=== PATIENT | male | born 1975 | race African-American/Black ===

== ENCOUNTER 2017-06-23 21:40 | Inpatient (IN) ==
[2017-06-23] MEDS ORDERED: ONDANSETRON 4 MG/2 ML VIAL IV STA (23:06)
[2017-06-23] MEDS ORDERED: SODIUM CHLORIDE 0.9% 2,000 ML IV STA (23:06)
[2017-06-23] MEDS ORDERED: CEFEPIME 2,000 MG in SODIUM CHLORIDE 0.9% 100 ML IV STA (23:09)
[2017-06-23] MEDS ORDERED: VANCOMYCIN INJ 1,000 MG in SODIUM CHLORIDE 0.9% 250 ML IV STA (23:09)
[2017-06-23] MEDS ORDERED: INSULIN REGULAR 100 UNIT/ML IV STA (23:13)
[2017-06-23] MEDS ORDERED: VANCOMYCIN 1,000 MG VIAL ONE (23:53)
[2017-06-23] MEDS ORDERED: ONDANSETRON 4 MG/2 ML VIAL ONE (23:53)
[2017-06-23] MEDS ORDERED: CEFEPIME 1,000 MG VIAL ONE (23:53)
[2017-06-23] MEDS ORDERED: INSULIN REGULAR 100 UNIT/ML ONE (23:54)
[2017-06-23 23:57] LABS: Basophils # 0.1 10*3/uL (0.0-0.2); Basophils % 0.3 % (0.0-0.8); Eosinophils % 0.1 % (0.00-10.9); Hematocrit 40.6 VOL% (42.0-52.0); Hemoglobin 14.2 GM/DL (14.0-18.0); Immature Granulocytes % 0.6 %; Immature Granulocytes Absolute 0.12 #; Lymphocytes % 15.5 % (21.2-54.2); Mean Corpuscular Hemoglobin 30 PG (27-34); Mean Corpuscular Volume 84.9 FL (87-102); Mean Platelet Volume 11.1 FL (9.6-12.0); Monocytes # 1.3 10*3/uL (0.11-0.8); Monocytes % 6.9 % (1.7-12.7); Neutrophils # 14.7 10*3/uL (1.4-7.4); Neutrophils % 76.6 % (38.7-73.9); Platelet Count 291 T/CUMM (130-400); Red Blood Count 4.78 MC/CUMM (3.8-5.5); Red Cell Distribution Width 11.6 % (9.3-17.3); White Blood Count 19.2 T/CUMM (4-12)
[2017-06-24 00:14] LABS: VBG Base Excess 2.5 MEQ/L (0-4); VBG HCO3 25.9 MEQ/L (24-28); VBG Oxygen Saturation 96.9 %; VBG PCO2 36.2 MMHG (41-51); VBG PH 7.472; VBG PO2 87.6 MMHG (17-40)
[2017-06-24 00:30] LABS: Lactic Acid 3.8 MMOL/L (0.4-2.0)
[2017-06-24] MEDS ORDERED: INSULIN REGULAR 100 UNIT/ML IV ONE (00:36)
[2017-06-24 00:41] LABS: Alanine Aminotransferase 13 U/L (16-61); Albumin 3.4 G/DL (3.4-5.0); Alkaline Phosphatase 148 U/L (45-117); Aspartate Amino Transferase 9 U/L (0-37); Blood Urea Nitrogen 8 MG/DL (7-18); Osmolality,Calculated 293.4 MOS/KG (273-304); Potassium 4.2 MMOL/L (3.5-5.1); Sodium 133 MMOL/L (136-145)
[2017-06-24 00:44] LABS: Glucose 630 MG/DL (74-106)
[2017-06-24] MEDS ORDERED: ONDANSETRON 4 MG/2 ML VIAL IV STA (00:45)
[2017-06-24] MEDS ORDERED: MORPHINE 4 MG/1 ML VIAL IV STA (00:45)
[2017-06-24] MEDS ORDERED: MORPHINE 10 MG/1 ML VIAL ONE (00:50)
[2017-06-24] MEDS ORDERED: DEXTROSE 50% 25 GM/50 ML VIAL IV PRN ×2 (00:57→01:02)
[2017-06-24] MEDS ORDERED: GLUCAGON 1 MG VIAL IM PRN ×2 (00:57→01:02)
[2017-06-24] MEDS ORDERED: INSULIN REGULAR DRIP 100 ML IV SCH (01:00)
[2017-06-24] MEDS ORDERED: ONDANSETRON 4 MG/2 ML VIAL IV PRN ×2 (01:02→09:45)
[2017-06-24 02:26] LABS: Apearance,Urine CLEAR (Clear); Bilirubin,Urine Negative (Negative); Blood, Urine Negative (Negative); Glucose,Urine (UA) >=500 mg/dL (Negative); Ketones,Urine Negative (Negative); Nitrite,Urine Negative (Negative); Protein,Urine Negative; RBC,Urine <1 /HPF (0-4); Urine Color Straw (Yellow); Urine Urobilinogen < 2.0 EU/DL (0.2-1.0)
[2017-06-24] MEDS: PIPERACILLIN/TAZOBACTAM 3,375 MG in SODIUM CHLORIDE 0.9% 100 ML IV SCH ×3 (03:34→18:23)
[2017-06-24] MEDS: SODIUM CHLORIDE 0.9% 1,000 ML IV SCH ×3 (03:34→18:24)
[2017-06-24] MEDS: MORPHINE 4 MG/1 ML VIAL IV PRN ×4 (07:15→20:43)
[2017-06-24] MEDS: VANCOMYCIN INJ 1,250 MG in SODIUM CHLORIDE 0.9% 250 ML IV SCH ×2 (07:18→16:00)
[2017-06-24] MEDS ORDERED: INSULIN REGULAR 100 UNIT/ML SUBCUT SCH (07:30)
[2017-06-24 07:37] LABS: Basophils # 0.1 10*3/uL (0.0-0.2); Basophils % 0.3 % (0.0-0.8); Eosinophils % 0.2 % (0.00-10.9); Hemoglobin 12.8 GM/DL (14.0-18.0); Immature Granulocytes % 0.8 %; Immature Granulocytes Absolute 0.15 #; Lymphocytes # 3.2 10*3/uL (1.4-4.0); Lymphocytes % 16.8 % (21.2-54.2); Mean Corpuscular HGB Conc 35.6 GM/DL (32-36); Mean Corpuscular Hemoglobin 30 PG (27-34); Mean Corpuscular Volume 83.9 FL (87-102); Monocytes # 1.6 10*3/uL (0.11-0.8); Monocytes % 8.4 % (1.7-12.7); Neutrophils % 73.5 % (38.7-73.9); Platelet Count 256 T/CUMM (130-400); Red Blood Count 4.29 MC/CUMM (3.8-5.5); Red Cell Distribution Width 11.7 % (9.3-17.3); White Blood Count 19.1 T/CUMM (4-12)
[2017-06-24] MEDS: INSULIN REGULAR 100 UNIT/ML SUBCUT SCH ×4 (07:52→20:44)
[2017-06-24 08:06] LABS: Band Neutrophils 1 % (0-10); Giant Platelets Few; Hypochromasia 1+; Lymphocytes 14 % (20-55); Platelet Estimate Adequate; Segmented Neutrophils 73 % (50-85); Total Cells Counted 100
[2017-06-24 08:09] LABS: Albumin 2.8 G/DL (3.4-5.0); Bilirubin,Total 0.8 MG/DL (0.2-1.0); Calcium 8.2 MG/DL (8.5-10.1); Osmolality,Calculated 282.3 MOS/KG (273-304); Potassium 3.5 MMOL/L (3.5-5.1); Total Protein 6.1 G/DL (6.4-8.3)
[2017-06-24] MEDS ORDERED: HYDROmorphone 2 MG/1 ML VIAL ONE (09:43)
[2017-06-24] MEDS ORDERED: ONDANSETRON 4 MG/2 ML VIAL ONE ×2 (09:43→09:46)
[2017-06-24] MEDS ORDERED: PROPOFOL 200 MG/20 ML VIAL IV ONE (09:45)
[2017-06-24] MEDS: HYDROmorphone 2 MG/1 ML VIAL IV PRN ×2 (09:45→09:50)
[2017-06-24] MEDS ORDERED: SUCCINYLCHOLINE 200 MG/10 ML VIAL ONE (09:46)
[2017-06-24] MEDS ORDERED: ROCURONIUM 100 MG/10 ML VIAL IV ONE (09:46)
[2017-06-24] MEDS ORDERED: SEVOFLURANE 1 UNIT/15 MINUTE INH ONE (09:46)
[2017-06-24] MEDS ORDERED: MIDAZOLAM 2 MG/2 ML VIAL ONE (09:46)
[2017-06-24] MEDS ORDERED: fentaNYL 100 MCG/2 ML VIAL ONE (09:46)
[2017-06-24] MEDS: PREGABALIN 75 MG CAPSULE PO SCH ×2 (10:46→20:44)
[2017-06-24] MEDS: ENOXAPARIN 40 MG/0.4 ML SYRINGE SUBCUT SCH (10:46)
[2017-06-24] MEDS: PRAVASTATIN 20 MG TABLET PO SCH (10:46)
[2017-06-24] MEDS ORDERED: ACETAMINOPHEN 325 MG TABLET PO PRN (16:24)
[2017-06-25] MEDS: VANCOMYCIN INJ 1,250 MG in SODIUM CHLORIDE 0.9% 250 ML IV SCH ×2 (00:34→07:45)
[2017-06-25] MEDS: MORPHINE 4 MG/1 ML VIAL IV PRN ×2 (01:04→08:45)
[2017-06-25] MEDS: PIPERACILLIN/TAZOBACTAM 3,375 MG in SODIUM CHLORIDE 0.9% 100 ML IV SCH ×3 (03:39→18:34)
[2017-06-25] MEDS: SODIUM CHLORIDE 0.9% 1,000 ML IV SCH ×3 (03:39→20:07)
[2017-06-25 04:28] LABS: Basophils # 0.1 10*3/uL (0.0-0.2); Basophils % 0.3 % (0.0-0.8); Eosinophils # 0.1 10*3/uL (0.0-0.87); Eosinophils % 0.8 % (0.00-10.9); Hematocrit 32.9 VOL% (42.0-52.0); Hemoglobin 11.5 GM/DL (14.0-18.0); Immature Granulocytes % 0.7 %; Immature Granulocytes Absolute 0.11 #; Lymphocytes # 3.3 10*3/uL (1.4-4.0); Lymphocytes % 19.7 % (21.2-54.2); Mean Corpuscular Hemoglobin 30 PG (27-34); Mean Corpuscular Volume 86.1 FL (87-102); Mean Platelet Volume 10.7 FL (9.6-12.0); Monocytes # 1.2 10*3/uL (0.11-0.8); Monocytes % 7.2 % (1.7-12.7); Neutrophils # 11.8 10*3/uL (1.4-7.4); Neutrophils % 71.3 % (38.7-73.9); Platelet Count 247 T/CUMM (130-400); Red Blood Count 3.82 MC/CUMM (3.8-5.5); Red Cell Distribution Width 11.6 % (9.3-17.3); White Blood Count 16.6 T/CUMM (4-12)
[2017-06-25 04:55] LABS: Osmolality,Calculated 285.4 MOS/KG (273-304); Potassium 3.7 MMOL/L (3.5-5.1)
[2017-06-25 05:22] LABS: Band Neutrophils 3 % (0-10); Eosinophils 2 % (0-10); Lymphocytes 16 % (20-55); Platelet Estimate Normal; Segmented Neutrophils 78 % (50-85); Total Cells Counted 100
[2017-06-25] MEDS: INSULIN REGULAR 100 UNIT/ML SUBCUT SCH ×4 (07:45→20:22)
[2017-06-25] MEDS: ENOXAPARIN 40 MG/0.4 ML SYRINGE SUBCUT SCH (08:45)
[2017-06-25] MEDS: PREGABALIN 75 MG CAPSULE PO SCH ×2 (08:46→20:22)
[2017-06-25] MEDS: PRAVASTATIN 20 MG TABLET PO SCH (08:46)
[2017-06-25] MEDS ORDERED: HYDROmorphone 2 MG/1 ML VIAL IV ONE (09:37)
[2017-06-25] MEDS ORDERED: INSULIN GLARGINE 100 UNIT/ML SUBCUT SCH (12:30)
[2017-06-25] MEDS: VANCOMYCIN INJ 1,500 MG in SODIUM CHLORIDE 0.9% 500 ML IV SCH ×2 (16:39→23:21)
[2017-06-25] MEDS: HYDROmorphone 2 MG/1 ML VIAL IV PRN (23:38)
[2017-06-26] MEDS: HYDROmorphone 2 MG/1 ML VIAL IV PRN (04:48)
[2017-06-26] MEDS: PIPERACILLIN/TAZOBACTAM 3,375 MG in SODIUM CHLORIDE 0.9% 100 ML IV SCH ×2 (04:50→12:07)
[2017-06-26 06:03] LABS: Basophils % 0.2 % (0.0-0.8); Eosinophils # 0.2 10*3/uL (0.0-0.87); Eosinophils % 1.2 % (0.00-10.9); Hematocrit 32.9 VOL% (42.0-52.0); Hemoglobin 11.7 GM/DL (14.0-18.0); Immature Granulocytes % 0.7 %; Immature Granulocytes Absolute 0.09 #; Lymphocytes # 3.6 10*3/uL (1.4-4.0); Lymphocytes % 27.7 % (21.2-54.2); Mean Corpuscular HGB Conc 35.6 GM/DL (32-36); Mean Corpuscular Hemoglobin 30 PG (27-34); Mean Corpuscular Volume 84.4 FL (87-102); Mean Platelet Volume 11.2 FL (9.6-12.0); Monocytes # 0.8 10*3/uL (0.11-0.8); Monocytes % 6.4 % (1.7-12.7); Neutrophils # 8.2 10*3/uL (1.4-7.4); Neutrophils % 63.8 % (38.7-73.9); Platelet Count 280 T/CUMM (130-400); Red Cell Distribution Width 11.7 % (9.3-17.3); White Blood Count 12.9 T/CUMM (4-12)
[2017-06-26 06:24] LABS: Calcium 8.3 MG/DL (8.5-10.1); Osmolality,Calculated 291.5 MOS/KG (273-304); Potassium 3.8 MMOL/L (3.5-5.1)
[2017-06-26] MEDS ORDERED: INSULIN GLARGINE 100 UNIT/ML SUBCUT SCH (09:00)
[2017-06-26] MEDS: VANCOMYCIN INJ 1,500 MG in SODIUM CHLORIDE 0.9% 500 ML IV SCH (09:02)
[2017-06-26] MEDS: INSULIN REGULAR 100 UNIT/ML SUBCUT SCH ×4 (09:03→20:39)
[2017-06-26] MEDS: PRAVASTATIN 20 MG TABLET PO SCH (09:04)
[2017-06-26] MEDS: PREGABALIN 75 MG CAPSULE PO SCH ×2 (09:04→20:38)
[2017-06-26] MEDS: ENOXAPARIN 40 MG/0.4 ML SYRINGE SUBCUT SCH (09:04)
[2017-06-26] MEDS ORDERED: MORPHINE 4 MG/1 ML VIAL IV PRN (09:13)
[2017-06-26] MEDS: SULFAMETHOX/TRIMETHOPRIM 800-160 MG TABLET PO SCH ×2 (14:44→20:38)
[2017-06-26] MEDS: INSULIN GLARGINE 100 UNIT/ML SUBCUT SCH (18:40)
[2017-06-26] MEDS: DOCUSATE SODIUM 100 MG CAPSULE PO SCH (21:31)
[2017-06-27 05:25] LABS: Basophils # 0.1 10*3/uL (0.0-0.2); Basophils % 0.4 % (0.0-0.8); Eosinophils # 0.2 10*3/uL (0.0-0.87); Eosinophils % 1.3 % (0.00-10.9); Hematocrit 34.9 VOL% (42.0-52.0); Hemoglobin 12.4 GM/DL (14.0-18.0); Immature Granulocytes % 1.3 %; Immature Granulocytes Absolute 0.15 #; Lymphocytes # 2.8 10*3/uL (1.4-4.0); Lymphocytes % 24.5 % (21.2-54.2); Mean Corpuscular HGB Conc 35.5 GM/DL (32-36); Mean Corpuscular Hemoglobin 30 PG (27-34); Mean Corpuscular Volume 84.1 FL (87-102); Mean Platelet Volume 10.9 FL (9.6-12.0); Monocytes # 0.8 10*3/uL (0.11-0.8); Monocytes % 7.1 % (1.7-12.7); Neutrophils # 7.6 10*3/uL (1.4-7.4); Neutrophils % 65.4 % (38.7-73.9); Platelet Count 318 T/CUMM (130-400); Red Blood Count 4.15 MC/CUMM (3.8-5.5); Red Cell Distribution Width 11.7 % (9.3-17.3); White Blood Count 11.6 T/CUMM (4-12)
[2017-06-27 05:58] LABS: Calcium 8.6 MG/DL (8.5-10.1); Osmolality,Calculated 288.7 MOS/KG (273-304); Potassium 3.6 MMOL/L (3.5-5.1)
[2017-06-27] MEDS ORDERED: INSULIN GLARGINE 100 UNIT/ML SUBCUT SCH (07:25)
[2017-06-27] MEDS: PRAVASTATIN 20 MG TABLET PO SCH (08:05)
[2017-06-27] MEDS: SULFAMETHOX/TRIMETHOPRIM 800-160 MG TABLET PO SCH (08:05)
[2017-06-27] MEDS: DOCUSATE SODIUM 100 MG CAPSULE PO SCH (08:05)
[2017-06-27] MEDS: PREGABALIN 75 MG CAPSULE PO SCH (08:05)
[2017-06-27] MEDS: ENOXAPARIN 40 MG/0.4 ML SYRINGE SUBCUT SCH (08:06)
[2017-06-27] MEDS: INSULIN REGULAR 100 UNIT/ML SUBCUT SCH (08:13)
[2017-06-27] MEDS: SODIUM CHLORIDE 0.9% 1,000 ML IV SCH ×2 (08:15→08:18)
[2017-06-27] MEDS: INSULIN GLARGINE 100 UNIT/ML SUBCUT SCH (08:19)
[2017-06-27 11:23] VITALS: BP 113/71
== END 2017-06-27 11:28 | disposition home or self-care (01) | DRG 710 ==
LOC: N.ED 21:40 → N.EDINP 06-24 01:02 → N.CC 06-24 02:52 → N.3E 06-25 21:50
PROVIDERS: ADMIT Internal Medicine; ATTEND Internal Medicine

== ENCOUNTER 2017-08-18 18:34 | Inpatient (IN) ==
[2017-08-24 17:55] VITALS: BP 130/69
== END 2017-08-24 19:13 | disposition left against medical advice (07) | DRG 364 ==
LOC: N.ED 18:34 → N.EDINP 21:47 → SUATTDRO 21:47 → N.EDINP 22:01 → N.5E 22:36
PROVIDERS: ADMIT Internal Medicine; ATTEND Internal Medicine

== ENCOUNTER 2017-08-25 12:57 | Inpatient (IN) ==
[2017-08-25] MEDS ORDERED: GLUCAGON 1 MG VIAL IM PRN (14:30)
[2017-08-25] MEDS ORDERED: DEXTROSE 50% 25 GM/50 ML VIAL IV PRN (14:30)
[2017-08-25 14:49] LABS: Lactic Acid 2.8 MMOL/L (0.4-2.0)
[2017-08-25 14:54] LABS: Basophils # 0.1 10*3/uL (0.0-0.2); Basophils % 0.4 % (0.0-0.8); Eosinophils # 0.1 10*3/uL (0.0-0.87); Eosinophils % 0.6 % (0.00-10.9); Hematocrit 38.1 VOL% (42.0-52.0); Hemoglobin 12.9 GM/DL (14.0-18.0); Immature Granulocytes % 1.1 %; Immature Granulocytes Absolute 0.15 #; Lymphocytes # 2.6 10*3/uL (1.4-4.0); Lymphocytes % 19.3 % (21.2-54.2); Mean Corpuscular HGB Conc 33.9 GM/DL (32-36); Mean Corpuscular Hemoglobin 30 PG (27-34); Mean Corpuscular Volume 87.4 FL (87-102); Monocytes # 0.8 10*3/uL (0.11-0.8); Monocytes % 5.9 % (1.7-12.7); Neutrophils # 9.8 10*3/uL (1.4-7.4); Neutrophils % 72.7 % (38.7-73.9); Platelet Count 433 T/CUMM (130-400); Red Blood Count 4.36 MC/CUMM (3.8-5.5); White Blood Count 13.5 T/CUMM (4-12)
[2017-08-25 15:08] LABS: Alanine Aminotransferase 19 U/L (16-61); Albumin 3.2 G/DL (3.4-5.0); Alkaline Phosphatase 112 U/L (45-117); Aspartate Amino Transferase 12 U/L (0-37); Bilirubin,Total < 0.39 MG/DL (0.2-1.0); Blood Urea Nitrogen 5 MG/DL (7-18); Glucose 307 MG/DL (74-106); Potassium 4.2 MMOL/L (3.5-5.1); Sodium 136 MMOL/L (136-145); Total Protein 7.6 G/DL (6.4-8.3)
[2017-08-25] MEDS ORDERED: SODIUM CHLORIDE 0.9% 2,200 ML IV ONE (16:59)
[2017-08-25] MEDS ORDERED: INSULIN ASPART PROTAMINE/ASPART 70/30 100 UNIT/ML SUBCUT SCH (17:00)
[2017-08-25] MEDS: INSULIN LISPRO 100 UNIT/ML SUBCUT SCH ×2 (17:04→21:08)
[2017-08-25] MEDS: PREGABALIN 75 MG CAPSULE PO SCH ×2 (17:04→21:05)
[2017-08-25 17:38] LABS: Apearance,Urine CLEAR (Clear); Bilirubin,Urine Negative (Negative); Blood, Urine Negative (Negative); Glucose,Urine (UA) >=500 mg/dL (Negative); Ketones,Urine Negative (Negative); Nitrite,Urine Negative (Negative); Protein,Urine Negative; RBC,Urine <1 /HPF (0-4); Urine Color Straw (Yellow); Urine Specific Gravity 1.011 (1.001-1.035); Urine Urobilinogen < 2.0 EU/DL (0.2-1.0)
[2017-08-25] MEDS: LEVOFLOXACIN INJ 750 MG in PREMIX 1 EACH IV SCH (17:44)
[2017-08-25] MEDS: ENOXAPARIN 40 MG/0.4 ML SYRINGE SUBCUT SCH (21:05)
[2017-08-25] MEDS: traZODone 50 MG TABLET PO SCH (21:05)
[2017-08-25] MEDS: VANCOMYCIN INJ 1,000 MG in SODIUM CHLORIDE 0.9% 250 ML IV SCH (21:05)
[2017-08-25] MEDS: SERTRALINE 25 MG TABLET PO SCH (21:06)
[2017-08-25] MEDS: INSULIN GLARGINE 100 UNIT/ML SUBCUT SCH (21:08)
[2017-08-25] MEDS: ZIPRASIDONE 20 MG CAPSULE PO SCH (21:08)
[2017-08-25] MEDS: MORPHINE 4 MG/1 ML VIAL IV PRN (21:42)
[2017-08-26 07:51] LABS: Basophils % 0.3 % (0.0-0.8); Eosinophils # 0.2 10*3/uL (0.0-0.87); Eosinophils % 1.4 % (0.00-10.9); Hematocrit 36.5 VOL% (42.0-52.0); Hemoglobin 12.6 GM/DL (14.0-18.0); Immature Granulocytes % 1.6 %; Immature Granulocytes Absolute 0.19 #; Lymphocytes # 3.5 10*3/uL (1.4-4.0); Lymphocytes % 29.1 % (21.2-54.2); Mean Corpuscular HGB Conc 34.5 GM/DL (32-36); Mean Corpuscular Hemoglobin 30 PG (27-34); Mean Corpuscular Volume 86.5 FL (87-102); Mean Platelet Volume 9.6 FL (9.6-12.0); Monocytes # 0.8 10*3/uL (0.11-0.8); Monocytes % 6.9 % (1.7-12.7); Neutrophils # 7.4 10*3/uL (1.4-7.4); Neutrophils % 60.7 % (38.7-73.9); Platelet Count 417 T/CUMM (130-400); Red Blood Count 4.22 MC/CUMM (3.8-5.5); Red Cell Distribution Width 12.9 % (9.3-17.3); White Blood Count 12.1 T/CUMM (4-12)
[2017-08-26 08:15] LABS: Calcium 9.1 MG/DL (8.5-10.1); Osmolality,Calculated 282.4 MOS/KG (273-304); Potassium 4.4 MMOL/L (3.5-5.1)
[2017-08-26] MEDS: MORPHINE 4 MG/1 ML VIAL IV PRN ×2 (08:30→17:36)
[2017-08-26] MEDS ORDERED: GLUCAGON 1 MG VIAL IM PRN (08:48)
[2017-08-26] MEDS ORDERED: DEXTROSE 50% 25 GM/50 ML VIAL IV PRN (08:48)
[2017-08-26] MEDS: VANCOMYCIN INJ 1,000 MG in SODIUM CHLORIDE 0.9% 250 ML IV SCH ×2 (09:00→21:50)
[2017-08-26] MEDS: INSULIN LISPRO 100 UNIT/ML SUBCUT SCH ×4 (10:18→21:51)
[2017-08-26] MEDS: INSULIN ASPART PROTAMINE/ASPART 70/30 100 UNIT/ML SUBCUT SCH ×3 (10:18→16:05)
[2017-08-26] MEDS: PRAVASTATIN 20 MG TABLET PO SCH (10:19)
[2017-08-26] MEDS: PREGABALIN 75 MG CAPSULE PO SCH ×3 (10:19→21:45)
[2017-08-26] MEDS: ZIPRASIDONE 20 MG CAPSULE PO SCH ×2 (10:19→21:45)
[2017-08-26] MEDS: LISINOPRIL 2.5 MG TABLET PO SCH (10:20)
[2017-08-26] MEDS: LEVOFLOXACIN INJ 750 MG in PREMIX 1 EACH IV SCH (17:07)
[2017-08-26] MEDS: SERTRALINE 25 MG TABLET PO SCH (21:45)
[2017-08-26] MEDS: traZODone 50 MG TABLET PO SCH (21:45)
[2017-08-26] MEDS: ENOXAPARIN 40 MG/0.4 ML SYRINGE SUBCUT SCH (21:46)
[2017-08-26] MEDS: INSULIN GLARGINE 100 UNIT/ML SUBCUT SCH (21:47)
[2017-08-27] MEDS: MORPHINE 4 MG/1 ML VIAL IV PRN ×4 (01:19→21:53)
[2017-08-27 05:16] LABS: Basophils # 0.1 10*3/uL (0.0-0.2); Basophils % 0.5 % (0.0-0.8); Eosinophils # 0.1 10*3/uL (0.0-0.87); Eosinophils % 1.1 % (0.00-10.9); Hematocrit 33.9 VOL% (42.0-52.0); Hemoglobin 11.6 GM/DL (14.0-18.0); Immature Granulocytes % 3.8 %; Immature Granulocytes Absolute 0.47 #; Lymphocytes # 4.4 10*3/uL (1.4-4.0); Lymphocytes % 35.6 % (21.2-54.2); Mean Corpuscular HGB Conc 34.2 GM/DL (32-36); Mean Corpuscular Hemoglobin 30 PG (27-34); Mean Corpuscular Volume 86.3 FL (87-102); Mean Platelet Volume 9.7 FL (9.6-12.0); Monocytes # 0.8 10*3/uL (0.11-0.8); Monocytes % 6.8 % (1.7-12.7); Neutrophils # 6.4 10*3/uL (1.4-7.4); Neutrophils % 52.2 % (38.7-73.9); Platelet Count 370 T/CUMM (130-400); Red Blood Count 3.93 MC/CUMM (3.8-5.5); Red Cell Distribution Width 12.8 % (9.3-17.3); White Blood Count 12.3 T/CUMM (4-12)
[2017-08-27] MEDS: VANCOMYCIN INJ 1,000 MG in SODIUM CHLORIDE 0.9% 250 ML IV SCH ×2 (08:40→21:54)
[2017-08-27] MEDS: INSULIN LISPRO 100 UNIT/ML SUBCUT SCH ×4 (08:42→21:12)
[2017-08-27] MEDS: INSULIN ASPART PROTAMINE/ASPART 70/30 100 UNIT/ML SUBCUT SCH ×3 (08:42→18:08)
[2017-08-27] MEDS: PREGABALIN 75 MG CAPSULE PO SCH ×3 (08:46→21:01)
[2017-08-27] MEDS: ZIPRASIDONE 20 MG CAPSULE PO SCH ×2 (08:46→21:01)
[2017-08-27] MEDS: PRAVASTATIN 20 MG TABLET PO SCH (08:47)
[2017-08-27] MEDS: LISINOPRIL 2.5 MG TABLET PO SCH (08:47)
[2017-08-27] MEDS: LEVOFLOXACIN INJ 750 MG in PREMIX 1 EACH IV SCH (17:47)
[2017-08-27] MEDS: traZODone 50 MG TABLET PO SCH (21:01)
[2017-08-27] MEDS: SERTRALINE 25 MG TABLET PO SCH (21:01)
[2017-08-27] MEDS: ENOXAPARIN 40 MG/0.4 ML SYRINGE SUBCUT SCH (21:08)
[2017-08-27] MEDS: INSULIN GLARGINE 100 UNIT/ML SUBCUT SCH (21:11)
[2017-08-28 04:49] LABS: Basophils # 0.1 10*3/uL (0.0-0.2); Basophils % 0.5 % (0.0-0.8); Eosinophils # 0.1 10*3/uL (0.0-0.87); Eosinophils % 1.2 % (0.00-10.9); Hematocrit 33.5 VOL% (42.0-52.0); Hemoglobin 11.2 GM/DL (14.0-18.0); Immature Granulocytes % 2.9 %; Immature Granulocytes Absolute 0.34 #; Lymphocytes % 34.1 % (21.2-54.2); Mean Corpuscular HGB Conc 33.4 GM/DL (32-36); Mean Corpuscular Hemoglobin 30 PG (27-34); Mean Corpuscular Volume 88.4 FL (87-102); Mean Platelet Volume 9.4 FL (9.6-12.0); Monocytes # 0.7 10*3/uL (0.11-0.8); Neutrophils # 6.5 10*3/uL (1.4-7.4); Neutrophils % 55.3 % (38.7-73.9); Platelet Count 336 T/CUMM (130-400); Red Blood Count 3.79 MC/CUMM (3.8-5.5); Red Cell Distribution Width 12.6 % (9.3-17.3); White Blood Count 11.7 T/CUMM (4-12)
[2017-08-28 05:13] LABS: Calcium 8.4 MG/DL (8.5-10.1); Osmolality,Calculated 280.3 MOS/KG (273-304); Potassium 3.8 MMOL/L (3.5-5.1)
[2017-08-28] MEDS: MORPHINE 4 MG/1 ML VIAL IV PRN ×3 (07:17→20:19)
[2017-08-28] MEDS: INSULIN LISPRO 100 UNIT/ML SUBCUT SCH ×4 (07:30→20:05)
[2017-08-28] MEDS: INSULIN ASPART PROTAMINE/ASPART 70/30 100 UNIT/ML SUBCUT SCH ×3 (08:00→17:22)
[2017-08-28] MEDS: ZIPRASIDONE 20 MG CAPSULE PO SCH ×2 (09:13→20:05)
[2017-08-28] MEDS: PREGABALIN 75 MG CAPSULE PO SCH ×3 (09:14→20:05)
[2017-08-28] MEDS: PRAVASTATIN 20 MG TABLET PO SCH (09:14)
[2017-08-28] MEDS: LISINOPRIL 2.5 MG TABLET PO SCH (09:14)
[2017-08-28] MEDS: VANCOMYCIN INJ 1,000 MG in SODIUM CHLORIDE 0.9% 250 ML IV SCH ×2 (11:02→18:51)
[2017-08-28] MEDS: LEVOFLOXACIN INJ 750 MG in PREMIX 1 EACH IV SCH (17:21)
[2017-08-28] MEDS: traZODone 50 MG TABLET PO SCH (20:05)
[2017-08-28] MEDS: INSULIN GLARGINE 100 UNIT/ML SUBCUT SCH (20:05)
[2017-08-28] MEDS: SERTRALINE 25 MG TABLET PO SCH (20:06)
[2017-08-28] MEDS: ENOXAPARIN 40 MG/0.4 ML SYRINGE SUBCUT SCH (20:06)
[2017-08-29] MEDS: MORPHINE 4 MG/1 ML VIAL IV PRN ×2 (00:45→06:50)
[2017-08-29] MEDS: VANCOMYCIN INJ 1,000 MG in SODIUM CHLORIDE 0.9% 250 ML IV SCH ×2 (02:48→11:10)
[2017-08-29 06:40] VITALS: BP 109/62
[2017-08-29] MEDS: PREGABALIN 75 MG CAPSULE PO SCH (09:25)
[2017-08-29] MEDS: LISINOPRIL 2.5 MG TABLET PO SCH (09:25)
[2017-08-29] MEDS: PRAVASTATIN 20 MG TABLET PO SCH (09:25)
[2017-08-29] MEDS: ZIPRASIDONE 20 MG CAPSULE PO SCH (09:26)
[2017-08-29] MEDS: INSULIN ASPART PROTAMINE/ASPART 70/30 100 UNIT/ML SUBCUT SCH ×2 (09:27→11:08)
[2017-08-29] MEDS: INSULIN LISPRO 100 UNIT/ML SUBCUT SCH ×2 (09:27→11:08)
== END 2017-08-29 13:22 | disposition home health service (06) | DRG 383 ==
LOC: N.ED 12:57 → N.EDINP 14:27 → SUATTDRO 14:27 → N.3E 15:53
PROVIDERS: ADMIT Internal Medicine; ATTEND Internal Medicine

== ENCOUNTER 2017-09-04 13:08 | Inpatient (IN) ==
[2017-09-09 12:20] VITALS: BP 118/82
== END 2017-09-09 13:15 | disposition home or self-care (01) | DRG 305 ==
LOC: N.ED 13:08 → N.EDINP 16:01 → N.2E 17:25
PROVIDERS: ADMIT Family Medicine; ATTEND Family Medicine

== ENCOUNTER 2017-10-16 12:30 | Inpatient (IN) ==
[2017-10-16] MEDS ORDERED: SODIUM CHLORIDE 0.9% 1,000 ML IV STA (14:20)
[2017-10-16 14:53] LABS: Basophils % 0.3 % (0.0-0.8); Eosinophils # 0.1 10*3/uL (0.0-0.87); Eosinophils % 0.5 % (0.00-10.9); Hematocrit 39.3 VOL% (42.0-52.0); Hemoglobin 14.1 GM/DL (14.0-18.0); Immature Granulocytes % 0.3 %; Immature Granulocytes Absolute 0.03 #; Lymphocytes # 3.2 10*3/uL (1.4-4.0); Lymphocytes % 30.8 % (21.2-54.2); Mean Corpuscular HGB Conc 35.9 GM/DL (32-36); Mean Corpuscular Hemoglobin 29 PG (27-34); Mean Platelet Volume 10.6 FL (9.6-12.0); Monocytes # 0.6 10*3/uL (0.11-0.8); Monocytes % 5.4 % (1.7-12.7); Neutrophils # 6.4 10*3/uL (1.4-7.4); Neutrophils % 62.7 % (38.7-73.9); Platelet Count 285 T/CUMM (130-400); Red Blood Count 4.79 MC/CUMM (3.8-5.5); Red Cell Distribution Width 12.8 % (9.3-17.3); White Blood Count 10.3 T/CUMM (4-12)
[2017-10-16] MEDS ORDERED: PIPERACILLIN/TAZOBACTAM 3,375 MG in SODIUM CHLORIDE 0.9% 100 ML IV STA (14:55)
[2017-10-16] MEDS ORDERED: MORPHINE 4 MG/1 ML VIAL IV STA ×2 (14:56→16:45)
[2017-10-16] MEDS ORDERED: ONDANSETRON 4 MG/2 ML VIAL IV STA (14:56)
[2017-10-16 15:21] LABS: Calcium 9.8 MG/DL (8.5-10.1); Osmolality,Calculated 285.1 MOS/KG (273-304); Potassium 4.1 MMOL/L (3.5-5.1)
[2017-10-16] MEDS ORDERED: INSULIN REGULAR 100 UNIT/ML SUBCUT STA (15:45)
[2017-10-16] MEDS ORDERED: INSULIN REGULAR 100 UNIT/ML ONE (15:52)
[2017-10-16] MEDS ORDERED: MORPHINE 4 MG/1 ML VIAL ONE (16:46)
[2017-10-16] MEDS ORDERED: GLUCAGON 1 MG VIAL IM PRN (18:21)
[2017-10-16] MEDS ORDERED: DEXTROSE 50% 25 GM/50 ML VIAL IV PRN (18:21)
[2017-10-16] MEDS ORDERED: VANCOMYCIN INJ 1,000 MG in SODIUM CHLORIDE 0.9% 250 ML IV ONE (19:30)
[2017-10-16] MEDS: SODIUM CHLORIDE 0.9% 1,000 ML IV SCH (19:53)
[2017-10-16] MEDS: PREGABALIN 75 MG CAPSULE PO SCH (21:33)
[2017-10-16] MEDS: SERTRALINE 25 MG TABLET PO SCH (21:33)
[2017-10-16] MEDS: PRAVASTATIN 20 MG TABLET PO SCH (21:33)
[2017-10-16] MEDS: INSULIN LISPRO 100 UNIT/ML SUBCUT SCH (21:38)
[2017-10-16] MEDS: INSULIN GLARGINE 100 UNIT/ML SUBCUT SCH (21:38)
[2017-10-17] MEDS: MORPHINE 4 MG/1 ML VIAL IV PRN ×5 (00:39→21:11)
[2017-10-17 06:18] LABS: Basophils % 0.4 % (0.0-0.8); Eosinophils # 0.1 10*3/uL (0.0-0.87); Eosinophils % 0.9 % (0.00-10.9); Hemoglobin 12.9 GM/DL (14.0-18.0); Immature Granulocytes % 0.5 %; Immature Granulocytes Absolute 0.05 #; Lymphocytes # 3.6 10*3/uL (1.4-4.0); Mean Corpuscular HGB Conc 34.9 GM/DL (32-36); Mean Corpuscular Hemoglobin 29 PG (27-34); Mean Corpuscular Volume 83.9 FL (87-102); Mean Platelet Volume 10.5 FL (9.6-12.0); Monocytes # 0.6 10*3/uL (0.11-0.8); Monocytes % 5.6 % (1.7-12.7); Neutrophils # 6.3 10*3/uL (1.4-7.4); Neutrophils % 58.6 % (38.7-73.9); Platelet Count 275 T/CUMM (130-400); Red Blood Count 4.41 MC/CUMM (3.8-5.5); Red Cell Distribution Width 12.9 % (9.3-17.3); White Blood Count 10.7 T/CUMM (4-12)
[2017-10-17 06:38] LABS: Albumin 3.3 G/DL (3.4-5.0); Bilirubin,Total 0.4 MG/DL (0.2-1.0); Calcium 8.5 MG/DL (8.5-10.1); Osmolality,Calculated 285.3 MOS/KG (273-304); Total Protein 6.9 G/DL (6.4-8.3)
[2017-10-17] MEDS: PREGABALIN 75 MG CAPSULE PO SCH ×3 (08:46→21:10)
[2017-10-17] MEDS: INSULIN LISPRO 100 UNIT/ML SUBCUT SCH ×4 (08:46→21:10)
[2017-10-17] MEDS: LISINOPRIL 2.5 MG TABLET PO SCH (08:46)
[2017-10-17] MEDS: SODIUM HYPOCHLORITE 0.25% IRRIG 473 ML BOTTLE TOP SCH (08:50)
[2017-10-17] MEDS ORDERED: LORazepam 0.5 MG TABLET PO PRN (12:33)
[2017-10-17 12:42] LABS: Barbiturates Screen,Urine Negative (Negative); Benzodiazepines Screen,Urine Negative (Negative); Cannabinoid Screen,Urine Positive (Negative); Opiate Screen,Urine Positive (Negative); Phencyclidine Screen,Urine Negative (Negative)
[2017-10-17] MEDS: SODIUM CHLORIDE 0.9% 1,000 ML IV SCH (13:16)
[2017-10-17] MEDS: PIPERACILLIN/TAZOBACTAM 3,375 MG in SODIUM CHLORIDE 0.9% 100 ML IV SCH ×2 (13:51→21:10)
[2017-10-17] MEDS: VANCOMYCIN INJ 1,250 MG in SODIUM CHLORIDE 0.9% 250 ML IV SCH (17:51)
[2017-10-17] MEDS: PRAVASTATIN 20 MG TABLET PO SCH (21:10)
[2017-10-17] MEDS: INSULIN GLARGINE 100 UNIT/ML SUBCUT SCH (21:10)
[2017-10-17] MEDS: SERTRALINE 25 MG TABLET PO SCH (21:10)
[2017-10-18] MEDS: MORPHINE 4 MG/1 ML VIAL IV PRN ×4 (03:28→21:39)
[2017-10-18 05:28] LABS: Basophils # 0.1 10*3/uL (0.0-0.2); Basophils % 0.4 % (0.0-0.8); Eosinophils # 0.1 10*3/uL (0.0-0.87); Eosinophils % 0.9 % (0.00-10.9); Hemoglobin 12.3 GM/DL (14.0-18.0); Immature Granulocytes % 0.6 %; Immature Granulocytes Absolute 0.07 #; Lymphocytes # 3.7 10*3/uL (1.4-4.0); Lymphocytes % 31.8 % (21.2-54.2); Mean Corpuscular HGB Conc 34.2 GM/DL (32-36); Mean Corpuscular Hemoglobin 29 PG (27-34); Mean Corpuscular Volume 85.7 FL (87-102); Mean Platelet Volume 10.5 FL (9.6-12.0); Monocytes # 0.6 10*3/uL (0.11-0.8); Monocytes % 5.2 % (1.7-12.7); Neutrophils # 7.1 10*3/uL (1.4-7.4); Neutrophils % 61.1 % (38.7-73.9); Platelet Count 256 T/CUMM (130-400); Red Cell Distribution Width 12.8 % (9.3-17.3); White Blood Count 11.7 T/CUMM (4-12)
[2017-10-18] MEDS: VANCOMYCIN INJ 1,250 MG in SODIUM CHLORIDE 0.9% 250 ML IV SCH ×2 (05:50→16:45)
[2017-10-18] MEDS: SODIUM CHLORIDE 0.9% 1,000 ML IV SCH ×2 (05:51→11:31)
[2017-10-18 06:03] LABS: Calcium 8.4 MG/DL (8.5-10.1); Osmolality,Calculated 279.5 MOS/KG (273-304); Potassium 3.9 MMOL/L (3.5-5.1)
[2017-10-18] MEDS: PREGABALIN 75 MG CAPSULE PO SCH ×3 (10:56→21:15)
[2017-10-18] MEDS: LISINOPRIL 2.5 MG TABLET PO SCH (10:56)
[2017-10-18] MEDS: PIPERACILLIN/TAZOBACTAM 3,375 MG in SODIUM CHLORIDE 0.9% 100 ML IV SCH ×2 (10:56→19:25)
[2017-10-18] MEDS: INSULIN LISPRO 100 UNIT/ML SUBCUT SCH ×4 (10:58→21:16)
[2017-10-18] MEDS: SODIUM HYPOCHLORITE 0.25% IRRIG 473 ML BOTTLE TOP SCH (11:10)
[2017-10-18] MEDS: SERTRALINE 25 MG TABLET PO SCH (21:15)
[2017-10-18] MEDS: INSULIN GLARGINE 100 UNIT/ML SUBCUT SCH (21:15)
[2017-10-18] MEDS: PRAVASTATIN 20 MG TABLET PO SCH (21:15)
[2017-10-19] MEDS: MORPHINE 4 MG/1 ML VIAL IV PRN ×3 (01:40→21:32)
[2017-10-19] MEDS: SODIUM CHLORIDE 0.9% 1,000 ML IV SCH ×2 (02:39→14:20)
[2017-10-19] MEDS: VANCOMYCIN INJ 1,250 MG in SODIUM CHLORIDE 0.9% 250 ML IV SCH (03:57)
[2017-10-19] MEDS: PIPERACILLIN/TAZOBACTAM 3,375 MG in SODIUM CHLORIDE 0.9% 100 ML IV SCH (05:36)
[2017-10-19 06:09] LABS: Basophils # 0.1 10*3/uL (0.0-0.2); Basophils % 0.6 % (0.0-0.8); Eosinophils # 0.2 10*3/uL (0.0-0.87); Hematocrit 33.6 VOL% (42.0-52.0); Hemoglobin 11.1 GM/DL (14.0-18.0); Immature Granulocytes % 0.5 %; Immature Granulocytes Absolute 0.05 #; Lymphocytes # 5.1 10*3/uL (1.4-4.0); Mean Corpuscular Hemoglobin 29 PG (27-34); Mean Platelet Volume 10.7 FL (9.6-12.0); Monocytes # 0.6 10*3/uL (0.11-0.8); Monocytes % 5.8 % (1.7-12.7); Neutrophils # 4.8 10*3/uL (1.4-7.4); Neutrophils % 44.1 % (38.7-73.9); Platelet Count 250 T/CUMM (130-400); Red Blood Count 3.86 MC/CUMM (3.8-5.5); Red Cell Distribution Width 13.2 % (9.3-17.3); White Blood Count 10.9 T/CUMM (4-12)
[2017-10-19 06:24] LABS: Calcium 8.3 MG/DL (8.5-10.1); Osmolality,Calculated 283.4 MOS/KG (273-304); Potassium 3.7 MMOL/L (3.5-5.1)
[2017-10-19] MEDS: INSULIN LISPRO 100 UNIT/ML SUBCUT SCH ×4 (08:54→22:07)
[2017-10-19] MEDS: PREGABALIN 75 MG CAPSULE PO SCH ×3 (08:54→21:35)
[2017-10-19] MEDS: LISINOPRIL 2.5 MG TABLET PO SCH (08:54)
[2017-10-19] MEDS: NICOTINE 14 MG/24 HR PATCH TRANSDERM SCH (08:55)
[2017-10-19] MEDS: CEFEPIME 1,000 MG in SYRINGE 1 EACH IV SCH ×2 (13:57→21:34)
[2017-10-19] MEDS: SODIUM HYPOCHLORITE 0.25% IRRIG 473 ML BOTTLE TOP SCH (14:00)
[2017-10-19] MEDS: SERTRALINE 25 MG TABLET PO SCH (21:35)
[2017-10-19] MEDS: PRAVASTATIN 20 MG TABLET PO SCH (21:35)
[2017-10-19] MEDS: INSULIN GLARGINE 100 UNIT/ML SUBCUT SCH (22:07)
[2017-10-19] MEDS: ENOXAPARIN 40 MG/0.4 ML SYRINGE SUBCUT SCH (22:51)
[2017-10-20] MEDS: MORPHINE 4 MG/1 ML VIAL IV PRN ×4 (00:56→19:46)
[2017-10-20] MEDS: SODIUM CHLORIDE 0.9% 1,000 ML IV SCH ×2 (04:26→18:58)
[2017-10-20] MEDS: CEFEPIME 1,000 MG in SYRINGE 1 EACH IV SCH ×3 (04:26→21:44)
[2017-10-20 06:09] LABS: Basophils # 0.1 10*3/uL (0.0-0.2); Basophils % 0.5 % (0.0-0.8); Eosinophils # 0.2 10*3/uL (0.0-0.87); Eosinophils % 1.7 % (0.00-10.9); Hematocrit 36.4 VOL% (42.0-52.0); Hemoglobin 12.2 GM/DL (14.0-18.0); Immature Granulocytes % 0.3 %; Immature Granulocytes Absolute 0.04 #; Lymphocytes # 4.8 10*3/uL (1.4-4.0); Lymphocytes % 41.7 % (21.2-54.2); Mean Corpuscular HGB Conc 33.5 GM/DL (32-36); Mean Corpuscular Hemoglobin 29 PG (27-34); Mean Corpuscular Volume 85.4 FL (87-102); Mean Platelet Volume 10.8 FL (9.6-12.0); Monocytes # 0.8 10*3/uL (0.11-0.8); Monocytes % 6.7 % (1.7-12.7); Neutrophils # 5.6 10*3/uL (1.4-7.4); Neutrophils % 49.1 % (38.7-73.9); Platelet Count 257 T/CUMM (130-400); Red Blood Count 4.26 MC/CUMM (3.8-5.5); Red Cell Distribution Width 13.2 % (9.3-17.3); White Blood Count 11.5 T/CUMM (4-12)
[2017-10-20 06:36] LABS: Calcium 8.3 MG/DL (8.5-10.1); Osmolality,Calculated 284.1 MOS/KG (273-304); Potassium 4.2 MMOL/L (3.5-5.1)
[2017-10-20] MEDS: INSULIN LISPRO 100 UNIT/ML SUBCUT SCH ×4 (11:22→21:44)
[2017-10-20] MEDS: LISINOPRIL 2.5 MG TABLET PO SCH (11:32)
[2017-10-20] MEDS: NICOTINE 14 MG/24 HR PATCH TRANSDERM SCH (11:32)
[2017-10-20] MEDS: PREGABALIN 75 MG CAPSULE PO SCH ×3 (11:34→21:43)
[2017-10-20] MEDS: SODIUM HYPOCHLORITE 0.25% IRRIG 473 ML BOTTLE TOP SCH (11:40)
[2017-10-20] MEDS: SERTRALINE 25 MG TABLET PO SCH (21:42)
[2017-10-20] MEDS: PRAVASTATIN 20 MG TABLET PO SCH (21:42)
[2017-10-20] MEDS: ENOXAPARIN 40 MG/0.4 ML SYRINGE SUBCUT SCH (21:43)
[2017-10-20] MEDS: INSULIN GLARGINE 100 UNIT/ML SUBCUT SCH (21:44)
[2017-10-21] MEDS: MORPHINE 4 MG/1 ML VIAL IV PRN ×3 (00:01→09:29)
[2017-10-21] MEDS: CEFEPIME 1,000 MG in SYRINGE 1 EACH IV SCH ×2 (04:49→13:10)
[2017-10-21 05:21] LABS: Basophils # 0.1 10*3/uL (0.0-0.2); Basophils % 0.6 % (0.0-0.8); Eosinophils # 0.1 10*3/uL (0.0-0.87); Eosinophils % 1.5 % (0.00-10.9); Hematocrit 34.4 VOL% (42.0-52.0); Hemoglobin 11.8 GM/DL (14.0-18.0); Immature Granulocytes % 0.6 %; Immature Granulocytes Absolute 0.06 #; Lymphocytes # 3.7 10*3/uL (1.4-4.0); Lymphocytes % 39.5 % (21.2-54.2); Mean Corpuscular HGB Conc 34.3 GM/DL (32-36); Mean Corpuscular Hemoglobin 29 PG (27-34); Mean Corpuscular Volume 84.5 FL (87-102); Mean Platelet Volume 10.8 FL (9.6-12.0); Monocytes # 0.7 10*3/uL (0.11-0.8); Monocytes % 7.1 % (1.7-12.7); Neutrophils # 4.7 10*3/uL (1.4-7.4); Neutrophils % 50.7 % (38.7-73.9); Platelet Count 268 T/CUMM (130-400); Red Blood Count 4.07 MC/CUMM (3.8-5.5); Red Cell Distribution Width 13.2 % (9.3-17.3); White Blood Count 9.3 T/CUMM (4-12)
[2017-10-21] MEDS: SODIUM CHLORIDE 0.9% 1,000 ML IV SCH (05:43)
[2017-10-21 05:50] LABS: Calcium 8.4 MG/DL (8.5-10.1); Osmolality,Calculated 287.4 MOS/KG (273-304); Potassium 3.6 MMOL/L (3.5-5.1)
[2017-10-21] MEDS: PREGABALIN 75 MG CAPSULE PO SCH ×2 (09:25→15:20)
[2017-10-21] MEDS: LISINOPRIL 2.5 MG TABLET PO SCH (09:26)
[2017-10-21] MEDS: NICOTINE 14 MG/24 HR PATCH TRANSDERM SCH (09:26)
[2017-10-21] MEDS: INSULIN LISPRO 100 UNIT/ML SUBCUT SCH ×2 (09:28→11:40)
[2017-10-21] MEDS: SODIUM HYPOCHLORITE 0.25% IRRIG 473 ML BOTTLE TOP SCH (09:34)
[2017-10-21 12:34] VITALS: BP 156/87
== END 2017-10-21 15:45 | disposition home or self-care (01) | DRG 420 ==
LOC: N.ED 12:30 → N.EDINP 18:30 → N.3E 18:52
PROVIDERS: ADMIT Family Medicine; ATTEND Family Medicine

== ENCOUNTER 2018-06-24 12:21 | Observation (INO) ==
[2018-06-24] MEDS ORDERED: ONDANSETRON 4 MG/2 ML VIAL IV STA (13:23)
[2018-06-24] MEDS ORDERED: METOCLOPRAMIDE 10 MG/2 ML VIAL IV STA (13:23)
[2018-06-24] MEDS ORDERED: SODIUM CHLORIDE 0.9% 1,000 ML IV STA (13:23)
[2018-06-24 13:36] LABS: Basophils # 0.1 10*3/uL (0.0-0.2); Basophils % 0.4 % (0.0-0.8); Eosinophils % 0.1 % (0.00-10.9); Hematocrit 43.9 VOL% (42.0-52.0); Hemoglobin 15.4 GM/DL (14.0-18.0); Immature Granulocytes % 0.5 %; Immature Granulocytes Absolute 0.07 #; Lymphocytes # 4.4 10*3/uL (1.4-4.0); Lymphocytes % 32.5 % (21.2-54.2); Mean Corpuscular HGB Conc 35.1 GM/DL (32-36); Mean Corpuscular Volume 84.9 FL (87-102); Monocytes % 4.3 % (1.7-12.7); Neutrophils % 62.2 % (38.7-73.9); Platelet Count 293 T/CUMM (130-400); Red Blood Count 5.17 MC/CUMM (3.8-5.5); Red Cell Distribution Width 12.2 % (9.3-17.3); White Blood Count 13.5 T/CUMM (4-12)
[2018-06-24 13:54] LABS: Albumin 4.2 G/DL (3.4-5.0); Bilirubin,Total 0.8 MG/DL (0.2-1.0); Calcium 9.6 MG/DL (8.5-10.1); Osmolality,Calculated 285.7 MOS/KG (273-304)
[2018-06-24] MEDS ORDERED: PROMETHAZINE 25 MG/1 ML VIAL ONE (14:37)
[2018-06-24] MEDS ORDERED: PROMETHAZINE 25 MG/1 ML VIAL IM STA (14:40)
[2018-06-24] MEDS ORDERED: ACETAMINOPHEN 325 MG TABLET PO PRN (15:45)
[2018-06-24] MEDS ORDERED: DEXTROSE 50% 25 GM/50 ML VIAL IV PRN (15:45)
[2018-06-24] MEDS ORDERED: GLUCAGON 1 MG VIAL IM PRN (15:45)
[2018-06-24] MEDS ORDERED: ONDANSETRON 4 MG/2 ML VIAL IV PRN (15:45)
[2018-06-24] MEDS ORDERED: PROMETHAZINE 12.5 MG SUPP RECTAL PRN (15:45)
[2018-06-24] MEDS: SODIUM CHLORIDE 0.9% 1,000 ML IV SCH (16:15)
[2018-06-24] MEDS: METOCLOPRAMIDE 10 MG/2 ML VIAL IV SCH ×2 (16:15→20:27)
[2018-06-24] MEDS: INSULIN REGULAR 100 UNIT/ML SUBCUT SCH (17:56)
[2018-06-24] MEDS: AZITHROMYCIN INJ 500 MG in SODIUM CHLORIDE 0.9% 250 ML IV SCH (18:54)
[2018-06-24] MEDS: HYDROmorphone 2 MG/1 ML VIAL IV PRN (18:55)
[2018-06-24] MEDS: DOCUSATE SODIUM 100 MG CAPSULE PO SCH (20:28)
[2018-06-25] MEDS: HYDROmorphone 2 MG/1 ML VIAL IV PRN ×6 (00:20→23:19)
[2018-06-25] MEDS: INSULIN REGULAR 100 UNIT/ML SUBCUT SCH ×4 (00:20→18:45)
[2018-06-25] MEDS: SODIUM CHLORIDE 0.9% 1,000 ML IV SCH ×4 (00:24→23:34)
[2018-06-25] MEDS: PANTOPRAZOLE 40 MG VIAL IV SCH (08:24)
[2018-06-25] MEDS: DOCUSATE SODIUM 100 MG CAPSULE PO SCH ×2 (08:25→21:10)
[2018-06-25] MEDS: METOCLOPRAMIDE 10 MG/2 ML VIAL IV SCH ×4 (08:25→21:09)
[2018-06-25] MEDS: AZITHROMYCIN INJ 500 MG in SODIUM CHLORIDE 0.9% 250 ML IV SCH (18:45)
[2018-06-26] MEDS: INSULIN REGULAR 100 UNIT/ML SUBCUT SCH ×3 (00:45→12:56)
[2018-06-26] MEDS: HYDROmorphone 2 MG/1 ML VIAL IV PRN ×3 (06:24→12:55)
[2018-06-26 08:01] VITALS: BP 140/86
[2018-06-26] MEDS: SODIUM CHLORIDE 0.9% 1,000 ML IV SCH ×2 (09:18→12:58)
[2018-06-26] MEDS: PANTOPRAZOLE 40 MG VIAL IV SCH (09:18)
[2018-06-26] MEDS: METOCLOPRAMIDE 10 MG/2 ML VIAL IV SCH ×2 (09:19→12:54)
[2018-06-26] MEDS: DOCUSATE SODIUM 100 MG CAPSULE PO SCH (09:20)
== END 2018-06-26 16:20 | disposition home or self-care (01) ==
LOC: N.EDINP 12:21 → N.ED 12:21 → N.5E 15:37
PROVIDERS: ADMIT Family Medicine; ATTEND Family Medicine

== ENCOUNTER 2019-04-12 09:08 | Inpatient (IN) ==
[2019-04-12] MEDS ORDERED: SODIUM CHLORIDE 0.9% 1,000 ML IV STA (09:30)
[2019-04-12] MEDS ORDERED: HYDROmorphone 2 MG/1 ML VIAL IV STA (09:30)
[2019-04-12] MEDS ORDERED: ONDANSETRON 4 MG/2 ML VIAL IV STA (09:30)
[2019-04-12] MEDS ORDERED: MEROPENEM 1,000 MG in SODIUM CHLORIDE 0.9% 100 ML IV STA (09:30)
[2019-04-12 10:09] LABS: Basophils % 0.3 % (0.0-0.8); Eosinophils % 0.3 % (0.00-10.9); Hematocrit 43.4 VOL% (42.0-52.0); Hemoglobin 15.1 GM/DL (14.0-18.0); Immature Granulocytes % 0.5 %; Immature Granulocytes Absolute 0.06 #; Lymphocytes # 2.3 10*3/uL (1.4-4.0); Lymphocytes % 18.9 % (21.2-54.2); Mean Corpuscular HGB Conc 34.8 GM/DL (32-36); Mean Corpuscular Volume 86.8 FL (87-102); Mean Platelet Volume 10.2 FL (9.6-12.0); Monocytes % 6.4 % (1.7-12.7); Neutrophils % 73.6 % (38.7-73.9); Platelet Count 271 T/CUMM (130-400); Red Cell Distribution Width 12.8 % (9.3-17.3); White Blood Count 11.9 T/CUMM (4-12)
[2019-04-12] MEDS ORDERED: MEROPENEM 500 MG VIAL ONE (10:15)
[2019-04-12 10:30] LABS: Albumin 3.8 G/DL (3.4-5.0); Bilirubin,Total 0.9 MG/DL (0.2-1.0); Calcium 9.1 MG/DL (8.5-10.1); Total Protein 7.4 G/DL (6.4-8.3)
[2019-04-12 10:35] LABS: Apearance,Urine CLEAR (Clear); Bilirubin,Urine Negative (Negative); Blood, Urine Negative (Negative); Glucose,Urine (UA) >=500 mg/dL (Negative); Ketones,Urine 5 mg/dL (Negative); Mucus,Urine Occasional /LPF (Occasional); Nitrite,Urine Negative (Negative); Protein,Urine Negative; RBC,Urine 5 /HPF (0-4); Sperm,Urine Few /HPF (Negative); Urine Color Yellow (Yellow); Urine Specific Gravity 1.018 (1.001-1.035); Urine Urobilinogen < 2.0 EU/DL (0.2-1.0); WBC,Urine <1 /HPF (0-6)
[2019-04-12] MEDS ORDERED: DEXTROSE 10% 250 ML BAG IV PRN (11:31)
[2019-04-12] MEDS ORDERED: HYDROmorphone 2 MG/1 ML VIAL IV PRN (11:31)
[2019-04-12] MEDS ORDERED: GLUCAGON 1 MG VIAL IM PRN (11:31)
[2019-04-12] MEDS ORDERED: ACETAMINOPHEN 325 MG TABLET PO PRN (11:31)
[2019-04-12] MEDS ORDERED: ONDANSETRON 4 MG/2 ML VIAL IV PRN ×2 (11:31→16:56)
[2019-04-12] MEDS: INSULIN LISPRO 100 UNIT/ML SUBCUT SCH ×2 (12:16→18:08)
[2019-04-12] MEDS: SODIUM CHLORIDE 0.9% 1,000 ML IV SCH ×3 (12:18→19:00)
[2019-04-12] MEDS ORDERED: hydrALAZINE 20 MG/1 ML VIAL IV PRN (13:31)
[2019-04-12] MEDS ORDERED: traMADol 50 MG TABLET PO PRN (13:31)
[2019-04-12] MEDS ORDERED: ALBUTEROL/IPRATROPIUM 3 ML NEB RESP TX PRN (13:31)
[2019-04-12] MEDS ORDERED: KETOROLAC 15 MG/1 ML VIAL IV PRN (14:50)
[2019-04-12] MEDS: HYDROmorphone 2 MG/1 ML VIAL IV SCH ×2 (15:03→17:27)
[2019-04-12 15:11] LABS: Barbiturates Screen,Urine Negative (Negative); Benzodiazepines Screen,Urine Negative (Negative); Cannabinoid Screen,Urine Positive (Negative); Opiate Screen,Urine Negative (Negative); Phencyclidine Screen,Urine Negative (Negative)
[2019-04-12] MEDS ORDERED: LIDOCAINE 1% 20 ML VIAL ONE (15:35)
[2019-04-12] MEDS ORDERED: PROMETHAZINE INJ 25 MG in SODIUM CHLORIDE 0.9% 50 ML IV PRN (16:56)
[2019-04-12] MEDS ORDERED: diphenhydrAMINE 50 MG/1 ML VIAL IV PRN (16:56)
[2019-04-12] MEDS ORDERED: MIDAZOLAM 2 MG/2 ML VIAL ONE (17:32)
[2019-04-12] MEDS ORDERED: LIDOCAINE 2% 5 ML VIAL ONE (17:32)
[2019-04-12] MEDS ORDERED: fentaNYL 100 MCG/2 ML VIAL ONE (17:32)
[2019-04-12] MEDS ORDERED: PHENYLEPHRINE 1 MG/10 ML SYRINGE IV ONE (17:32)
[2019-04-12] MEDS ORDERED: ONDANSETRON 4 MG/2 ML VIAL ONE (17:32)
[2019-04-12] MEDS ORDERED: propofoL 200 MG/20 ML VIAL IV ONE (17:32)
[2019-04-12] MEDS ORDERED: SEVOFLURANE 1 UNIT/15 MINUTE INH ONE (17:32)
[2019-04-12] MEDS: MEROPENEM 500 MG in SODIUM CHLORIDE 0.9% 100 ML IV SCH ×2 (18:16→22:59)
[2019-04-12] MEDS: INSULIN ASPART PROTAMINE/ASPART 70/30 100 UNIT/ML SUBCUT SCH (18:16)
[2019-04-12] MEDS: VANCOMYCIN INJ 1,000 MG in SODIUM CHLORIDE 0.9% 250 ML IV SCH (19:11)
[2019-04-12] MEDS: MEPERIDINE 25 MG/1 ML VIAL IV PRN ×2 (20:32→22:55)
[2019-04-12] MEDS: HALOPERIDOL 5 MG TABLET PO SCH (20:35)
[2019-04-12] MEDS: DOCUSATE SODIUM 100 MG CAPSULE PO SCH (20:36)
[2019-04-12] MEDS ORDERED: ENOXAPARIN 40 MG/0.4 ML SYRINGE SUBCUT SCH (21:00)
[2019-04-12] MEDS: INSULIN GLARGINE 100 UNIT/ML SUBCUT SCH (21:20)
[2019-04-13] MEDS: INSULIN LISPRO 100 UNIT/ML SUBCUT SCH ×4 (00:21→17:48)
[2019-04-13] MEDS: SODIUM CHLORIDE 0.9% 1,000 ML IV SCH (05:19)
[2019-04-13] MEDS: MEROPENEM 500 MG in SODIUM CHLORIDE 0.9% 100 ML IV SCH ×4 (05:20→23:50)
[2019-04-13] MEDS: HYDROmorphone 2 MG/1 ML VIAL IV PRN ×5 (05:21→21:12)
[2019-04-13 05:39] LABS: Basophils % 0.4 % (0.0-0.8); Eosinophils # 0.1 10*3/uL (0.0-0.87); Eosinophils % 1.3 % (0.00-10.9); Hematocrit 37.6 VOL% (42.0-52.0); Hemoglobin 12.7 GM/DL (14.0-18.0); Immature Granulocytes % 0.5 %; Immature Granulocytes Absolute 0.05 #; Lymphocytes # 3.5 10*3/uL (1.4-4.0); Lymphocytes % 37.4 % (21.2-54.2); Mean Corpuscular HGB Conc 33.8 GM/DL (32-36); Mean Corpuscular Volume 88.5 FL (87-102); Mean Platelet Volume 10.5 FL (9.6-12.0); Monocytes % 6.8 % (1.7-12.7); Neutrophils % 53.6 % (38.7-73.9); Platelet Count 223 T/CUMM (130-400); Red Blood Count 4.25 MC/CUMM (3.8-5.5); Red Cell Distribution Width 12.9 % (9.3-17.3); White Blood Count 9.4 T/CUMM (4-12)
[2019-04-13 06:06] LABS: Calcium 7.8 MG/DL (8.5-10.1)
[2019-04-13 06:16] LABS: Calcium 8.1 MG/DL (8.5-10.1); Osmolality,Calculated 283.3 MOS/KG (273-304)
[2019-04-13] MEDS: VANCOMYCIN INJ 1,000 MG in SODIUM CHLORIDE 0.9% 250 ML IV SCH ×2 (06:22→17:57)
[2019-04-13] MEDS ORDERED: GLUCAGON 1 MG VIAL IM PRN (07:41)
[2019-04-13] MEDS ORDERED: DEXTROSE 10% 25 GM/250 ML BAG IV PRN (07:41)
[2019-04-13] MEDS: PANTOPRAZOLE 40 MG TABLET PO SCH (08:44)
[2019-04-13] MEDS: HALOPERIDOL 5 MG TABLET PO SCH ×2 (08:44→21:16)
[2019-04-13] MEDS: DOCUSATE SODIUM 100 MG CAPSULE PO SCH ×2 (08:44→21:14)
[2019-04-13] MEDS: INSULIN ASPART PROTAMINE/ASPART 70/30 100 UNIT/ML SUBCUT SCH ×3 (08:45→17:48)
[2019-04-13] MEDS: INSULIN GLARGINE 100 UNIT/ML SUBCUT SCH (21:15)
[2019-04-14] MEDS: INSULIN LISPRO 100 UNIT/ML SUBCUT SCH ×2 (01:54→06:17)
[2019-04-14] MEDS: HYDROmorphone 2 MG/1 ML VIAL IV PRN ×3 (03:57→13:36)
[2019-04-14] MEDS: MEROPENEM 500 MG in SODIUM CHLORIDE 0.9% 100 ML IV SCH ×2 (04:31→10:08)
[2019-04-14 04:53] LABS: Basophils % 0.4 % (0.0-0.8); Eosinophils # 0.1 10*3/uL (0.0-0.87); Eosinophils % 0.8 % (0.00-10.9); Hematocrit 36.8 VOL% (42.0-52.0); Hemoglobin 12.5 GM/DL (14.0-18.0); Immature Granulocytes % 0.4 %; Immature Granulocytes Absolute 0.05 #; Lymphocytes # 3.3 10*3/uL (1.4-4.0); Lymphocytes % 29.6 % (21.2-54.2); Mean Corpuscular Volume 88.2 FL (87-102); Mean Platelet Volume 10.4 FL (9.6-12.0); Neutrophils % 62.8 % (38.7-73.9); Platelet Count 227 T/CUMM (130-400); Red Blood Count 4.17 MC/CUMM (3.8-5.5); Red Cell Distribution Width 12.7 % (9.3-17.3); White Blood Count 11.3 T/CUMM (4-12)
[2019-04-14 05:27] LABS: Calcium 8.2 MG/DL (8.5-10.1); Osmolality,Calculated 279.4 MOS/KG (273-304)
[2019-04-14] MEDS: VANCOMYCIN INJ 1,000 MG in SODIUM CHLORIDE 0.9% 250 ML IV SCH (06:18)
[2019-04-14] MEDS: PANTOPRAZOLE 40 MG TABLET PO SCH (10:07)
[2019-04-14] MEDS: HALOPERIDOL 5 MG TABLET PO SCH (10:07)
[2019-04-14] MEDS: DOCUSATE SODIUM 100 MG CAPSULE PO SCH (10:07)
[2019-04-14] MEDS ORDERED: INSULIN LISPRO 100 UNIT/ML SUBCUT SCH (11:30)
[2019-04-14 11:58] VITALS: BP 108/58
[2019-04-14] MEDS: INSULIN ASPART PROTAMINE/ASPART 70/30 100 UNIT/ML SUBCUT SCH ×2 (13:41→13:43)
== END 2019-04-14 15:21 | disposition home or self-care (01) | DRG 197 ==
LOC: N.ED 09:08 → N.EDINP 10:39 → N.2E 11:23
PROVIDERS: ADMIT Family Medicine; ATTEND Family Medicine

== ENCOUNTER 2019-04-17 13:33 | Inpatient (IN) ==
[2019-04-17] MEDS ORDERED: ONDANSETRON 4 MG/2 ML VIAL IV STA (14:10)
[2019-04-17] MEDS ORDERED: HYDROmorphone 2 MG/1 ML VIAL IV STA (14:10)
[2019-04-17] MEDS ORDERED: VANCOMYCIN INJ 1,250 MG in SODIUM CHLORIDE 0.9% 250 ML IV STA (14:10)
[2019-04-17 14:17] LABS: Basophils # 0.1 10*3/uL (0.0-0.2); Basophils % 0.4 % (0.0-0.8); Eosinophils % 0.3 % (0.00-10.9); Hematocrit 38.1 VOL% (42.0-52.0); Hemoglobin 13.3 GM/DL (14.0-18.0); Immature Granulocytes % 0.4 %; Immature Granulocytes Absolute 0.05 #; Lymphocytes # 2.2 10*3/uL (1.4-4.0); Mean Corpuscular HGB Conc 34.9 GM/DL (32-36); Mean Corpuscular Volume 86.4 FL (87-102); Mean Platelet Volume 10.3 FL (9.6-12.0); Neutrophils % 75.9 % (38.7-73.9); Platelet Count 289 T/CUMM (130-400); Red Blood Count 4.41 MC/CUMM (3.8-5.5); Red Cell Distribution Width 12.4 % (9.3-17.3)
[2019-04-17 14:31] LABS: Albumin 3.4 G/DL (3.4-5.0); Bilirubin,Total 0.4 MG/DL (0.2-1.0); Calcium 8.8 MG/DL (8.5-10.1); Osmolality,Calculated 275.4 MOS/KG (273-304); Total Protein 6.9 G/DL (6.4-8.3)
[2019-04-17] MEDS ORDERED: ONDANSETRON 4 MG/2 ML VIAL IV PRN (14:47)
[2019-04-17] MEDS ORDERED: GLUCAGON 1 MG VIAL IM PRN (14:47)
[2019-04-17] MEDS ORDERED: DEXTROSE 10% 250 ML BAG IV PRN ×2 (14:47→16:41)
[2019-04-17] MEDS ORDERED: ACETAMINOPHEN 325 MG TABLET PO PRN (14:47)
[2019-04-17] MEDS ORDERED: MAGNESIUM SULF RIDER 2 GM in PREMIX 1 EACH IV PRN (16:41)
[2019-04-17] MEDS ORDERED: MAGNESIUM SULF RIDER 4 GM in PREMIX 1 EACH IV PRN (16:41)
[2019-04-17] MEDS ORDERED: hydrALAZINE 20 MG/1 ML VIAL IV PRN (16:43)
[2019-04-17] MEDS: HYDROmorphone 2 MG/1 ML VIAL IV PRN ×2 (18:02→21:25)
[2019-04-17] MEDS: SODIUM CHLORIDE 0.9% 1,000 ML IV SCH ×2 (18:03→23:30)
[2019-04-17] MEDS: PIPERACILLIN/TAZOBACTAM 3,375 MG in SODIUM CHLORIDE 0.9% 100 ML IV SCH (18:03)
[2019-04-17] MEDS ORDERED: INSULIN GLARGINE 100 UNIT/ML SUBCUT SCH (21:00)
[2019-04-17] MEDS ORDERED: INSULIN ASPART PROTAMINE/ASPART 70/30 100 UNIT/ML SUBCUT SCH (21:00)
[2019-04-17] MEDS: INSULIN LISPRO 100 UNIT/ML SUBCUT SCH (21:04)
[2019-04-17] MEDS: HALOPERIDOL 5 MG TABLET PO SCH (21:25)
[2019-04-17] MEDS: DOCUSATE SODIUM 100 MG CAPSULE PO SCH (21:26)
[2019-04-18] MEDS: HYDROmorphone 2 MG/1 ML VIAL IV PRN ×5 (01:19→20:45)
[2019-04-18] MEDS: VANCOMYCIN INJ 1,000 MG in SODIUM CHLORIDE 0.9% 250 ML IV SCH ×2 (01:19→15:13)
[2019-04-18] MEDS: PIPERACILLIN/TAZOBACTAM 3,375 MG in SODIUM CHLORIDE 0.9% 100 ML IV SCH ×3 (02:21→17:08)
[2019-04-18 04:55] LABS: Basophils % 0.3 % (0.0-0.8); Eosinophils # 0.1 10*3/uL (0.0-0.87); Immature Granulocytes % 0.3 %; Immature Granulocytes Absolute 0.04 #; Lymphocytes # 3.9 10*3/uL (1.4-4.0); Lymphocytes % 34.3 % (21.2-54.2); Mean Corpuscular HGB Conc 35.1 GM/DL (32-36); Mean Corpuscular Volume 86.4 FL (87-102); Mean Platelet Volume 10.5 FL (9.6-12.0); Monocytes % 7.6 % (1.7-12.7); Neutrophils % 56.5 % (38.7-73.9); Platelet Count 277 T/CUMM (130-400); Red Blood Count 4.28 MC/CUMM (3.8-5.5); Red Cell Distribution Width 12.5 % (9.3-17.3); White Blood Count 11.4 T/CUMM (4-12)
[2019-04-18 05:24] LABS: Calcium 8.8 MG/DL (8.5-10.1); Osmolality,Calculated 279.8 MOS/KG (273-304)
[2019-04-18] MEDS: INSULIN LISPRO 100 UNIT/ML SUBCUT SCH ×4 (07:33→20:44)
[2019-04-18] MEDS: POTASSIUM CHLORIDE RIDER 10 MEQ in PREMIX 1 EACH IV PRN ×4 (07:34→12:52)
[2019-04-18] MEDS: SODIUM CHLORIDE 0.9% 1,000 ML IV SCH ×2 (07:35→15:15)
[2019-04-18] MEDS ORDERED: INSULIN ASPART PROTAMINE/ASPART 70/30 100 UNIT/ML SUBCUT SCH ×2 (08:00→16:30)
[2019-04-18] MEDS: PANTOPRAZOLE 40 MG TABLET PO SCH (08:54)
[2019-04-18] MEDS: DOCUSATE SODIUM 100 MG CAPSULE PO SCH ×2 (08:54→20:44)
[2019-04-18] MEDS: HALOPERIDOL 5 MG TABLET PO SCH (08:56)
[2019-04-18] MEDS ORDERED: HALOPERIDOL 5 MG TABLET PO PRN (09:33)
[2019-04-18] MEDS: COLLAGENASE OINT 30 GM TUBE TOP SCH (15:15)
[2019-04-18] MEDS: MENTHOL/ZINC OXIDE OINT 71 GM JAR TOP SCH ×2 (15:15→20:45)
[2019-04-19] MEDS: POTASSIUM CHLORIDE RIDER 10 MEQ in PREMIX 1 EACH IV PRN ×2 (00:03→02:17)
[2019-04-19] MEDS: PIPERACILLIN/TAZOBACTAM 3,375 MG in SODIUM CHLORIDE 0.9% 100 ML IV SCH ×2 (01:45→08:27)
[2019-04-19] MEDS: HYDROmorphone 2 MG/1 ML VIAL IV PRN ×6 (01:45→23:44)
[2019-04-19] MEDS: VANCOMYCIN INJ 1,000 MG in SODIUM CHLORIDE 0.9% 250 ML IV SCH (04:25)
[2019-04-19] MEDS: SODIUM CHLORIDE 0.9% 1,000 ML IV SCH ×2 (04:32→21:22)
[2019-04-19 05:27] LABS: Basophils # 0.1 10*3/uL (0.0-0.2); Basophils % 0.4 % (0.0-0.8); Eosinophils # 0.2 10*3/uL (0.0-0.87); Eosinophils % 1.4 % (0.00-10.9); Hematocrit 38.1 VOL% (42.0-52.0); Hemoglobin 12.9 GM/DL (14.0-18.0); Immature Granulocytes % 0.7 %; Immature Granulocytes Absolute 0.08 #; Lymphocytes # 3.4 10*3/uL (1.4-4.0); Lymphocytes % 30.3 % (21.2-54.2); Mean Corpuscular HGB Conc 33.9 GM/DL (32-36); Mean Corpuscular Volume 88.4 FL (87-102); Mean Platelet Volume 10.3 FL (9.6-12.0); Monocytes % 6.3 % (1.7-12.7); Neutrophils % 60.9 % (38.7-73.9); Platelet Count 287 T/CUMM (130-400); Red Blood Count 4.31 MC/CUMM (3.8-5.5); Red Cell Distribution Width 12.7 % (9.3-17.3); White Blood Count 11.2 T/CUMM (4-12)
[2019-04-19 06:06] LABS: Calcium 8.8 MG/DL (8.5-10.1); Osmolality,Calculated 283.8 MOS/KG (273-304)
[2019-04-19 06:12] LABS: Hypochromasia 1+; Ovalocytes Slight; Platelet Estimate Adequate
[2019-04-19] MEDS ORDERED: INSULIN ASPART PROTAMINE/ASPART 70/30 100 UNIT/ML SUBCUT SCH ×2 (08:00→16:30)
[2019-04-19] MEDS: PANTOPRAZOLE 40 MG TABLET PO SCH (08:27)
[2019-04-19] MEDS: DOCUSATE SODIUM 100 MG CAPSULE PO SCH ×2 (08:28→20:23)
[2019-04-19] MEDS: INSULIN LISPRO 100 UNIT/ML SUBCUT SCH ×4 (10:12→20:17)
[2019-04-19] MEDS: MENTHOL/ZINC OXIDE OINT 71 GM JAR TOP SCH ×2 (10:12→20:17)
[2019-04-19] MEDS: COLLAGENASE OINT 30 GM TUBE TOP SCH (10:51)
[2019-04-19] MEDS: SULFAMETHOX/TRIMETHOPRIM 800-160 MG TABLET PO SCH (18:11)
[2019-04-19] MEDS: AMOXICILLIN/CLAV 500 MG TABLET PO SCH (18:11)
[2019-04-20] MEDS: HYDROmorphone 2 MG/1 ML VIAL IV PRN ×3 (03:03→11:02)
[2019-04-20 05:19] VITALS: BP 115/65
[2019-04-20 05:34] LABS: Basophils # 0.1 10*3/uL (0.0-0.2); Basophils % 0.6 % (0.0-0.8); Eosinophils # 0.1 10*3/uL (0.0-0.87); Eosinophils % 1.2 % (0.00-10.9); Hematocrit 42.5 VOL% (42.0-52.0); Hemoglobin 14.1 GM/DL (14.0-18.0); Immature Granulocytes % 1.2 %; Immature Granulocytes Absolute 0.13 #; Lymphocytes # 3.3 10*3/uL (1.4-4.0); Lymphocytes % 29.5 % (21.2-54.2); Mean Corpuscular HGB Conc 33.2 GM/DL (32-36); Mean Corpuscular Volume 89.9 FL (87-102); Mean Platelet Volume 10.3 FL (9.6-12.0); Monocytes % 6.8 % (1.7-12.7); Neutrophils % 60.7 % (38.7-73.9); Platelet Count 333 T/CUMM (130-400); Red Blood Count 4.73 MC/CUMM (3.8-5.5); Red Cell Distribution Width 12.6 % (9.3-17.3); White Blood Count 11.1 T/CUMM (4-12)
[2019-04-20 05:49] LABS: Calcium 9.6 MG/DL (8.5-10.1); Osmolality,Calculated 275.1 MOS/KG (273-304)
[2019-04-20] MEDS ORDERED: INSULIN ASPART PROTAMINE/ASPART 70/30 100 UNIT/ML SUBCUT SCH (08:00)
[2019-04-20] MEDS: INSULIN LISPRO 100 UNIT/ML SUBCUT SCH ×2 (08:46→12:44)
[2019-04-20] MEDS: AMOXICILLIN/CLAV 500 MG TABLET PO SCH (08:47)
[2019-04-20] MEDS: SULFAMETHOX/TRIMETHOPRIM 800-160 MG TABLET PO SCH (08:48)
[2019-04-20] MEDS: MENTHOL/ZINC OXIDE OINT 71 GM JAR TOP SCH (08:50)
[2019-04-20] MEDS: COLLAGENASE OINT 30 GM TUBE TOP SCH (08:50)
[2019-04-20] MEDS: DOCUSATE SODIUM 100 MG CAPSULE PO SCH (08:50)
[2019-04-20] MEDS: PANTOPRAZOLE 40 MG TABLET PO SCH (11:06)
== END 2019-04-20 12:42 | disposition home or self-care (01) | DRG 420 ==
LOC: N.ED 13:33 → N.EDINP 14:47 → N.5E 15:56
PROVIDERS: ADMIT Family Medicine; ATTEND Family Medicine

== ENCOUNTER 2020-12-25 12:20 | Inpatient (IN) ==
[2020-12-25] MEDS ORDERED: ONDANSETRON ODT 4 MG TABLET PO STA (12:58)
[2020-12-25 14:21] LABS: Basophils # 0.1 10*3/uL (0.0-0.2); Basophils % 0.4 % (0.0-0.8); Eosinophils # 0.1 10*3/uL (0.0-0.87); Eosinophils % 0.8 % (0.00-10.9); Hematocrit 35.4 VOL% (42.0-52.0); Immature Granulocytes % 0.5 %; Immature Granulocytes Absolute 0.06 #; Lymphocytes # 2.8 10*3/uL (1.4-4.0); Lymphocytes % 22.8 % (21.2-54.2); Mean Corpuscular HGB Conc 33.9 GM/DL (32-36); Mean Corpuscular Volume 88.1 FL (87-102); Mean Platelet Volume 10.5 FL (9.6-12.0); Monocytes % 6.5 % (1.7-12.7); Platelet Count 295 T/CUMM (130-400); Red Blood Count 4.02 MC/CUMM (3.8-5.5); Red Cell Distribution Width 12.3 % (9.3-17.3); White Blood Count 12.1 T/CUMM (4-12)
[2020-12-25 14:46] LABS: Alanine Aminotransferase 13 U/L (16-61); Albumin 3.2 G/DL (3.4-5.0); Alkaline Phosphatase 115 U/L (45-117); Aspartate Amino Transferase 5 U/L (0-37); Bilirubin,Total < 0.39 MG/DL (0.20-1.00); Blood Urea Nitrogen 9 MG/DL (7-18); Calcium 8.6 MG/DL (8.5-10.1); Carbon Dioxide 28 MMOL/L (21-32); Estimated Glom Filtration Rate 112 ML/MIN; Osmolality,Calculated 286.5 MOS/KG (273-304); Potassium 3.7 MMOL/L (3.5-5.1); Sodium 132 MMOL/L (136-145); Total Protein 6.7 G/DL (6.4-8.2)
[2020-12-25 14:49] LABS: Glucose 534 MG/DL (74-106)
[2020-12-25] MEDS ORDERED: SODIUM CHLORIDE 0.9% 2,350 ML IV ONE ×2 (14:50→15:23)
[2020-12-25] MEDS ORDERED: INSULIN REGULAR 100 UNIT/ML IV ONE (14:54)
[2020-12-25] MEDS ORDERED: ONDANSETRON 4 MG/2 ML VIAL IV PRN (15:18)
[2020-12-25] MEDS ORDERED: ALBUTEROL 2.5 MG/3 ML NEB RESP TX PRN (15:18)
[2020-12-25] MEDS ORDERED: GLUCAGON 1 MG VIAL IM PRN (15:18)
[2020-12-25] MEDS ORDERED: guaiFENesin/DM ER 600-30 MG TABLET PO PRN (15:18)
[2020-12-25] MEDS ORDERED: hydrALAZINE 20 MG/1 ML VIAL IV PRN (15:18)
[2020-12-25] MEDS ORDERED: DOCUSATE SODIUM 100 MG CAPSULE PO PRN (15:18)
[2020-12-25] MEDS ORDERED: DEXTROSE 50% 25 GM/50 ML VIAL IV PRN (15:18)
[2020-12-25] MEDS ORDERED: ACETAMINOPHEN 325 MG TABLET PO PRN (15:18)
[2020-12-25 15:57] LABS: Bilirubin,Urine Negative (Negative); Blood, Urine Negative (Negative); Glucose,Urine (UA) >=500 mg/dL (Negative); Ketones,Urine Negative (Negative); Nitrite,Urine Negative (Negative); Protein,Urine Negative; RBC,Urine <1 /HPF (0-4); Urine Appearance CLEAR (Clear); Urine Color Colorless (Yellow); Urine Urobilinogen < 2.0 EU/DL (0.2-1.0)
[2020-12-25] MEDS: PIPERACILLIN/TAZOBACTAM 3,375 MG in SODIUM CHLORIDE 0.9% 100 ML IV SCH ×2 (19:02→22:34)
[2020-12-25] MEDS: VANCOMYCIN INJ 1,250 MG in SODIUM CHLORIDE 0.9% 250 ML IV SCH (19:02)
[2020-12-25] MEDS: SODIUM CHLORIDE 0.9% 1,000 ML IV SCH (19:03)
[2020-12-25] MEDS: INSULIN REGULAR 100 UNIT/ML SUBCUT SCH ×2 (19:03→21:30)
[2020-12-25] MEDS: MORPHINE 2 MG/1 ML SYRINGE IV PRN (21:29)
[2020-12-26] MEDS: MORPHINE 2 MG/1 ML SYRINGE IV PRN ×4 (02:35→23:31)
[2020-12-26] MEDS: VANCOMYCIN INJ 1,250 MG in SODIUM CHLORIDE 0.9% 250 ML IV SCH ×2 (04:35→15:04)
[2020-12-26 05:37] LABS: Basophils # 0.1 10*3/uL (0.0-0.2); Basophils % 0.6 % (0.0-0.8); Eosinophils # 0.2 10*3/uL (0.0-0.87); Eosinophils % 1.6 % (0.00-10.9); Hematocrit 33.6 VOL% (42.0-52.0); Hemoglobin 11.4 GM/DL (14.0-18.0); Immature Granulocytes % 0.6 %; Immature Granulocytes Absolute 0.06 #; Lymphocytes # 3.9 10*3/uL (1.4-4.0); Lymphocytes % 36.5 % (21.2-54.2); Mean Corpuscular HGB Conc 33.9 GM/DL (32-36); Mean Corpuscular Volume 87.7 FL (87-102); Mean Platelet Volume 10.4 FL (9.6-12.0); Monocytes % 6.8 % (1.7-12.7); Neutrophils % 53.9 % (38.7-73.9); Platelet Count 296 T/CUMM (130-400); Red Blood Count 3.83 MC/CUMM (3.8-5.5); Red Cell Distribution Width 12.2 % (9.3-17.3); White Blood Count 10.7 T/CUMM (4-12)
[2020-12-26 05:53] LABS: Calcium 8.2 MG/DL (8.5-10.1); Osmolality,Calculated 285.4 MOS/KG (273-304); Potassium 3.7 MMOL/L (3.5-5.1)
[2020-12-26 06:19] LABS: Risk Ratio 3.88; Thyroid Stimulating Hormone 2.85 uIU/ml (0.358-3.74)
[2020-12-26] MEDS: PIPERACILLIN/TAZOBACTAM 3,375 MG in SODIUM CHLORIDE 0.9% 100 ML IV SCH ×2 (06:45→17:54)
[2020-12-26] MEDS ORDERED: GLUCAGON 1 MG VIAL IM PRN (07:46)
[2020-12-26] MEDS ORDERED: DEXTROSE 50% 25 GM/50 ML VIAL IV PRN (07:46)
[2020-12-26] MEDS: PANTOPRAZOLE 40 MG TABLET PO SCH (09:25)
[2020-12-26] MEDS: INSULIN REGULAR 100 UNIT/ML SUBCUT SCH ×4 (09:26→23:26)
[2020-12-26] MEDS: INSULIN GLARGINE 100 UNIT/ML SUBCUT SCH (21:51)
[2020-12-27] MEDS: PIPERACILLIN/TAZOBACTAM 3,375 MG in SODIUM CHLORIDE 0.9% 100 ML IV SCH ×4 (01:10→22:39)
[2020-12-27] MEDS: VANCOMYCIN INJ 1,250 MG in SODIUM CHLORIDE 0.9% 250 ML IV SCH ×2 (04:11→17:10)
[2020-12-27 05:58] LABS: Basophils # 0.1 10*3/uL (0.0-0.2); Basophils % 0.6 % (0.0-0.8); Eosinophils # 0.2 10*3/uL (0.0-0.87); Hematocrit 34.6 VOL% (42.0-52.0); Hemoglobin 11.9 GM/DL (14.0-18.0); Immature Granulocytes % 0.6 %; Immature Granulocytes Absolute 0.06 #; Lymphocytes # 3.8 10*3/uL (1.4-4.0); Lymphocytes % 38.3 % (21.2-54.2); Mean Corpuscular HGB Conc 34.4 GM/DL (32-36); Mean Corpuscular Volume 88.5 FL (87-102); Mean Platelet Volume 10.5 FL (9.6-12.0); Monocytes % 6.5 % (1.7-12.7); Platelet Count 316 T/CUMM (130-400); Red Blood Count 3.91 MC/CUMM (3.8-5.5); Red Cell Distribution Width 12.4 % (9.3-17.3)
[2020-12-27 06:11] LABS: Calcium 8.2 MG/DL (8.5-10.1); Osmolality,Calculated 286.4 MOS/KG (273-304); Potassium 3.6 MMOL/L (3.5-5.1)
[2020-12-27] MEDS: INSULIN REGULAR 100 UNIT/ML SUBCUT SCH ×4 (09:09→22:39)
[2020-12-27] MEDS: SODIUM CHLORIDE 0.9% 1,000 ML IV SCH ×3 (09:13→22:38)
[2020-12-27] MEDS: PANTOPRAZOLE 40 MG TABLET PO SCH (09:35)
[2020-12-27 10:59] LABS: Basophils % 0.4 % (0.0-0.8); Eosinophils # 0.2 10*3/uL (0.0-0.87); Hematocrit 36.3 VOL% (42.0-52.0); Hemoglobin 12.3 GM/DL (14.0-18.0); Immature Granulocytes % 0.9 %; Immature Granulocytes Absolute 0.09 #; Lymphocytes # 3.4 10*3/uL (1.4-4.0); Lymphocytes % 32.9 % (21.2-54.2); Mean Corpuscular HGB Conc 33.9 GM/DL (32-36); Mean Corpuscular Volume 88.1 FL (87-102); Mean Platelet Volume 9.8 FL (9.6-12.0); Monocytes % 6.5 % (1.7-12.7); Neutrophils % 57.3 % (38.7-73.9); Platelet Count 302 T/CUMM (130-400); Red Blood Count 4.12 MC/CUMM (3.8-5.5); Red Cell Distribution Width 12.6 % (9.3-17.3); White Blood Count 10.2 T/CUMM (4-12)
[2020-12-27] MEDS: MORPHINE 2 MG/1 ML SYRINGE IV PRN ×3 (12:24→22:30)
[2020-12-27] MEDS: INSULIN GLARGINE 100 UNIT/ML SUBCUT SCH (22:39)
[2020-12-28] MEDS: VANCOMYCIN INJ 1,250 MG in SODIUM CHLORIDE 0.9% 250 ML IV SCH (02:42)
[2020-12-28] MEDS: MORPHINE 2 MG/1 ML SYRINGE IV PRN (05:15)
[2020-12-28 05:49] LABS: Calcium 8.2 MG/DL (8.5-10.1); Osmolality,Calculated 280.3 MOS/KG (273-304); Potassium 3.9 MMOL/L (3.5-5.1)
[2020-12-28] MEDS: PIPERACILLIN/TAZOBACTAM 3,375 MG in SODIUM CHLORIDE 0.9% 100 ML IV SCH (07:07)
[2020-12-28] MEDS: SODIUM CHLORIDE 0.9% 1,000 ML IV SCH (07:09)
[2020-12-28] MEDS: PANTOPRAZOLE 40 MG TABLET PO SCH (08:58)
[2020-12-28] MEDS ORDERED: LINACLOTIDE 145 MCG CAPSULE PO ONE (09:55)
[2020-12-28] MEDS: INSULIN REGULAR 100 UNIT/ML SUBCUT SCH ×2 (10:32→11:27)
[2020-12-28 11:11] VITALS: BP 109/66
== END 2020-12-28 15:09 | disposition home or self-care (01) | DRG 349 ==
LOC: SUATTDRO → N.ED 12:20 → N.EDINP 15:18 → N.5E 18:27
PROVIDERS: ADMIT Internal Medicine Geriatric Medicine; ATTEND Internal Medicine

== ENCOUNTER 2021-02-26 23:11 | Inpatient (IN) ==
[2021-02-27] MEDS ORDERED: PIPERACILLIN/TAZOBACTAM 3,375 MG in SODIUM CHLORIDE 0.9% 100 ML IV STA (03:56)
[2021-02-27] MEDS ORDERED: SODIUM CHLORIDE 0.9% 1,000 ML IV STA ×2 (03:56→05:27)
[2021-02-27] MEDS ORDERED: PANTOPRAZOLE 40 MG VIAL IV STA (03:56)
[2021-02-27] MEDS ORDERED: ONDANSETRON 4 MG/2 ML VIAL IV STA (03:56)
[2021-02-27] MEDS ORDERED: HYDROmorphone 2 MG/1 ML VIAL IV ONE (04:03)
[2021-02-27 04:10] LABS: Basophils # 0.1 10*3/uL (0.0-0.2); Basophils % 0.4 % (0.0-0.8); Eosinophils # 0.1 10*3/uL (0.0-0.87); Eosinophils % 0.3 % (0.00-10.9); Hematocrit 42.6 VOL% (42.0-52.0); Hemoglobin 14.6 GM/DL (14.0-18.0); Immature Granulocytes % 0.6 %; Lymphocytes % 17.5 % (21.2-54.2); Mean Corpuscular HGB Conc 34.3 GM/DL (32-36); Mean Corpuscular Volume 86.8 FL (87-102); Mean Platelet Volume 10.5 FL (9.6-12.0); Monocytes % 9.8 % (1.7-12.7); Neutrophils % 71.4 % (38.7-73.9); Platelet Count 325 T/CUMM (130-400); Red Blood Count 4.91 MC/CUMM (3.8-5.5); White Blood Count 17.1 T/CUMM (4-12)
[2021-02-27 04:33] LABS: Alanine Aminotransferase 13 U/L (16-61); Alkaline Phosphatase 109 U/L (45-117); Amylase 46 U/L (25-115); Aspartate Amino Transferase 12 U/L (0-37); Blood Urea Nitrogen 10 MG/DL (7-18); Calcium 9.3 MG/DL (8.5-10.1); Carbon Dioxide 25 MMOL/L (21-32); Estimated Glom Filtration Rate 81 ML/MIN; Glucose 480 MG/DL (74-106); Osmolality,Calculated 279.8 MOS/KG (273-304); Potassium 3.9 MMOL/L (3.5-5.1); Sodium 130 MMOL/L (136-145)
[2021-02-27] MEDS ORDERED: INSULIN REGULAR 100 UNIT/ML SUBCUT STA (04:58)
[2021-02-27] MEDS ORDERED: DIPH/TET/ACEL PERT BOOSTER VACCINE 0.5 ML VIAL IM ONE (04:59)
[2021-02-27] MEDS ORDERED: DEXTROSE 50% 25 GM/50 ML VIAL IV PRN (05:15)
[2021-02-27] MEDS ORDERED: GLUCAGON 1 MG VIAL IM PRN ×2 (05:15)
[2021-02-27] MEDS ORDERED: ACETAMINOPHEN 325 MG TABLET PO PRN (05:15)
[2021-02-27] MEDS ORDERED: ONDANSETRON 4 MG/2 ML VIAL IV PRN (05:15)
[2021-02-27] MEDS ORDERED: DEXTROSE 50% 25 GM/50 ML SYRINGE IV PRN (05:41)
[2021-02-27] MEDS ORDERED: VANCOMYCIN INJ 1,250 MG in SODIUM CHLORIDE 0.9% 250 ML IV SCH (06:00)
[2021-02-27 06:58] LABS: Bilirubin,Urine Negative (Negative); Blood, Urine Small mg/dL (Negative); Glucose,Urine (UA) >=500 mg/dL (Negative); Ketones,Urine Negative (Negative); Mucus,Urine Occasional /LPF (Occasional); Nitrite,Urine Negative (Negative); Protein,Urine Negative; RBC,Urine <1 /HPF (0-4); Urine Appearance CLEAR (Clear); Urine Color Straw (Yellow); Urine Specific Gravity 1.021 (1.001-1.035); Urine Urobilinogen < 2.0 EU/DL (<2.0)
[2021-02-27] MEDS: SODIUM CHLORIDE 0.9% 1,000 ML IV SCH ×2 (10:10→14:08)
[2021-02-27] MEDS: VANCOMYCIN INJ 1,000 MG in SODIUM CHLORIDE 0.9% 250 ML IV SCH ×3 (10:10→19:31)
[2021-02-27] MEDS: PIPERACILLIN/TAZOBACTAM 3,375 MG in SODIUM CHLORIDE 0.9% 100 ML IV SCH ×2 (14:12→19:31)
[2021-02-27] MEDS: INSULIN REGULAR 100 UNIT/ML SUBCUT SCH ×2 (16:09→16:10)
[2021-02-27] MEDS: ENOXAPARIN 40 MG/0.4 ML SYRINGE SUBCUT SCH (16:14)
[2021-02-28] MEDS: PIPERACILLIN/TAZOBACTAM 3,375 MG in SODIUM CHLORIDE 0.9% 100 ML IV SCH ×4 (01:20→15:37)
[2021-02-28] MEDS: SODIUM CHLORIDE 0.9% 1,000 ML IV SCH ×2 (01:53→23:21)
[2021-02-28] MEDS: VANCOMYCIN INJ 1,000 MG in SODIUM CHLORIDE 0.9% 250 ML IV SCH ×3 (05:14→17:33)
[2021-02-28 06:04] LABS: Basophils % 0.3 % (0.0-0.8); Eosinophils # 0.2 10*3/uL (0.0-0.87); Eosinophils % 1.4 % (0.00-10.9); Hematocrit 35.6 VOL% (42.0-52.0); Hemoglobin 12.2 GM/DL (14.0-18.0); Immature Granulocytes % 0.3 %; Immature Granulocytes Absolute 0.04 #; Lymphocytes # 3.5 10*3/uL (1.4-4.0); Lymphocytes % 28.9 % (21.2-54.2); Mean Corpuscular HGB Conc 34.3 GM/DL (32-36); Mean Corpuscular Volume 87.3 FL (87-102); Mean Platelet Volume 10.8 FL (9.6-12.0); Monocytes % 8.2 % (1.7-12.7); Neutrophils % 60.9 % (38.7-73.9); Platelet Count 237 T/CUMM (130-400); Red Blood Count 4.08 MC/CUMM (3.8-5.5); Red Cell Distribution Width 11.8 % (9.3-17.3); White Blood Count 12.2 T/CUMM (4-12)
[2021-02-28 06:20] LABS: Albumin 2.5 G/DL (3.4-5.0); Bilirubin,Total 0.4 MG/DL (0.20-1.00); Calcium 8.3 MG/DL (8.5-10.1); Osmolality,Calculated 281.8 MOS/KG (273-304); Total Protein 6.6 G/DL (6.4-8.2)
[2021-02-28 09:37] LABS: Atypical Lymphocytes Few; Lymphocytes 30 % (20-55); Platelet Estimate Normal; Polychromasia Slight; Segmented Neutrophils 57 % (50-85); Total Cells Counted 100
[2021-02-28] MEDS: INSULIN REGULAR 100 UNIT/ML SUBCUT SCH ×2 (09:56→17:28)
[2021-02-28] MEDS: PANTOPRAZOLE 40 MG TABLET PO SCH (10:47)
[2021-02-28] MEDS: ENOXAPARIN 40 MG/0.4 ML SYRINGE SUBCUT SCH (17:28)
[2021-02-28] MEDS ORDERED: INSULIN GLARGINE 100 UNIT/ML SUBCUT SCH (21:00)
[2021-03-01] MEDS: VANCOMYCIN INJ 1,000 MG in SODIUM CHLORIDE 0.9% 250 ML IV SCH ×3 (01:11→20:39)
[2021-03-01] MEDS: PIPERACILLIN/TAZOBACTAM 3,375 MG in SODIUM CHLORIDE 0.9% 100 ML IV SCH ×3 (02:22→16:36)
[2021-03-01] MEDS: SODIUM CHLORIDE 0.9% 1,000 ML IV SCH ×3 (02:25→22:30)
[2021-03-01] MEDS: INSULIN REGULAR 100 UNIT/ML SUBCUT SCH ×2 (08:12→16:36)
[2021-03-01] MEDS: PANTOPRAZOLE 40 MG TABLET PO SCH (08:16)
[2021-03-01] MEDS ORDERED: NICOTINE 21 MG/24 HR PATCH TRANSDERM SCH (09:00)
[2021-03-01 09:25] LABS: Basophils % 0.4 % (0.0-0.8); Eosinophils # 0.1 10*3/uL (0.0-0.87); Eosinophils % 1.6 % (0.00-10.9); Hematocrit 35.1 VOL% (42.0-52.0); Immature Granulocytes % 0.4 %; Immature Granulocytes Absolute 0.04 #; Lymphocytes # 2.7 10*3/uL (1.4-4.0); Lymphocytes % 30.5 % (21.2-54.2); Mean Corpuscular HGB Conc 34.2 GM/DL (32-36); Mean Corpuscular Volume 86.9 FL (87-102); Mean Platelet Volume 10.5 FL (9.6-12.0); Monocytes % 6.5 % (1.7-12.7); Neutrophils % 60.6 % (38.7-73.9); Platelet Count 274 T/CUMM (130-400); Red Blood Count 4.04 MC/CUMM (3.8-5.5); Red Cell Distribution Width 11.6 % (9.3-17.3); White Blood Count 8.9 T/CUMM (4-12)
[2021-03-01 09:53] LABS: Calcium 8.5 MG/DL (8.5-10.1); Potassium 3.8 MMOL/L (3.5-5.1)
[2021-03-01 11:00] LABS: Band Neutrophils 1 % (0-10); Eosinophils 3 % (0-10); Lymphocytes 37 % (20-55); Platelet Estimate Normal; Segmented Neutrophils 57 % (50-85); Total Cells Counted 100
[2021-03-01 11:01] LABS: Polychromasia Slight
[2021-03-01] MEDS: ENOXAPARIN 40 MG/0.4 ML SYRINGE SUBCUT SCH (16:37)
[2021-03-01] MEDS ORDERED: INSULIN GLARGINE 100 UNIT/ML SUBCUT SCH (21:00)
[2021-03-02] MEDS: PIPERACILLIN/TAZOBACTAM 3,375 MG in SODIUM CHLORIDE 0.9% 100 ML IV SCH (00:24)
[2021-03-02] MEDS: VANCOMYCIN INJ 1,000 MG in SODIUM CHLORIDE 0.9% 250 ML IV SCH (04:37)
[2021-03-02 05:40] LABS: Basophils % 0.3 % (0.0-0.8); Eosinophils # 0.2 10*3/uL (0.0-0.87); Eosinophils % 2.1 % (0.00-10.9); Hematocrit 32.3 VOL% (42.0-52.0); Immature Granulocytes % 0.4 %; Immature Granulocytes Absolute 0.04 #; Lymphocytes # 2.8 10*3/uL (1.4-4.0); Lymphocytes % 31.2 % (21.2-54.2); Mean Corpuscular HGB Conc 34.1 GM/DL (32-36); Mean Corpuscular Volume 86.6 FL (87-102); Mean Platelet Volume 10.1 FL (9.6-12.0); Monocytes % 7.6 % (1.7-12.7); Neutrophils % 58.4 % (38.7-73.9); Platelet Count 284 T/CUMM (130-400); Red Blood Count 3.73 MC/CUMM (3.8-5.5); Red Cell Distribution Width 11.6 % (9.3-17.3)
[2021-03-02 06:00] LABS: Calcium 8.2 MG/DL (8.5-10.1); Osmolality,Calculated 278.5 MOS/KG (273-304); Potassium 3.4 MMOL/L (3.5-5.1)
[2021-03-02] MEDS ORDERED: INSULIN GLARGINE 100 UNIT/ML SUBCUT SCH (09:25)
[2021-03-02] MEDS ORDERED: POTASSIUM CHLORIDE 20 MEQ TABLET PO ONE (11:34)
[2021-03-02 12:11] VITALS: BP 145/60
== END 2021-03-02 13:06 | disposition home health service (06) | DRG 380 ==
LOC: N.ED 23:11 → SUATTDRO 02-27 05:15 → N.EDINP 02-27 05:15 → N.3E 02-27 14:17
PROVIDERS: ADMIT Internal Medicine; ATTEND Internal Medicine

== ENCOUNTER 2021-06-03 09:18 | Inpatient (IN) ==
[2021-06-03] MEDS ORDERED: ONDANSETRON 4 MG/2 ML VIAL IV STA (09:48)
[2021-06-03] MEDS ORDERED: SODIUM CHLORIDE 0.9% 1,000 ML IV STA (09:48)
[2021-06-03] MEDS ORDERED: VANCOMYCIN INJ 1,000 MG in SODIUM CHLORIDE 0.9% 250 ML IV STA (09:50)
[2021-06-03] MEDS ORDERED: PIPERACILLIN/TAZOBACTAM 3,375 MG in SODIUM CHLORIDE 0.9% 100 ML IV STA (09:51)
[2021-06-03 10:14] LABS: Basophils % 0.2 % (0.0-0.8); Eosinophils % 0.2 % (0.00-10.9); Hematocrit 38.6 VOL% (42.0-52.0); Hemoglobin 13.4 GM/DL (14.0-18.0); Immature Granulocytes % 0.7 %; Immature Granulocytes Absolute 0.12 #; Lymphocytes # 2.3 10*3/uL (1.4-4.0); Lymphocytes % 13.7 % (21.2-54.2); Mean Corpuscular HGB Conc 34.7 GM/DL (32-36); Mean Corpuscular Volume 82.1 FL (87-102); Mean Platelet Volume 9.6 FL (9.6-12.0); Monocytes % 5.8 % (1.7-12.7); Neutrophils % 79.4 % (38.7-73.9); Platelet Count 538 T/CUMM (130-400); Red Cell Distribution Width 12.7 % (9.3-17.3); White Blood Count 16.6 T/CUMM (4-12)
[2021-06-03 10:24] LABS: Arterial Base Excess iSTAT 4 MMOL/L (-2.5-2.5); Arterial Bicarbonate iSTAT 25.4 MMOL/L (20-26); Arterial O2 Saturation iSTAT 98 % (95-100); Arterial PCO2 iSTAT 27 MM HG (35-48); Arterial PO2 iSTAT 88 MM HG (80-95); Arterial Total CO2 iSTAT 26 MMO/L (23-27); Arterial pH iSTAT 7.577 (7.35-7.45)
[2021-06-03 10:35] LABS: Albumin 2.9 G/DL (3.4-5.0); Bilirubin,Total 0.5 MG/DL (0.20-1.00); Calcium 10.6 MG/DL (8.5-10.1); Osmolality,Calculated 280.9 MOS/KG (273-304); Potassium 4.5 MMOL/L (3.5-5.1); Total Protein 9.8 G/DL (6.4-8.2)
[2021-06-03] MEDS ORDERED: SODIUM CHLORIDE 0.9% 2,450 ML IV ONE (10:36)
[2021-06-03 10:54] LABS: Mucus,Urine Occasional /LPF (Occasional); Protein,Urine Negative (Negative); RBC,Urine 1 /HPF (0-4); Urine Appearance Clear (Clear); Urine Color Straw (Yellow); Urine Specific Gravity < 1.005 (1.001-1.035)
[2021-06-03 10:55] LABS: Bilirubin,Urine Negative (Negative); Blood, Urine Trace mg/dL (Negative); Glucose,Urine (UA) >1000 mg/dL (Negative); Ketones,Urine 40 mg/dL (Negative); Nitrite,Urine Negative (Negative); Urine Urobilinogen 0.2 eU/dL (<2.0)
[2021-06-03] MEDS ORDERED: GLUCAGON 1 MG VIAL IM PRN (11:46)
[2021-06-03] MEDS ORDERED: INSULIN REGULAR 100 UNIT/ML IV STA (11:49)
[2021-06-03] MEDS ORDERED: HYDROmorphone 1 MG/1 ML SYRINGE IV STA (11:49)
[2021-06-03] MEDS ORDERED: hydrALAZINE 20 MG/1 ML VIAL IV PRN (11:50)
[2021-06-03] MEDS ORDERED: NICOTINE 21 MG/24 HR PATCH TRANSDERM PRN (11:50)
[2021-06-03] MEDS ORDERED: DEXTROSE 10% 250 ML BAG IV PRN (11:54)
[2021-06-03] MEDS ORDERED: ENOXAPARIN 40 MG/0.4 ML SYRINGE SUBCUT SCH (12:30)
[2021-06-03] MEDS ORDERED: LIDOCAINE 1% 50 ML VIAL ONE (14:29)
[2021-06-03] MEDS: SODIUM CHLORIDE 0.9% 1,000 ML IV SCH (14:30)
[2021-06-03] MEDS ORDERED: MIDAZOLAM 2 MG/2 ML VIAL ONE (14:50)
[2021-06-03] MEDS ORDERED: fentaNYL 100 MCG/2 ML VIAL ONE (14:50)
[2021-06-03] MEDS ORDERED: LIDOCAINE 2% 5 ML VIAL ONE (15:00)
[2021-06-03] MEDS ORDERED: SUCCINYLCHOLINE 200 MG/10 ML VIAL ONE (15:00)
[2021-06-03] MEDS ORDERED: propofoL 200 MG/20 ML VIAL IV ONE ×2 (15:00→15:29)
[2021-06-03] MEDS ORDERED: SEVOFLURANE 1 UNIT/15 MINUTE INH ONE (15:00)
[2021-06-03] MEDS ORDERED: ONDANSETRON 4 MG/2 ML VIAL ONE (15:16)
[2021-06-03] MEDS ORDERED: PHENYLEPHRINE 1 MG/10 ML SYRINGE IV ONE (15:28)
[2021-06-03] MEDS ORDERED: HYDROmorphone 1 MG/1 ML SYRINGE IV PRN (16:06)
[2021-06-03] MEDS: INSULIN GLARGINE 100 UNIT/ML SUBCUT SCH (16:41)
[2021-06-03] MEDS: PIPERACILLIN/TAZOBACTAM 3,375 MG in SODIUM CHLORIDE 0.9% 100 ML IV SCH ×2 (16:42→20:01)
[2021-06-03] MEDS: INSULIN LISPRO 100 UNIT/ML SUBCUT SCH ×2 (17:25→21:45)
[2021-06-03 17:53] LABS: Calcium 8.7 MG/DL (8.5-10.1); Osmolality,Calculated 288.5 MOS/KG (273-304); Potassium 4.1 MMOL/L (3.5-5.1)
[2021-06-03] MEDS: HYDROmorphone 1 MG/1 ML SYRINGE IV PRN (19:58)
[2021-06-04] MEDS: VANCOMYCIN INJ 1,250 MG in SODIUM CHLORIDE 0.9% 250 ML IV SCH ×2 (00:07→12:04)
[2021-06-04] MEDS: HYDROmorphone 1 MG/1 ML SYRINGE IV PRN ×5 (03:39→21:42)
[2021-06-04] MEDS: PIPERACILLIN/TAZOBACTAM 3,375 MG in SODIUM CHLORIDE 0.9% 100 ML IV SCH ×3 (05:22→21:09)
[2021-06-04 05:28] LABS: Basophils % 0.3 % (0.0-0.8); Eosinophils # 0.2 10*3/uL (0.0-0.87); Eosinophils % 1.2 % (0.00-10.9); Hematocrit 29.8 VOL% (42.0-52.0); Hemoglobin 9.8 GM/DL (14.0-18.0); Immature Granulocytes % 0.8 %; Lymphocytes # 2.9 10*3/uL (1.4-4.0); Lymphocytes % 22.4 % (21.2-54.2); Mean Corpuscular HGB Conc 32.9 GM/DL (32-36); Mean Corpuscular Volume 84.9 FL (87-102); Mean Platelet Volume 9.6 FL (9.6-12.0); Monocytes % 7.5 % (1.7-12.7); Neutrophils % 67.8 % (38.7-73.9); Platelet Count 368 T/CUMM (130-400); Red Blood Count 3.51 MC/CUMM (3.8-5.5); Red Cell Distribution Width 12.8 % (9.3-17.3); White Blood Count 12.9 T/CUMM (4-12)
[2021-06-04 05:50] LABS: Alanine Aminotransferase < 9 U/L (16-61); Albumin 1.8 G/DL (3.4-5.0); Alkaline Phosphatase 92 U/L (45-117); Aspartate Amino Transferase 4 U/L (0-37); Blood Urea Nitrogen 6 MG/DL (7-18); Calcium 8.1 MG/DL (8.5-10.1); Carbon Dioxide 26 MMOL/L (21-32); Estimated Glom Filtration Rate 151 ML/MIN; Glucose 301 MG/DL (74-106); Potassium 3.7 MMOL/L (3.5-5.1); Sodium 136 MMOL/L (136-145); Total Protein 6.8 G/DL (6.4-8.2)
[2021-06-04 06:03] LABS: Band Neutrophils 3 % (0-10); Eosinophils 2 % (0-10); Lymphocytes 18 % (20-55); Segmented Neutrophils 70 % (50-85); Total Cells Counted 100
[2021-06-04 06:04] LABS: Hypochromia 1+; Microcytosis 1+
[2021-06-04] MEDS: INSULIN GLARGINE 100 UNIT/ML SUBCUT SCH (09:01)
[2021-06-04] MEDS: INSULIN LISPRO 100 UNIT/ML SUBCUT SCH ×4 (09:10→21:08)
[2021-06-04] MEDS: ONDANSETRON 4 MG/2 ML VIAL IV PRN (12:40)
[2021-06-04] MEDS: SODIUM CHLORIDE 0.9% 1,000 ML IV SCH ×2 (13:54→22:16)
[2021-06-04] MEDS: SODIUM HYPOCHLORITE 0.25% IRRIG 473 ML BOTTLE TOP SCH (13:55)
[2021-06-05] MEDS: VANCOMYCIN INJ 1,250 MG in SODIUM CHLORIDE 0.9% 250 ML IV SCH ×2 (00:11→12:16)
[2021-06-05] MEDS: HYDROmorphone 1 MG/1 ML SYRINGE IV PRN ×6 (02:17→21:25)
[2021-06-05] MEDS: PIPERACILLIN/TAZOBACTAM 3,375 MG in SODIUM CHLORIDE 0.9% 100 ML IV SCH ×3 (05:02→21:34)
[2021-06-05] MEDS: INSULIN LISPRO 100 UNIT/ML SUBCUT SCH ×5 (08:46→21:22)
[2021-06-05] MEDS: SODIUM HYPOCHLORITE 0.25% IRRIG 473 ML BOTTLE TOP SCH (08:47)
[2021-06-05] MEDS: INSULIN GLARGINE 100 UNIT/ML SUBCUT SCH (08:47)
[2021-06-05] MEDS ORDERED: fentaNYL 100 MCG/2 ML VIAL ONE (08:49)
[2021-06-05] MEDS ORDERED: LIDOCAINE 2% 5 ML VIAL ONE (08:49)
[2021-06-05] MEDS ORDERED: propofoL 200 MG/20 ML VIAL IV ONE (08:49)
[2021-06-05] MEDS ORDERED: MIDAZOLAM 2 MG/2 ML VIAL ONE (08:50)
[2021-06-05] MEDS ORDERED: BUPIVACAINE MPF 0.25% 30 ML VIAL ONE (08:53)
[2021-06-05] MEDS ORDERED: LIDOCAINE 1%/EPI INJ 20 ML VIAL ONE (08:54)
[2021-06-05] MEDS ORDERED: LIDOCAINE 1% 50 ML VIAL ONE (08:54)
[2021-06-05] MEDS ORDERED: ONDANSETRON 4 MG/2 ML VIAL ONE (09:07)
[2021-06-05] MEDS ORDERED: FAMOTIDINE 20 MG/2 ML VIAL IV ONE (09:07)
[2021-06-05 09:49] LABS: Basophils % 0.2 % (0.0-0.8); Eosinophils # 0.1 10*3/uL (0.0-0.87); Eosinophils % 0.9 % (0.00-10.9); Hematocrit 32.8 VOL% (42.0-52.0); Hemoglobin 10.7 GM/DL (14.0-18.0); Immature Granulocytes % 0.7 %; Immature Granulocytes Absolute 0.11 #; Lymphocytes # 2.8 10*3/uL (1.4-4.0); Lymphocytes % 18.3 % (21.2-54.2); Mean Corpuscular HGB Conc 32.6 GM/DL (32-36); Mean Corpuscular Volume 85.4 FL (87-102); Mean Platelet Volume 9.8 FL (9.6-12.0); Neutrophils % 73.9 % (38.7-73.9); Platelet Count 394 T/CUMM (130-400); Red Blood Count 3.84 MC/CUMM (3.8-5.5); Red Cell Distribution Width 12.6 % (9.3-17.3); White Blood Count 15.2 T/CUMM (4-12)
[2021-06-05] MEDS: SODIUM CHLORIDE 0.9% 1,000 ML IV SCH (10:07)
[2021-06-05 10:12] LABS: Calcium 8.4 MG/DL (8.5-10.1); Potassium 4.2 MMOL/L (3.5-5.1)
[2021-06-05] MEDS ORDERED: ONDANSETRON 4 MG/2 ML VIAL IV PRN (10:12)
[2021-06-05] MEDS ORDERED: GLUCAGON 1 MG VIAL IM PRN (10:59)
[2021-06-05] MEDS ORDERED: DEXTROSE 50% 25 GM/50 ML VIAL IV PRN (10:59)
[2021-06-06] MEDS: HYDROmorphone 1 MG/1 ML SYRINGE IV PRN ×6 (00:38→23:46)
[2021-06-06] MEDS: VANCOMYCIN INJ 1,250 MG in SODIUM CHLORIDE 0.9% 250 ML IV SCH ×3 (02:16→23:47)
[2021-06-06] MEDS: PIPERACILLIN/TAZOBACTAM 3,375 MG in SODIUM CHLORIDE 0.9% 100 ML IV SCH ×3 (05:42→20:16)
[2021-06-06 06:04] LABS: Basophils % 0.3 % (0.0-0.8); Eosinophils # 0.2 10*3/uL (0.0-0.87); Eosinophils % 1.1 % (0.00-10.9); Hematocrit 30.4 VOL% (42.0-52.0); Hemoglobin 10.1 GM/DL (14.0-18.0); Immature Granulocytes % 0.9 %; Immature Granulocytes Absolute 0.14 #; Lymphocytes # 2.9 10*3/uL (1.4-4.0); Lymphocytes % 19.6 % (21.2-54.2); Mean Corpuscular HGB Conc 33.2 GM/DL (32-36); Mean Corpuscular Volume 84.7 FL (87-102); Mean Platelet Volume 9.5 FL (9.6-12.0); Monocytes % 4.6 % (1.7-12.7); Neutrophils % 73.5 % (38.7-73.9); Platelet Count 370 T/CUMM (130-400); Red Blood Count 3.59 MC/CUMM (3.8-5.5); Red Cell Distribution Width 12.8 % (9.3-17.3); White Blood Count 14.9 T/CUMM (4-12)
[2021-06-06 06:27] LABS: Calcium 8.4 MG/DL (8.5-10.1); Osmolality,Calculated 275.1 MOS/KG (273-304); Potassium 3.9 MMOL/L (3.5-5.1)
[2021-06-06] MEDS: INSULIN GLARGINE 100 UNIT/ML SUBCUT SCH (08:55)
[2021-06-06] MEDS: INSULIN LISPRO 100 UNIT/ML SUBCUT SCH ×7 (08:56→20:16)
[2021-06-06] MEDS: SODIUM HYPOCHLORITE 0.25% IRRIG 473 ML BOTTLE TOP SCH (08:57)
[2021-06-07] MEDS: HYDROmorphone 1 MG/1 ML SYRINGE IV PRN ×5 (04:30→21:32)
[2021-06-07] MEDS: PIPERACILLIN/TAZOBACTAM 3,375 MG in SODIUM CHLORIDE 0.9% 100 ML IV SCH ×3 (04:30→21:24)
[2021-06-07] MEDS: INSULIN GLARGINE 100 UNIT/ML SUBCUT SCH (09:10)
[2021-06-07] MEDS: INSULIN LISPRO 100 UNIT/ML SUBCUT SCH ×7 (09:10→21:26)
[2021-06-07] MEDS: SODIUM HYPOCHLORITE 0.25% IRRIG 473 ML BOTTLE TOP SCH (09:12)
[2021-06-07] MEDS: VANCOMYCIN INJ 1,250 MG in SODIUM CHLORIDE 0.9% 250 ML IV SCH (12:12)
[2021-06-08] MEDS: VANCOMYCIN INJ 1,250 MG in SODIUM CHLORIDE 0.9% 250 ML IV SCH (01:26)
[2021-06-08] MEDS: SODIUM CHLORIDE 0.9% 1,000 ML IV SCH (01:47)
[2021-06-08] MEDS: HYDROmorphone 1 MG/1 ML SYRINGE IV PRN ×4 (04:46→22:14)
[2021-06-08 05:25] LABS: Basophils # 0.1 10*3/uL (0.0-0.2); Basophils % 0.4 % (0.0-0.8); Eosinophils # 0.3 10*3/uL (0.0-0.87); Eosinophils % 1.6 % (0.00-10.9); Hematocrit 29.7 VOL% (42.0-52.0); Hemoglobin 10.1 GM/DL (14.0-18.0); Immature Granulocytes % 0.8 %; Immature Granulocytes Absolute 0.13 #; Lymphocytes # 3.2 10*3/uL (1.4-4.0); Lymphocytes % 19.2 % (21.2-54.2); Mean Corpuscular Volume 83.7 FL (87-102); Mean Platelet Volume 9.3 FL (9.6-12.0); Platelet Count 373 T/CUMM (130-400); Red Blood Count 3.55 MC/CUMM (3.8-5.5); Red Cell Distribution Width 12.7 % (9.3-17.3); White Blood Count 16.4 T/CUMM (4-12)
[2021-06-08] MEDS: PIPERACILLIN/TAZOBACTAM 3,375 MG in SODIUM CHLORIDE 0.9% 100 ML IV SCH ×2 (05:40→12:16)
[2021-06-08 05:49] LABS: Calcium 8.8 MG/DL (8.5-10.1); Osmolality,Calculated 276.7 MOS/KG (273-304); Potassium 3.5 MMOL/L (3.5-5.1)
[2021-06-08] MEDS: ONDANSETRON 4 MG/2 ML VIAL IV PRN (08:16)
[2021-06-08] MEDS: SODIUM HYPOCHLORITE 0.25% IRRIG 473 ML BOTTLE TOP SCH (10:15)
[2021-06-08] MEDS: INSULIN LISPRO 100 UNIT/ML SUBCUT SCH ×7 (11:44→22:14)
[2021-06-08] MEDS: INSULIN GLARGINE 100 UNIT/ML SUBCUT SCH (12:14)
[2021-06-08] MEDS: LEVOFLOXACIN 750 MG TABLET PO SCH (15:47)
[2021-06-09] MEDS: HYDROmorphone 1 MG/1 ML SYRINGE IV PRN (03:30)
[2021-06-09 05:25] LABS: Basophils # 0.1 10*3/uL (0.0-0.2); Basophils % 0.4 % (0.0-0.8); Eosinophils # 0.2 10*3/uL (0.0-0.87); Eosinophils % 1.3 % (0.00-10.9); Hematocrit 30.9 VOL% (42.0-52.0); Hemoglobin 10.4 GM/DL (14.0-18.0); Immature Granulocytes % 1.1 %; Immature Granulocytes Absolute 0.15 #; Lymphocytes # 2.7 10*3/uL (1.4-4.0); Lymphocytes % 18.8 % (21.2-54.2); Mean Corpuscular HGB Conc 33.7 GM/DL (32-36); Mean Corpuscular Volume 84.4 FL (87-102); Mean Platelet Volume 9.7 FL (9.6-12.0); Monocytes % 6.3 % (1.7-12.7); Neutrophils % 72.1 % (38.7-73.9); Platelet Count 401 T/CUMM (130-400); Red Blood Count 3.66 MC/CUMM (3.8-5.5); Red Cell Distribution Width 12.9 % (9.3-17.3); White Blood Count 14.1 T/CUMM (4-12)
[2021-06-09 05:56] LABS: Calcium 9.1 MG/DL (8.5-10.1); Osmolality,Calculated 276.7 MOS/KG (273-304); Potassium 3.8 MMOL/L (3.5-5.1)
[2021-06-09 08:12] VITALS: BP 139/87
[2021-06-09] MEDS: INSULIN GLARGINE 100 UNIT/ML SUBCUT SCH (10:12)
[2021-06-09] MEDS: INSULIN LISPRO 100 UNIT/ML SUBCUT SCH ×2 (10:14→10:15)
[2021-06-09] MEDS: LEVOFLOXACIN 750 MG TABLET PO SCH (10:15)
[2021-06-09] MEDS: SODIUM HYPOCHLORITE 0.25% IRRIG 473 ML BOTTLE TOP SCH (10:16)
== END 2021-06-09 11:39 | disposition home or self-care (01) | DRG 951 ==
LOC: N.ED 09:18 → SUATTDRO 11:46 → N.EDINP 11:46 → N.5E 16:18
PROVIDERS: ADMIT Internal Medicine; ATTEND Internal Medicine

== ENCOUNTER 2021-06-26 07:08 | Inpatient (IN) ==
[2021-06-26] MEDS ORDERED: INSULIN REGULAR 100 UNIT/ML IV ONE (08:03)
[2021-06-26] MEDS ORDERED: CLINDAMYCIN INJ 900 MG/50 ML PREMIX IV ONE (09:13)
[2021-06-26] MEDS ORDERED: LIDOCAINE 2% 5 ML VIAL ONE (09:58)
[2021-06-26] MEDS ORDERED: propofoL 200 MG/20 ML VIAL IV ONE (09:58)
[2021-06-26] MEDS ORDERED: ONDANSETRON 4 MG/2 ML VIAL ONE (09:58)
[2021-06-26] MEDS ORDERED: fentaNYL 100 MCG/2 ML VIAL ONE (09:58)
[2021-06-26] MEDS ORDERED: MIDAZOLAM 2 MG/2 ML VIAL ONE (10:01)
[2021-06-26] MEDS ORDERED: LACTATED RINGERS 1,000 ML IV ONE (10:43)
[2021-06-26] MEDS ORDERED: PHENYLEPHRINE 1 MG/10 ML SYRINGE IV ONE (10:50)
[2021-06-26] MEDS ORDERED: SEVOFLURANE 1 UNIT/15 MINUTE INH ONE (10:50)
[2021-06-26] MEDS ORDERED: ONDANSETRON 4 MG/2 ML VIAL IV PRN ×2 (11:09→11:54)
[2021-06-26] MEDS ORDERED: ACETAMINOPHEN 325 MG TABLET PO PRN (11:09)
[2021-06-26] MEDS ORDERED: GLUCAGON 1 MG VIAL IM PRN (11:11)
[2021-06-26] MEDS ORDERED: DEXTROSE 10% 250 ML BAG IV PRN (11:32)
[2021-06-26] MEDS ORDERED: MEPERIDINE 25 MG/1 ML VIAL ONE (11:54)
[2021-06-26] MEDS: MEPERIDINE 25 MG/1 ML VIAL IV PRN ×2 (11:55→12:58)
[2021-06-26] MEDS: INSULIN REGULAR 100 UNIT/ML SUBCUT SCH ×3 (14:01→21:29)
[2021-06-26] MEDS: PIPERACILLIN/TAZOBACTAM 3,375 MG in SODIUM CHLORIDE 0.9% 100 ML IV SCH ×2 (14:01→21:30)
[2021-06-26] MEDS ORDERED: PROMETHAZINE 25 MG/1 ML VIAL IM PRN (15:32)
[2021-06-26] MEDS: HYDROmorphone 1 MG/1 ML SYRINGE IV PRN ×2 (16:13→19:57)
[2021-06-26] MEDS: VANCOMYCIN INJ 1,250 MG in SODIUM CHLORIDE 0.9% 250 ML IV SCH (16:44)
[2021-06-27] MEDS: HYDROmorphone 1 MG/1 ML SYRINGE IV PRN ×5 (02:20→20:12)
[2021-06-27] MEDS: VANCOMYCIN INJ 1,250 MG in SODIUM CHLORIDE 0.9% 250 ML IV SCH ×2 (03:55→15:30)
[2021-06-27 06:09] LABS: Basophils % 0.2 % (0.0-0.8); Eosinophils # 0.1 10*3/uL (0.0-0.87); Eosinophils % 0.5 % (0.00-10.9); Hematocrit 28.3 VOL% (42.0-52.0); Hemoglobin 9.4 GM/DL (14.0-18.0); Immature Granulocytes % 0.9 %; Immature Granulocytes Absolute 0.18 #; Lymphocytes # 2.5 10*3/uL (1.4-4.0); Lymphocytes % 12.7 % (21.2-54.2); Mean Corpuscular HGB Conc 33.2 GM/DL (32-36); Mean Platelet Volume 10.6 FL (9.6-12.0); Monocytes # 0.7 10*3/uL (0.11-0.8); Monocytes % 3.6 % (1.7-12.7); Neutrophils % 82.1 % (38.7-73.9); Platelet Count 363 T/CUMM (130-400); Red Blood Count 3.41 MC/CUMM (3.8-5.5); White Blood Count 19.8 T/CUMM (4-12)
[2021-06-27] MEDS: PIPERACILLIN/TAZOBACTAM 3,375 MG in SODIUM CHLORIDE 0.9% 100 ML IV SCH ×3 (06:24→20:10)
[2021-06-27 06:28] LABS: Calcium 8.6 MG/DL (8.5-10.1); Osmolality,Calculated 269.4 MOS/KG (273-304)
[2021-06-27 06:33] LABS: Hypochromia Slight; Lymphocytes 11 % (20-55); Microcytosis Slight; Platelet Estimate Adequate; Total Cells Counted 100
[2021-06-27] MEDS: LACTATED RINGERS 1,000 ML IV SCH (07:51)
[2021-06-27] MEDS: INSULIN REGULAR 100 UNIT/ML SUBCUT SCH ×4 (08:12→20:34)
[2021-06-27] MEDS: PANTOPRAZOLE 40 MG TABLET PO SCH (09:24)
[2021-06-27] MEDS: ENOXAPARIN 40 MG/0.4 ML SYRINGE SUBCUT SCH (09:27)
[2021-06-28] MEDS: HYDROmorphone 1 MG/1 ML SYRINGE IV PRN ×5 (00:03→20:06)
[2021-06-28 04:18] LABS: Basophils % 0.1 % (0.0-0.8); Eosinophils # 0.3 10*3/uL (0.0-0.87); Eosinophils % 1.6 % (0.00-10.9); Hematocrit 25.7 VOL% (42.0-52.0); Hemoglobin 8.4 GM/DL (14.0-18.0); Immature Granulocytes % 0.8 %; Immature Granulocytes Absolute 0.13 #; Lymphocytes # 3.1 10*3/uL (1.4-4.0); Lymphocytes % 19.6 % (21.2-54.2); Mean Corpuscular HGB Conc 32.7 GM/DL (32-36); Mean Corpuscular Volume 82.9 FL (87-102); Mean Platelet Volume 9.5 FL (9.6-12.0); Monocytes # 0.8 10*3/uL (0.11-0.8); Monocytes % 4.8 % (1.7-12.7); Neutrophils % 73.1 % (38.7-73.9); Platelet Count 386 T/CUMM (130-400); White Blood Count 15.8 T/CUMM (4-12)
[2021-06-28 04:37] LABS: Calcium 8.9 MG/DL (8.5-10.1); Osmolality,Calculated 270.8 MOS/KG (273-304); Potassium 3.9 MMOL/L (3.5-5.1)
[2021-06-28] MEDS: VANCOMYCIN INJ 1,250 MG in SODIUM CHLORIDE 0.9% 250 ML IV SCH ×2 (05:05→16:20)
[2021-06-28] MEDS: INSULIN REGULAR 100 UNIT/ML SUBCUT SCH ×4 (08:47→20:41)
[2021-06-28] MEDS: PANTOPRAZOLE 40 MG TABLET PO SCH (08:48)
[2021-06-28] MEDS: PIPERACILLIN/TAZOBACTAM 3,375 MG in SODIUM CHLORIDE 0.9% 100 ML IV SCH ×3 (08:49→20:01)
[2021-06-28] MEDS: ENOXAPARIN 40 MG/0.4 ML SYRINGE SUBCUT SCH (08:50)
[2021-06-28] MEDS: LACTATED RINGERS 1,000 ML IV SCH (15:58)
[2021-06-29] MEDS: HYDROmorphone 1 MG/1 ML SYRINGE IV PRN ×6 (00:17→23:35)
[2021-06-29] MEDS: LACTATED RINGERS 1,000 ML IV SCH ×2 (02:32→10:05)
[2021-06-29] MEDS: VANCOMYCIN INJ 1,250 MG in SODIUM CHLORIDE 0.9% 250 ML IV SCH ×2 (04:05→21:54)
[2021-06-29] MEDS: PIPERACILLIN/TAZOBACTAM 3,375 MG in SODIUM CHLORIDE 0.9% 100 ML IV SCH (06:09)
[2021-06-29] MEDS: PANTOPRAZOLE 40 MG TABLET PO SCH (09:59)
[2021-06-29] MEDS ORDERED: cefTRIAXone 2,000 MG in SODIUM CHLORIDE 0.9% 100 ML IV SCH (10:00)
[2021-06-29] MEDS: INSULIN REGULAR 100 UNIT/ML SUBCUT SCH ×3 (10:02→21:55)
[2021-06-29] MEDS: ENOXAPARIN 40 MG/0.4 ML SYRINGE SUBCUT SCH (12:20)
[2021-06-29] MEDS ORDERED: HYDROCORTISONE 100 MG VIAL IV ONE (12:28)
[2021-06-29] MEDS ORDERED: diphenhydrAMINE 50 MG/1 ML VIAL ONE (12:37)
[2021-06-29] MEDS ORDERED: diphenhydrAMINE 50 MG/1 ML VIAL IV ONE (12:38)
[2021-06-29 13:14] LABS: Basophils % 0.2 % (0.0-0.8); Eosinophils # 0.1 10*3/uL (0.0-0.87); Eosinophils % 0.6 % (0.00-10.9); Hematocrit 33.2 VOL% (42.0-52.0); Hemoglobin 11.3 GM/DL (14.0-18.0); Immature Granulocytes % 2.8 %; Immature Granulocytes Absolute 0.27 #; Lymphocytes # 3.9 10*3/uL (1.4-4.0); Lymphocytes % 40.4 % (21.2-54.2); Mean Corpuscular Volume 80.8 FL (87-102); Mean Platelet Volume 9.3 FL (9.6-12.0); Monocytes # 0.3 10*3/uL (0.11-0.8); Monocytes % 3.5 % (1.7-12.7); Neutrophils % 52.5 % (38.7-73.9); Platelet Count 578 T/CUMM (130-400); Red Blood Count 4.11 MC/CUMM (3.8-5.5); Red Cell Distribution Width 13.1 % (9.3-17.3); White Blood Count 9.8 T/CUMM (4-12)
[2021-06-29] MEDS ORDERED: ALBUTEROL/IPRATROPIUM 3 ML NEB RESP TX PRN (13:23)
[2021-06-29 13:28] LABS: Alanine Aminotransferase < 9 U/L (16-61); Alkaline Phosphatase 108 U/L (45-117); Aspartate Amino Transferase 6 U/L (0-37); Bilirubin,Total < 0.39 MG/DL (0.20-1.00); Blood Urea Nitrogen 6 MG/DL (7-18); Calcium 8.6 MG/DL (8.5-10.1); Carbon Dioxide 28 MMOL/L (21-32); Chloride 103 MMOL/L (98-107); Estimated Glom Filtration Rate 123 ML/MIN; Glucose 292 MG/DL (74-106); Potassium 3.9 MMOL/L (3.5-5.1); Sodium 136 MMOL/L (136-145); Total Protein 8.1 G/DL (6.4-8.2)
[2021-06-29 13:45] LABS: Lymphocytes 33 % (20-55); Total Cells Counted 100
[2021-06-29 13:47] LABS: Platelet Estimate Increased
[2021-06-29] MEDS: FAMOTIDINE 20 MG/2 ML VIAL IV SCH (14:47)
[2021-06-29] MEDS: methylPREDNISolone SOD SUC 40 MG/1 ML VIAL IV SCH ×2 (14:48→21:55)
[2021-06-29] MEDS: diphenhydrAMINE 50 MG/1 ML VIAL IV SCH (18:08)
[2021-06-29] MEDS ORDERED: INSULIN REGULAR 100 UNIT/ML SUBCUT ONE (23:43)
[2021-06-30] MEDS: diphenhydrAMINE 50 MG/1 ML VIAL IV SCH ×5 (00:10→23:38)
[2021-06-30] MEDS: HYDROmorphone 1 MG/1 ML SYRINGE IV PRN ×4 (03:25→22:26)
[2021-06-30] MEDS: FAMOTIDINE 20 MG/2 ML VIAL IV SCH ×2 (03:30→20:55)
[2021-06-30] MEDS: methylPREDNISolone SOD SUC 40 MG/1 ML VIAL IV SCH ×3 (06:01→20:55)
[2021-06-30] MEDS: PANTOPRAZOLE 40 MG TABLET PO SCH (09:05)
[2021-06-30] MEDS: INSULIN REGULAR 100 UNIT/ML SUBCUT SCH ×4 (09:08→20:55)
[2021-06-30] MEDS: ENOXAPARIN 40 MG/0.4 ML SYRINGE SUBCUT SCH (09:20)
[2021-06-30] MEDS ORDERED: fentaNYL 100 MCG/2 ML VIAL ONE (09:42)
[2021-06-30] MEDS ORDERED: DEXMEDETOMIDINE 200 MCG/2 ML VIAL ONE (09:42)
[2021-06-30] MEDS ORDERED: propofoL 200 MG/20 ML VIAL IV ONE (09:42)
[2021-06-30] MEDS ORDERED: MIDAZOLAM 2 MG/2 ML VIAL ONE (09:42)
[2021-06-30] MEDS ORDERED: LACTATED RINGERS 1,000 ML IV SCH (10:00)
[2021-06-30] MEDS ORDERED: ONDANSETRON 4 MG/2 ML VIAL ONE (10:21)
[2021-06-30] MEDS ORDERED: INSULIN REGULAR 100 UNIT/ML IV ONE (10:59)
[2021-06-30] MEDS: LACTATED RINGERS 1,000 ML IV SCH (12:04)
[2021-06-30] MEDS: VANCOMYCIN INJ 1,250 MG in SODIUM CHLORIDE 0.9% 250 ML IV SCH (12:51)
[2021-06-30] MEDS: SODIUM HYPOCHLORITE 0.25% IRRIG 473 ML BOTTLE TOP SCH (12:57)
[2021-07-01] MEDS: HYDROmorphone 1 MG/1 ML SYRINGE IV PRN ×3 (02:29→10:51)
[2021-07-01] MEDS: VANCOMYCIN INJ 1,250 MG in SODIUM CHLORIDE 0.9% 250 ML IV SCH ×2 (02:30→16:34)
[2021-07-01] MEDS: methylPREDNISolone SOD SUC 40 MG/1 ML VIAL IV SCH ×2 (05:24→15:24)
[2021-07-01] MEDS: diphenhydrAMINE 50 MG/1 ML VIAL IV SCH ×2 (05:25→12:55)
[2021-07-01] MEDS: INSULIN REGULAR 100 UNIT/ML SUBCUT SCH ×2 (08:43→11:49)
[2021-07-01] MEDS: ENOXAPARIN 40 MG/0.4 ML SYRINGE SUBCUT SCH (08:56)
[2021-07-01] MEDS: PANTOPRAZOLE 40 MG TABLET PO SCH (08:56)
[2021-07-01] MEDS: FAMOTIDINE 20 MG/2 ML VIAL IV SCH (10:08)
[2021-07-01] MEDS: SODIUM HYPOCHLORITE 0.25% IRRIG 473 ML BOTTLE TOP SCH ×2 (10:15→10:16)
[2021-07-01] MEDS ORDERED: INSULIN NPH/REGULAR 70/30 100 UNIT/ML SUBCUT SCH (11:00)
[2021-07-01] MEDS ORDERED: propofoL 200 MG/20 ML VIAL IV ONE (14:21)
[2021-07-01] MEDS ORDERED: LIDOCAINE 2% 5 ML VIAL ONE (14:21)
[2021-07-01] MEDS: LACTATED RINGERS 1,000 ML IV SCH (15:24)
[2021-07-01 15:55] VITALS: BP 174/94
[2021-07-01] MEDS ORDERED: hydrALAZINE 20 MG/1 ML VIAL IV PRN (16:05)
== END 2021-07-01 16:26 | disposition home health service (06) | DRG 305 ==
LOC: N.OR 07:08 → N.SDSINP 07:10 → N.5E 13:55
PROVIDERS: ADMIT Student in an Organized Health Care Education/Training Program; ATTEND Student in an Organized Health Care Education/Training Program

== ENCOUNTER 2021-07-20 17:36 | Inpatient (IN) ==
[2021-07-20 21:28] LABS: Basophils % 0.2 % (0.0-0.8); Eosinophils # 0.1 10*3/uL (0.0-0.87); Eosinophils % 0.8 % (0.00-10.9); Hematocrit 30.3 VOL% (42.0-52.0); Hemoglobin 9.9 GM/DL (14.0-18.0); Immature Granulocytes % 0.8 %; Immature Granulocytes Absolute 0.15 #; Lymphocytes # 2.5 10*3/uL (1.4-4.0); Lymphocytes % 13.8 % (21.2-54.2); Mean Corpuscular HGB Conc 32.7 GM/DL (32-36); Mean Corpuscular Volume 81.5 FL (87-102); Mean Platelet Volume 9.8 FL (9.6-12.0); Monocytes # 1.1 10*3/uL (0.11-0.8); Monocytes % 6.1 % (1.7-12.7); Neutrophils % 78.3 % (38.7-73.9); Platelet Count 517 T/CUMM (130-400); Red Blood Count 3.72 MC/CUMM (3.8-5.5); Red Cell Distribution Width 14.4 % (9.3-17.3); White Blood Count 18.4 T/CUMM (4-12)
[2021-07-20 21:51] LABS: Albumin 2.4 G/DL (3.4-5.0); Bilirubin,Total 0.4 MG/DL (0.20-1.00); Calcium 9.2 MG/DL (8.5-10.1); Osmolality,Calculated 269.2 MOS/KG (273-304); Potassium 3.5 MMOL/L (3.5-5.1); Total Protein 9.5 G/DL (6.4-8.2)
[2021-07-20] MEDS ORDERED: VANCOMYCIN INJ 1,000 MG in SODIUM CHLORIDE 0.9% 250 ML IV STA (22:51)
[2021-07-20] MEDS ORDERED: INSULIN REGULAR 100 UNIT/ML IV ONE (22:51)
[2021-07-20] MEDS ORDERED: PIPERACILLIN/TAZOBACTAM 3,375 MG in SODIUM CHLORIDE 0.9% 100 ML IV STA (22:52)
[2021-07-20] MEDS ORDERED: SODIUM CHLORIDE 0.9% 500 ML IV STA (22:53)
[2021-07-20] MEDS ORDERED: GLUCAGON 1 MG VIAL IM PRN (23:05)
[2021-07-20] MEDS ORDERED: DEXTROSE 10% 250 ML BAG IV PRN (23:05)
[2021-07-21] MEDS: LACTATED RINGERS 1,000 ML IV SCH ×2 (01:43→15:24)
[2021-07-21] MEDS ORDERED: MAGNESIUM SULF RIDER 4 GM/100 ML PREMIX IV PRN (12:34)
[2021-07-21] MEDS ORDERED: MAGNESIUM SULF RIDER 2 GM/50 ML PREMIX IV PRN (12:34)
[2021-07-21] MEDS ORDERED: POTASSIUM CHLORIDE RIDER 10 MEQ/100 ML PREMIX IV PRN (12:34)
[2021-07-21] MEDS ORDERED: POTASSIUM CHLORIDE 20 MEQ TABLET PO PRN (12:34)
[2021-07-21] MEDS ORDERED: hydrALAZINE 20 MG/1 ML VIAL IV PRN (12:48)
[2021-07-21] MEDS ORDERED: ACETAMINOPHEN 325 MG TABLET PO PRN (12:58)
[2021-07-21] MEDS ORDERED: ONDANSETRON 4 MG/2 ML VIAL IV PRN (12:58)
[2021-07-21] MEDS: PIPERACILLIN/TAZOBACTAM 3,375 MG in SODIUM CHLORIDE 0.9% 100 ML IV SCH ×2 (13:15→20:25)
[2021-07-21] MEDS ORDERED: VANCOMYCIN INJ 1,250 MG in SODIUM CHLORIDE 0.9% 250 ML IV SCH (14:00)
[2021-07-21] MEDS ORDERED: GLUCAGON 1 MG VIAL IM PRN (14:34)
[2021-07-21] MEDS ORDERED: DEXTROSE 50% 25 GM/50 ML VIAL IV PRN (14:34)
[2021-07-21] MEDS ORDERED: HYDROmorphone 1 MG/1 ML SYRINGE IV PRN (14:36)
[2021-07-21] MEDS: PANTOPRAZOLE 40 MG TABLET PO SCH (15:23)
[2021-07-21 16:37] LABS: Basophils % 0.2 % (0.0-0.8); Eosinophils # 0.2 10*3/uL (0.0-0.87); Eosinophils % 1.7 % (0.00-10.9); Hematocrit 27.5 VOL% (42.0-52.0); Hemoglobin 9.1 GM/DL (14.0-18.0); Immature Granulocytes % 0.8 %; Immature Granulocytes Absolute 0.11 #; Lymphocytes # 2.7 10*3/uL (1.4-4.0); Lymphocytes % 18.4 % (21.2-54.2); Mean Corpuscular HGB Conc 33.1 GM/DL (32-36); Mean Corpuscular Volume 80.9 FL (87-102); Mean Platelet Volume 9.5 FL (9.6-12.0); Monocytes # 0.9 10*3/uL (0.11-0.8); Monocytes % 5.9 % (1.7-12.7); Platelet Count 445 T/CUMM (130-400); Red Cell Distribution Width 14.5 % (9.3-17.3); White Blood Count 14.5 T/CUMM (4-12)
[2021-07-21] MEDS: INSULIN ASPART PROTAMINE/ASPART 70/30 100 UNIT/ML SUBCUT SCH (16:50)
[2021-07-21] MEDS: INSULIN LISPRO 100 UNIT/ML SUBCUT SCH ×2 (16:51→20:18)
[2021-07-21 17:00] LABS: Alanine Aminotransferase 10 U/L (16-61); Alkaline Phosphatase 113 U/L (45-117); Aspartate Amino Transferase 6 U/L (0-37); Bilirubin,Total < 0.39 MG/DL (0.20-1.00); Blood Urea Nitrogen 6 MG/DL (7-18); Calcium 8.8 MG/DL (8.5-10.1); Carbon Dioxide 27 MMOL/L (21-32); Chloride 100 MMOL/L (98-107); Glucose 410 MG/DL (74-106); Osmolality,Calculated 282.2 MOS/KG (273-304); Potassium 4.1 MMOL/L (3.5-5.1); Sodium 134 MMOL/L (136-145)
[2021-07-21] MEDS: DOCUSATE SODIUM 100 MG CAPSULE PO SCH (20:19)
[2021-07-21] MEDS ORDERED: INSULIN GLARGINE 100 UNIT/ML SUBCUT SCH (21:00)
[2021-07-22] MEDS: LACTATED RINGERS 1,000 ML IV SCH ×4 (00:30→17:31)
[2021-07-22] MEDS: VANCOMYCIN INJ 1,250 MG in SODIUM CHLORIDE 0.9% 250 ML IV SCH ×2 (02:22→19:53)
[2021-07-22 03:41] LABS: Basophils % 0.2 % (0.0-0.8); Eosinophils # 0.2 10*3/uL (0.0-0.87); Eosinophils % 1.6 % (0.00-10.9); Hematocrit 25.1 VOL% (42.0-52.0); Hemoglobin 8.2 GM/DL (14.0-18.0); Immature Granulocytes % 0.8 %; Lymphocytes # 2.7 10*3/uL (1.4-4.0); Lymphocytes % 21.1 % (21.2-54.2); Mean Corpuscular HGB Conc 32.7 GM/DL (32-36); Mean Corpuscular Volume 81.2 FL (87-102); Mean Platelet Volume 9.8 FL (9.6-12.0); Monocytes # 0.8 10*3/uL (0.11-0.8); Monocytes % 6.1 % (1.7-12.7); Neutrophils % 70.2 % (38.7-73.9); Platelet Count 407 T/CUMM (130-400); Red Blood Count 3.09 MC/CUMM (3.8-5.5); Red Cell Distribution Width 14.2 % (9.3-17.3)
[2021-07-22 03:59] LABS: Alanine Aminotransferase 9 U/L (16-61); Albumin 1.7 G/DL (3.4-5.0); Alkaline Phosphatase 109 U/L (45-117); Aspartate Amino Transferase 6 U/L (0-37); Bilirubin,Total < 0.39 MG/DL (0.20-1.00); Blood Urea Nitrogen 7 MG/DL (7-18); Calcium 8.4 MG/DL (8.5-10.1); Carbon Dioxide 27 MMOL/L (21-32); Chloride 105 MMOL/L (98-107); Glucose 318 MG/DL (74-106); Potassium 3.8 MMOL/L (3.5-5.1); Sodium 136 MMOL/L (136-145); Total Protein 7.2 G/DL (6.4-8.2)
[2021-07-22] MEDS: PIPERACILLIN/TAZOBACTAM 3,375 MG in SODIUM CHLORIDE 0.9% 100 ML IV SCH ×3 (04:05→21:27)
[2021-07-22] MEDS: INSULIN ASPART PROTAMINE/ASPART 70/30 100 UNIT/ML SUBCUT SCH ×2 (08:05→16:23)
[2021-07-22] MEDS: INSULIN LISPRO 100 UNIT/ML SUBCUT SCH ×4 (09:25→21:23)
[2021-07-22] MEDS ORDERED: ONDANSETRON 4 MG/2 ML VIAL ONE (12:43)
[2021-07-22] MEDS ORDERED: LIDOCAINE 2% 5 ML VIAL ONE (12:43)
[2021-07-22] MEDS ORDERED: propofoL 200 MG/20 ML VIAL IV ONE (12:43)
[2021-07-22] MEDS ORDERED: SEVOFLURANE 1 UNIT/15 MINUTE INH ONE ×2 (12:43→13:28)
[2021-07-22] MEDS ORDERED: fentaNYL 100 MCG/2 ML VIAL ONE (12:43)
[2021-07-22] MEDS ORDERED: MIDAZOLAM 2 MG/2 ML VIAL ONE (12:43)
[2021-07-22] MEDS ORDERED: ZINC OXIDE PASTE 113 GM TUBE TOP PRN (13:41)
[2021-07-22] MEDS: HYDROmorphone 1 MG/1 ML SYRINGE IV PRN ×4 (13:45→23:18)
[2021-07-22] MEDS: DOCUSATE SODIUM 100 MG CAPSULE PO SCH ×2 (14:06→20:58)
[2021-07-22] MEDS: PANTOPRAZOLE 40 MG TABLET PO SCH (15:06)
[2021-07-23] MEDS: HYDROmorphone 1 MG/1 ML SYRINGE IV PRN ×6 (05:08→21:16)
[2021-07-23] MEDS: PIPERACILLIN/TAZOBACTAM 3,375 MG in SODIUM CHLORIDE 0.9% 100 ML IV SCH ×3 (05:12→21:19)
[2021-07-23 05:24] LABS: Basophils % 0.3 % (0.0-0.8); Eosinophils # 0.2 10*3/uL (0.0-0.87); Eosinophils % 1.6 % (0.00-10.9); Hematocrit 23.7 VOL% (42.0-52.0); Hemoglobin 7.8 GM/DL (14.0-18.0); Immature Granulocytes % 0.9 %; Immature Granulocytes Absolute 0.13 #; Lymphocytes # 3.2 10*3/uL (1.4-4.0); Lymphocytes % 21.1 % (21.2-54.2); Mean Corpuscular HGB Conc 32.9 GM/DL (32-36); Mean Corpuscular Volume 81.4 FL (87-102); Mean Platelet Volume 9.4 FL (9.6-12.0); Monocytes # 0.8 10*3/uL (0.11-0.8); Monocytes % 5.3 % (1.7-12.7); Neutrophils % 70.8 % (38.7-73.9); Platelet Count 395 T/CUMM (130-400); Red Blood Count 2.91 MC/CUMM (3.8-5.5); Red Cell Distribution Width 14.2 % (9.3-17.3)
[2021-07-23 05:38] LABS: Alanine Aminotransferase < 6 U/L (16-61); Albumin 1.6 G/DL (3.4-5.0); Alkaline Phosphatase 90 U/L (45-117); Aspartate Amino Transferase 7 U/L (0-37); Bilirubin,Total < 0.39 MG/DL (0.20-1.00); Blood Urea Nitrogen 4 MG/DL (7-18); Calcium 8.2 MG/DL (8.5-10.1); Carbon Dioxide 28 MMOL/L (21-32); Chloride 102 MMOL/L (98-107); Glucose 162 MG/DL (74-106); Osmolality,Calculated 270.1 MOS/KG (273-304); Potassium 3.7 MMOL/L (3.5-5.1); Sodium 135 MMOL/L (136-145); Total Protein 6.8 G/DL (6.4-8.2)
[2021-07-23 05:50] LABS: Eosinophils 2 % (0-10); Lymphocytes 19 % (20-55); Total Cells Counted 100
[2021-07-23 05:51] LABS: Platelet Estimate Normal
[2021-07-23] MEDS: VANCOMYCIN INJ 1,250 MG in SODIUM CHLORIDE 0.9% 250 ML IV SCH ×2 (08:33→19:38)
[2021-07-23] MEDS: INSULIN LISPRO 100 UNIT/ML SUBCUT SCH ×4 (08:34→21:18)
[2021-07-23] MEDS: INSULIN ASPART PROTAMINE/ASPART 70/30 100 UNIT/ML SUBCUT SCH ×2 (08:35→16:35)
[2021-07-23] MEDS: DOCUSATE SODIUM 100 MG CAPSULE PO SCH ×2 (08:35→21:18)
[2021-07-23] MEDS: PANTOPRAZOLE 40 MG TABLET PO SCH (08:35)
[2021-07-23] MEDS: SODIUM HYPOCHLORITE 0.25% IRRIG 473 ML BOTTLE TOP SCH (12:33)
[2021-07-23] MEDS: LACTATED RINGERS 1,000 ML IV SCH ×2 (16:37)
[2021-07-24] MEDS: HYDROmorphone 1 MG/1 ML SYRINGE IV PRN ×6 (00:21→23:05)
[2021-07-24] MEDS: PIPERACILLIN/TAZOBACTAM 3,375 MG in SODIUM CHLORIDE 0.9% 100 ML IV SCH ×3 (05:36→21:06)
[2021-07-24 05:44] LABS: Basophils % 0.2 % (0.0-0.8); Eosinophils # 0.3 10*3/uL (0.0-0.87); Eosinophils % 1.8 % (0.00-10.9); Hematocrit 26.4 VOL% (42.0-52.0); Hemoglobin 8.7 GM/DL (14.0-18.0); Immature Granulocytes % 0.7 %; Immature Granulocytes Absolute 0.12 #; Lymphocytes # 2.5 10*3/uL (1.4-4.0); Lymphocytes % 15.3 % (21.2-54.2); Mean Corpuscular Volume 81.5 FL (87-102); Mean Platelet Volume 9.4 FL (9.6-12.0); Monocytes # 0.8 10*3/uL (0.11-0.8); Monocytes % 4.9 % (1.7-12.7); Neutrophils % 77.1 % (38.7-73.9); Platelet Count 433 T/CUMM (130-400); Red Blood Count 3.24 MC/CUMM (3.8-5.5); Red Cell Distribution Width 14.1 % (9.3-17.3); White Blood Count 16.4 T/CUMM (4-12)
[2021-07-24 06:05] LABS: Alanine Aminotransferase < 9 U/L (16-61); Albumin 1.8 G/DL (3.4-5.0); Alkaline Phosphatase 106 U/L (45-117); Aspartate Amino Transferase 7 U/L (0-37); Bilirubin,Total < 0.39 MG/DL (0.20-1.00); Blood Urea Nitrogen 6 MG/DL (7-18); Calcium 8.6 MG/DL (8.5-10.1); Carbon Dioxide 32 MMOL/L (21-32); Chloride 98 MMOL/L (98-107); Glucose 247 MG/DL (74-106); Osmolality,Calculated 273.2 MOS/KG (273-304); Potassium 4.2 MMOL/L (3.5-5.1); Sodium 134 MMOL/L (136-145); Total Protein 7.7 G/DL (6.4-8.2)
[2021-07-24] MEDS: PANTOPRAZOLE 40 MG TABLET PO SCH (08:30)
[2021-07-24] MEDS: VANCOMYCIN INJ 1,250 MG in SODIUM CHLORIDE 0.9% 250 ML IV SCH (08:30)
[2021-07-24] MEDS: DOCUSATE SODIUM 100 MG CAPSULE PO SCH ×2 (08:30→21:04)
[2021-07-24] MEDS: INSULIN LISPRO 100 UNIT/ML SUBCUT SCH ×4 (08:31→21:24)
[2021-07-24] MEDS: INSULIN ASPART PROTAMINE/ASPART 70/30 100 UNIT/ML SUBCUT SCH ×2 (08:31→17:22)
[2021-07-24] MEDS: SODIUM HYPOCHLORITE 0.25% IRRIG 473 ML BOTTLE TOP SCH (11:34)
[2021-07-24] MEDS: LACTATED RINGERS 1,000 ML IV SCH ×2 (14:32→21:04)
[2021-07-24] MEDS: ENOXAPARIN 40 MG/0.4 ML SYRINGE SUBCUT SCH ×2 (14:32→16:29)
[2021-07-24] MEDS: VANCOMYCIN INJ 1,500 MG in SODIUM CHLORIDE 0.9% 500 ML IV SCH (19:06)
[2021-07-25] MEDS: HYDROmorphone 1 MG/1 ML SYRINGE IV PRN ×5 (03:39→21:20)
[2021-07-25] MEDS: PIPERACILLIN/TAZOBACTAM 3,375 MG in SODIUM CHLORIDE 0.9% 100 ML IV SCH ×3 (05:17→21:19)
[2021-07-25] MEDS: VANCOMYCIN INJ 1,500 MG in SODIUM CHLORIDE 0.9% 500 ML IV SCH ×2 (05:18→17:27)
[2021-07-25 05:51] LABS: Basophils % 0.3 % (0.0-0.8); Eosinophils # 0.3 10*3/uL (0.0-0.87); Eosinophils % 1.7 % (0.00-10.9); Hematocrit 25.3 VOL% (42.0-52.0); Hemoglobin 8.4 GM/DL (14.0-18.0); Immature Granulocytes Absolute 0.15 #; Lymphocytes # 2.2 10*3/uL (1.4-4.0); Lymphocytes % 14.8 % (21.2-54.2); Mean Corpuscular HGB Conc 33.2 GM/DL (32-36); Mean Corpuscular Volume 80.6 FL (87-102); Mean Platelet Volume 9.1 FL (9.6-12.0); Monocytes # 0.8 10*3/uL (0.11-0.8); Monocytes % 5.5 % (1.7-12.7); Neutrophils % 76.7 % (38.7-73.9); Platelet Count 398 T/CUMM (130-400); Red Blood Count 3.14 MC/CUMM (3.8-5.5); Red Cell Distribution Width 14.2 % (9.3-17.3); White Blood Count 14.9 T/CUMM (4-12)
[2021-07-25 06:19] LABS: Alanine Aminotransferase 10 U/L (16-61); Albumin 1.6 G/DL (3.4-5.0); Alkaline Phosphatase 120 U/L (45-117); Aspartate Amino Transferase 7 U/L (0-37); Bilirubin,Total < 0.39 MG/DL (0.20-1.00); Blood Urea Nitrogen 8 MG/DL (7-18); Calcium 8.5 MG/DL (8.5-10.1); Carbon Dioxide 31 MMOL/L (21-32); Chloride 101 MMOL/L (98-107); Glucose 300 MG/DL (74-106); Sodium 136 MMOL/L (136-145)
[2021-07-25] MEDS: PANTOPRAZOLE 40 MG TABLET PO SCH (09:22)
[2021-07-25] MEDS: DOCUSATE SODIUM 100 MG CAPSULE PO SCH ×2 (09:23→21:19)
[2021-07-25] MEDS: INSULIN LISPRO 100 UNIT/ML SUBCUT SCH ×4 (09:24→22:35)
[2021-07-25] MEDS: INSULIN ASPART PROTAMINE/ASPART 70/30 100 UNIT/ML SUBCUT SCH ×2 (09:24→17:25)
[2021-07-25] MEDS: SODIUM HYPOCHLORITE 0.25% IRRIG 473 ML BOTTLE TOP SCH (09:26)
[2021-07-25] MEDS: ENOXAPARIN 40 MG/0.4 ML SYRINGE SUBCUT SCH (11:31)
[2021-07-26] MEDS: HYDROmorphone 1 MG/1 ML SYRINGE IV PRN ×8 (00:04→23:14)
[2021-07-26] MEDS: VANCOMYCIN INJ 1,500 MG in SODIUM CHLORIDE 0.9% 500 ML IV SCH ×2 (05:05→17:16)
[2021-07-26 05:15] LABS: Basophils # 0.1 10*3/uL (0.0-0.2); Basophils % 0.3 % (0.0-0.8); Eosinophils # 0.3 10*3/uL (0.0-0.87); Eosinophils % 1.5 % (0.00-10.9); Hematocrit 25.8 VOL% (42.0-52.0); Hemoglobin 8.4 GM/DL (14.0-18.0); Immature Granulocytes % 1.1 %; Lymphocytes # 2.6 10*3/uL (1.4-4.0); Lymphocytes % 14.7 % (21.2-54.2); Mean Corpuscular HGB Conc 32.6 GM/DL (32-36); Mean Corpuscular Volume 81.1 FL (87-102); Mean Platelet Volume 9.2 FL (9.6-12.0); Monocytes # 1.1 10*3/uL (0.11-0.8); Neutrophils % 76.4 % (38.7-73.9); Platelet Count 474 T/CUMM (130-400); Red Blood Count 3.18 MC/CUMM (3.8-5.5); Red Cell Distribution Width 14.5 % (9.3-17.3); White Blood Count 17.6 T/CUMM (4-12)
[2021-07-26 05:39] LABS: Alanine Aminotransferase < 9 U/L (16-61); Albumin 1.7 G/DL (3.4-5.0); Alkaline Phosphatase 113 U/L (45-117); Aspartate Amino Transferase 10 U/L (0-37); Bilirubin,Total < 0.39 MG/DL (0.20-1.00); Blood Urea Nitrogen 8 MG/DL (7-18); Carbon Dioxide 29 MMOL/L (21-32); Chloride 102 MMOL/L (98-107); Glucose 176 MG/DL (74-106); Sodium 136 MMOL/L (136-145); Total Protein 7.4 G/DL (6.4-8.2)
[2021-07-26] MEDS: LACTATED RINGERS 1,000 ML IV SCH (06:31)
[2021-07-26] MEDS: PIPERACILLIN/TAZOBACTAM 3,375 MG in SODIUM CHLORIDE 0.9% 100 ML IV SCH ×3 (07:21→20:20)
[2021-07-26] MEDS: DOCUSATE SODIUM 100 MG CAPSULE PO SCH ×2 (08:17→20:19)
[2021-07-26] MEDS: PANTOPRAZOLE 40 MG TABLET PO SCH (08:17)
[2021-07-26] MEDS: INSULIN LISPRO 100 UNIT/ML SUBCUT SCH ×4 (08:18→20:06)
[2021-07-26] MEDS: INSULIN ASPART PROTAMINE/ASPART 70/30 100 UNIT/ML SUBCUT SCH ×2 (08:18→17:21)
[2021-07-26] MEDS: SODIUM HYPOCHLORITE 0.25% IRRIG 473 ML BOTTLE TOP SCH (11:29)
[2021-07-26] MEDS: ENOXAPARIN 40 MG/0.4 ML SYRINGE SUBCUT SCH (11:30)
[2021-07-27] MEDS: VANCOMYCIN INJ 1,500 MG in SODIUM CHLORIDE 0.9% 500 ML IV SCH ×2 (05:45→18:12)
[2021-07-27] MEDS: PIPERACILLIN/TAZOBACTAM 3,375 MG in SODIUM CHLORIDE 0.9% 100 ML IV SCH ×3 (05:46→20:28)
[2021-07-27 06:06] LABS: Basophils # 0.1 10*3/uL (0.0-0.2); Basophils % 0.3 % (0.0-0.8); Eosinophils # 0.3 10*3/uL (0.0-0.87); Eosinophils % 1.6 % (0.00-10.9); Hemoglobin 8.2 GM/DL (14.0-18.0); Immature Granulocytes % 1.2 %; Immature Granulocytes Absolute 0.18 #; Lymphocytes # 2.4 10*3/uL (1.4-4.0); Lymphocytes % 15.4 % (21.2-54.2); Mean Corpuscular HGB Conc 32.8 GM/DL (32-36); Mean Corpuscular Volume 80.1 FL (87-102); Monocytes # 0.8 10*3/uL (0.11-0.8); Monocytes % 5.4 % (1.7-12.7); Neutrophils % 76.1 % (38.7-73.9); Platelet Count 447 T/CUMM (130-400); Red Blood Count 3.12 MC/CUMM (3.8-5.5); Red Cell Distribution Width 14.5 % (9.3-17.3); White Blood Count 15.5 T/CUMM (4-12)
[2021-07-27 06:26] LABS: Alanine Aminotransferase 10 U/L (16-61); Albumin 1.7 G/DL (3.4-5.0); Alkaline Phosphatase 97 U/L (45-117); Aspartate Amino Transferase 7 U/L (0-37); Bilirubin,Total < 0.39 MG/DL (0.20-1.00); Blood Urea Nitrogen 6 MG/DL (7-18); Calcium 8.4 MG/DL (8.5-10.1); Carbon Dioxide 29 MMOL/L (21-32); Chloride 105 MMOL/L (98-107); Glucose 198 MG/DL (74-106); Osmolality,Calculated 280.5 MOS/KG (273-304); Sodium 139 MMOL/L (136-145); Total Protein 7.1 G/DL (6.4-8.2)
[2021-07-27] MEDS: PANTOPRAZOLE 40 MG TABLET PO SCH (08:40)
[2021-07-27] MEDS: DOCUSATE SODIUM 100 MG CAPSULE PO SCH ×2 (08:40→20:28)
[2021-07-27] MEDS: INSULIN LISPRO 100 UNIT/ML SUBCUT SCH ×4 (08:40→20:30)
[2021-07-27] MEDS: ENOXAPARIN 40 MG/0.4 ML SYRINGE SUBCUT SCH (08:41)
[2021-07-27] MEDS: INSULIN ASPART PROTAMINE/ASPART 70/30 100 UNIT/ML SUBCUT SCH ×2 (08:42→16:16)
[2021-07-27] MEDS: HYDROmorphone 1 MG/1 ML SYRINGE IV PRN ×4 (08:43→20:28)
[2021-07-27] MEDS: SODIUM HYPOCHLORITE 0.25% IRRIG 473 ML BOTTLE TOP SCH (08:44)
[2021-07-27] MEDS: LACTATED RINGERS 1,000 ML IV SCH ×2 (20:37→20:38)
[2021-07-28] MEDS: HYDROmorphone 1 MG/1 ML SYRINGE IV PRN ×6 (00:01→21:59)
[2021-07-28] MEDS: LACTATED RINGERS 1,000 ML IV SCH ×2 (03:00→05:02)
[2021-07-28] MEDS: VANCOMYCIN INJ 1,500 MG in SODIUM CHLORIDE 0.9% 500 ML IV SCH (05:02)
[2021-07-28] MEDS: PIPERACILLIN/TAZOBACTAM 3,375 MG in SODIUM CHLORIDE 0.9% 100 ML IV SCH ×3 (07:18→22:00)
[2021-07-28] MEDS: DOCUSATE SODIUM 100 MG CAPSULE PO SCH ×2 (08:21→22:01)
[2021-07-28] MEDS: INSULIN ASPART PROTAMINE/ASPART 70/30 100 UNIT/ML SUBCUT SCH ×3 (08:21→16:11)
[2021-07-28] MEDS: PANTOPRAZOLE 40 MG TABLET PO SCH (08:21)
[2021-07-28] MEDS: INSULIN LISPRO 100 UNIT/ML SUBCUT SCH ×4 (08:21→22:01)
[2021-07-28] MEDS: ENOXAPARIN 40 MG/0.4 ML SYRINGE SUBCUT SCH (09:02)
[2021-07-28] MEDS: SODIUM HYPOCHLORITE 0.25% IRRIG 473 ML BOTTLE TOP SCH (09:02)
[2021-07-29] MEDS: LACTATED RINGERS 1,000 ML IV SCH (02:15)
[2021-07-29] MEDS: HYDROmorphone 1 MG/1 ML SYRINGE IV PRN ×2 (02:15→10:10)
[2021-07-29 04:31] LABS: Basophils # 0.1 10*3/uL (0.0-0.2); Basophils % 0.4 % (0.0-0.8); Eosinophils # 0.3 10*3/uL (0.0-0.87); Hematocrit 26.3 VOL% (42.0-52.0); Hemoglobin 8.3 GM/DL (14.0-18.0); Immature Granulocytes % 3.4 %; Immature Granulocytes Absolute 0.46 #; Lymphocytes # 3.2 10*3/uL (1.4-4.0); Lymphocytes % 23.8 % (21.2-54.2); Mean Corpuscular HGB Conc 31.6 GM/DL (32-36); Mean Corpuscular Volume 81.7 FL (87-102); Mean Platelet Volume 8.6 FL (9.6-12.0); Monocytes # 0.8 10*3/uL (0.11-0.8); Monocytes % 6.2 % (1.7-12.7); Neutrophils % 64.2 % (38.7-73.9); Platelet Count 455 T/CUMM (130-400); Red Blood Count 3.22 MC/CUMM (3.8-5.5); Red Cell Distribution Width 14.9 % (9.3-17.3); White Blood Count 13.4 T/CUMM (4-12)
[2021-07-29 04:50] LABS: Alanine Aminotransferase 11 U/L (16-61); Albumin 1.9 G/DL (3.4-5.0); Alkaline Phosphatase 109 U/L (45-117); Aspartate Amino Transferase 7 U/L (0-37); Bilirubin,Total < 0.39 MG/DL (0.20-1.00); Blood Urea Nitrogen 7 MG/DL (7-18); Calcium 8.7 MG/DL (8.5-10.1); Carbon Dioxide 28 MMOL/L (21-32); Chloride 103 MMOL/L (98-107); Glucose 234 MG/DL (74-106); Osmolality,Calculated 278.8 MOS/KG (273-304); Potassium 3.9 MMOL/L (3.5-5.1); Sodium 137 MMOL/L (136-145); Total Protein 7.4 G/DL (6.4-8.2)
[2021-07-29 08:40] VITALS: BP 124/70
[2021-07-29] MEDS: PANTOPRAZOLE 40 MG TABLET PO SCH (10:08)
[2021-07-29] MEDS: DOCUSATE SODIUM 100 MG CAPSULE PO SCH (10:09)
[2021-07-29] MEDS: INSULIN LISPRO 100 UNIT/ML SUBCUT SCH (10:09)
[2021-07-29] MEDS: SODIUM HYPOCHLORITE 0.25% IRRIG 473 ML BOTTLE TOP SCH (10:09)
[2021-07-29] MEDS: ENOXAPARIN 40 MG/0.4 ML SYRINGE SUBCUT SCH (10:09)
[2021-07-29] MEDS: INSULIN ASPART PROTAMINE/ASPART 70/30 100 UNIT/ML SUBCUT SCH (10:10)
== END 2021-07-29 12:30 | DRG 305 ==
LOC: N.ED 17:36 → N.EDINP 23:02 → N.3E 07-21 16:08
PROVIDERS: ADMIT Family Medicine; ATTEND Family Medicine

== ENCOUNTER 2021-08-21 07:20 | Inpatient (IN) ==
[~2021-08-21 07:20] MED LIST: ceFAZolin 1,000 MG VIAL ONE
[2021-08-21] MEDS ORDERED: DIAZEPAM 5 MG TABLET PO ONE (07:42)
[2021-08-21] MEDS ORDERED: FAMOTIDINE 20 MG TABLET PO ONE (07:42)
[2021-08-21] MEDS ORDERED: FAMOTIDINE 20 MG TABLET ONE (07:48)
[2021-08-21] MEDS ORDERED: LACTATED RINGERS 1,000 ML IV SCH (08:00)
[2021-08-21] MEDS ORDERED: CLINDAMYCIN INJ 900 MG/50 ML PREMIX IV ONE ×2 (09:22→09:26)
[2021-08-21] MEDS ORDERED: propofoL 200 MG/20 ML VIAL IV ONE (09:31)
[2021-08-21] MEDS ORDERED: PHENYLEPHRINE 1 MG/10 ML SYRINGE IV ONE (09:31)
[2021-08-21] MEDS ORDERED: fentaNYL 100 MCG/2 ML VIAL ONE (09:31)
[2021-08-21] MEDS ORDERED: MIDAZOLAM 2 MG/2 ML VIAL ONE (09:31)
[2021-08-21] MEDS ORDERED: SEVOFLURANE 1 UNIT/15 MINUTE INH ONE (09:31)
[2021-08-21] MEDS ORDERED: LIDOCAINE 2% 5 ML VIAL ONE (09:31)
[2021-08-21] MEDS ORDERED: ONDANSETRON 4 MG/2 ML VIAL ONE (09:31)
[2021-08-21] MEDS ORDERED: LACTATED RINGERS 1,000 ML IV ONE (10:21)
[2021-08-21] MEDS ORDERED: ONDANSETRON 4 MG/2 ML VIAL IV PRN ×2 (10:36→10:57)
[2021-08-21] MEDS ORDERED: ACETAMINOPHEN 325 MG TABLET PO PRN (10:36)
[2021-08-21] MEDS: HYDROmorphone 1 MG/1 ML SYRINGE IV PRN ×4 (11:00→19:36)
[2021-08-21] MEDS: VANCOMYCIN INJ 1,500 MG in SODIUM CHLORIDE 0.9% 500 ML IV SCH (13:29)
[2021-08-21 13:53] LABS: Calcium 8.5 MG/DL (8.5-10.1); Osmolality,Calculated 279.1 MOS/KG (273-304); Potassium 3.8 MMOL/L (3.5-5.1)
[2021-08-21] MEDS ORDERED: GLUCAGON 1 MG VIAL IM PRN (15:18)
[2021-08-21] MEDS ORDERED: DEXTROSE 10% 250 ML BAG IV PRN (15:20)
[2021-08-21] MEDS: GENTAMICIN INJ 500 MG in SODIUM CHLORIDE 0.9% 100 ML IV SCH (16:02)
[2021-08-21] MEDS: INSULIN LISPRO 100 UNIT/ML SUBCUT SCH (16:15)
[2021-08-21] MEDS: INSULIN ASPART PROTAMINE/ASPART 70/30 100 UNIT/ML SUBCUT SCH (17:03)
[2021-08-21] MEDS: INSULIN GLARGINE 100 UNIT/ML SUBCUT SCH (20:46)
[2021-08-22] MEDS: HYDROmorphone 1 MG/1 ML SYRINGE IV PRN ×6 (00:10→23:17)
[2021-08-22] MEDS: VANCOMYCIN INJ 1,500 MG in SODIUM CHLORIDE 0.9% 500 ML IV SCH ×2 (00:52→12:30)
[2021-08-22 04:51] LABS: Basophils % 0.3 % (0.0-0.8); Eosinophils # 0.3 10*3/uL (0.0-0.87); Eosinophils % 2.4 % (0.00-10.9); Hematocrit 25.2 VOL% (42.0-52.0); Hemoglobin 8.3 GM/DL (14.0-18.0); Immature Granulocytes % 0.8 %; Immature Granulocytes Absolute 0.12 #; Lymphocytes # 3.5 10*3/uL (1.4-4.0); Lymphocytes % 24.9 % (21.2-54.2); Mean Corpuscular HGB Conc 32.9 GM/DL (32-36); Mean Corpuscular Volume 79.2 FL (87-102); Mean Platelet Volume 10.7 FL (9.6-12.0); Monocytes # 1.1 10*3/uL (0.11-0.8); Monocytes % 7.4 % (1.7-12.7); Neutrophils % 64.2 % (38.7-73.9); Platelet Count 244 T/CUMM (130-400); Red Blood Count 3.18 MC/CUMM (3.8-5.5); Red Cell Distribution Width 16.5 % (9.3-17.3); White Blood Count 14.2 T/CUMM (4-12)
[2021-08-22 05:17] LABS: Hypochromia 1+; Lymphocytes 21 % (20-55); Microcytosis 1+; Nucleated Red Blood Cells 3 (0-5); Platelet Estimate Adequate; Total Cells Counted 100
[2021-08-22 05:22] LABS: Alanine Aminotransferase 10 U/L (16-61); Albumin 2.1 G/DL (3.4-5.0); Alkaline Phosphatase 116 U/L (45-117); Aspartate Amino Transferase 8 U/L (0-37); Bilirubin,Total < 0.39 MG/DL (0.20-1.00); Blood Urea Nitrogen 6 MG/DL (7-18); Calcium 8.7 MG/DL (8.5-10.1); Carbon Dioxide 27 MMOL/L (21-32); Chloride 100 MMOL/L (98-107); Glucose 247 MG/DL (74-106); Potassium 3.9 MMOL/L (3.5-5.1); Sodium 136 MMOL/L (136-145); Total Protein 7.4 G/DL (6.4-8.2)
[2021-08-22] MEDS ORDERED: DEXTROSE 50% 25 GM/50 ML VIAL IV PRN (07:50)
[2021-08-22] MEDS ORDERED: GLUCAGON 1 MG VIAL IM PRN (07:50)
[2021-08-22] MEDS: INSULIN ASPART PROTAMINE/ASPART 70/30 100 UNIT/ML SUBCUT SCH ×3 (08:17→16:59)
[2021-08-22] MEDS: INSULIN LISPRO 100 UNIT/ML SUBCUT SCH ×3 (08:17→16:59)
[2021-08-22] MEDS: ENOXAPARIN 30 MG/0.3 ML SYRINGE SUBCUT SCH (08:21)
[2021-08-22] MEDS: GENTAMICIN INJ 500 MG in SODIUM CHLORIDE 0.9% 100 ML IV SCH (15:31)
[2021-08-22] MEDS: INSULIN GLARGINE 100 UNIT/ML SUBCUT SCH (20:23)
[2021-08-23] MEDS: VANCOMYCIN INJ 1,500 MG in SODIUM CHLORIDE 0.9% 500 ML IV SCH ×2 (02:31→13:14)
[2021-08-23] MEDS: HYDROmorphone 1 MG/1 ML SYRINGE IV PRN ×6 (02:32→21:58)
[2021-08-23] MEDS: ENOXAPARIN 30 MG/0.3 ML SYRINGE SUBCUT SCH (06:11)
[2021-08-23] MEDS: INSULIN LISPRO 100 UNIT/ML SUBCUT SCH ×3 (09:39→18:30)
[2021-08-23] MEDS: INSULIN ASPART PROTAMINE/ASPART 70/30 100 UNIT/ML SUBCUT SCH ×3 (10:05→18:11)
[2021-08-23] MEDS: GENTAMICIN INJ 500 MG in SODIUM CHLORIDE 0.9% 100 ML IV SCH (14:33)
[2021-08-23] MEDS: INSULIN GLARGINE 100 UNIT/ML SUBCUT SCH (21:58)
[2021-08-24] MEDS: VANCOMYCIN INJ 1,500 MG in SODIUM CHLORIDE 0.9% 500 ML IV SCH ×2 (00:55→12:49)
[2021-08-24] MEDS: LACTATED RINGERS 1,000 ML IV SCH (03:29)
[2021-08-24] MEDS: ENOXAPARIN 30 MG/0.3 ML SYRINGE SUBCUT SCH (04:08)
[2021-08-24 04:25] LABS: Basophils # 0.1 10*3/uL (0.0-0.2); Basophils % 0.4 % (0.0-0.8); Eosinophils # 0.4 10*3/uL (0.0-0.87); Hematocrit 26.4 VOL% (42.0-52.0); Hemoglobin 8.5 GM/DL (14.0-18.0); Immature Granulocytes % 1.3 %; Immature Granulocytes Absolute 0.16 #; Lymphocytes # 3.8 10*3/uL (1.4-4.0); Lymphocytes % 29.5 % (21.2-54.2); Mean Corpuscular HGB Conc 32.2 GM/DL (32-36); Mean Corpuscular Volume 80.7 FL (87-102); Mean Platelet Volume 9.5 FL (9.6-12.0); Monocytes # 0.8 10*3/uL (0.11-0.8); Monocytes % 6.6 % (1.7-12.7); Neutrophils % 59.2 % (38.7-73.9); Red Blood Count 3.27 MC/CUMM (3.8-5.5); Red Cell Distribution Width 16.5 % (9.3-17.3); White Blood Count 12.8 T/CUMM (4-12)
[2021-08-24 04:26] LABS: Platelet Count 434 T/CUMM (130-400)
[2021-08-24 04:27] LABS: Calcium 8.2 MG/DL (8.5-10.1); Osmolality,Calculated 278.5 MOS/KG (273-304); Potassium 3.7 MMOL/L (3.5-5.1)
[2021-08-24] MEDS: HYDROmorphone 1 MG/1 ML SYRINGE IV PRN ×6 (08:08→22:11)
[2021-08-24] MEDS: INSULIN LISPRO 100 UNIT/ML SUBCUT SCH ×3 (08:55→17:02)
[2021-08-24] MEDS: INSULIN ASPART PROTAMINE/ASPART 70/30 100 UNIT/ML SUBCUT SCH ×3 (08:55→17:02)
[2021-08-24] MEDS ORDERED: LIDOCAINE 2% 5 ML VIAL ONE ×3 (09:50→10:31)
[2021-08-24] MEDS ORDERED: MIDAZOLAM 2 MG/2 ML VIAL ONE (09:51)
[2021-08-24] MEDS ORDERED: fentaNYL 100 MCG/2 ML VIAL ONE (09:51)
[2021-08-24] MEDS ORDERED: LACTATED RINGERS 1,000 ML IV SCH (10:00)
[2021-08-24] MEDS ORDERED: BUPIVACAINE MPF 0.25% 10 ML VIAL ONE (10:08)
[2021-08-24] MEDS ORDERED: propofoL 200 MG/20 ML VIAL IV ONE (10:31)
[2021-08-24] MEDS ORDERED: PHENYLEPHRINE 1 MG/10 ML SYRINGE IV ONE (10:31)
[2021-08-24] MEDS ORDERED: SEVOFLURANE 1 UNIT/15 MINUTE INH ONE (10:32)
[2021-08-24] MEDS ORDERED: ONDANSETRON 4 MG/2 ML VIAL ONE (10:43)
[2021-08-24] MEDS ORDERED: ONDANSETRON 4 MG/2 ML VIAL IV PRN (10:56)
[2021-08-24] MEDS: GENTAMICIN INJ 500 MG in SODIUM CHLORIDE 0.9% 100 ML IV SCH (15:34)
[2021-08-24] MEDS: INSULIN GLARGINE 100 UNIT/ML SUBCUT SCH (22:11)
[2021-08-25] MEDS: HYDROmorphone 1 MG/1 ML SYRINGE IV PRN ×6 (01:14→21:14)
[2021-08-25] MEDS: VANCOMYCIN INJ 1,500 MG in SODIUM CHLORIDE 0.9% 500 ML IV SCH ×2 (02:01→14:28)
[2021-08-25] MEDS: LACTATED RINGERS 1,000 ML IV SCH ×4 (04:39→16:37)
[2021-08-25] MEDS: ENOXAPARIN 30 MG/0.3 ML SYRINGE SUBCUT SCH (04:39)
[2021-08-25] MEDS: INSULIN LISPRO 100 UNIT/ML SUBCUT SCH ×3 (08:44→16:10)
[2021-08-25] MEDS: INSULIN ASPART PROTAMINE/ASPART 70/30 100 UNIT/ML SUBCUT SCH ×3 (08:44→16:11)
[2021-08-25] MEDS: SODIUM HYPOCHLORITE 0.25% IRRIG 473 ML BOTTLE TOP SCH (14:28)
[2021-08-25] MEDS: GENTAMICIN INJ 500 MG in SODIUM CHLORIDE 0.9% 100 ML IV SCH (16:32)
[2021-08-25] MEDS: INSULIN GLARGINE 100 UNIT/ML SUBCUT SCH (21:13)
[2021-08-26] MEDS: HYDROmorphone 1 MG/1 ML SYRINGE IV PRN ×8 (00:52→23:58)
[2021-08-26] MEDS: VANCOMYCIN INJ 1,500 MG in SODIUM CHLORIDE 0.9% 500 ML IV SCH ×2 (01:12→12:54)
[2021-08-26] MEDS: ENOXAPARIN 30 MG/0.3 ML SYRINGE SUBCUT SCH (04:43)
[2021-08-26] MEDS: LACTATED RINGERS 1,000 ML IV SCH ×2 (06:44→12:54)
[2021-08-26] MEDS: INSULIN ASPART PROTAMINE/ASPART 70/30 100 UNIT/ML SUBCUT SCH (08:14)
[2021-08-26] MEDS: INSULIN LISPRO 100 UNIT/ML SUBCUT SCH ×3 (08:15→17:10)
[2021-08-26] MEDS: SODIUM HYPOCHLORITE 0.25% IRRIG 473 ML BOTTLE TOP SCH (10:16)
[2021-08-26] MEDS: COLLAGENASE OINT 30 GM TUBE TOP SCH (11:26)
[2021-08-26] MEDS: GENTAMICIN INJ 500 MG in SODIUM CHLORIDE 0.9% 100 ML IV SCH (16:40)
[2021-08-26] MEDS: INSULIN GLARGINE 100 UNIT/ML SUBCUT SCH (20:51)
[2021-08-27] MEDS: VANCOMYCIN INJ 1,500 MG in SODIUM CHLORIDE 0.9% 500 ML IV SCH (01:39)
[2021-08-27] MEDS: HYDROmorphone 1 MG/1 ML SYRINGE IV PRN ×3 (03:17→09:02)
[2021-08-27 03:38] LABS: Osmolality,Calculated 272.7 MOS/KG (273-304); Potassium 4.2 MMOL/L (3.5-5.1)
[2021-08-27] MEDS: ENOXAPARIN 30 MG/0.3 ML SYRINGE SUBCUT SCH (04:02)
[2021-08-27 07:33] VITALS: BP 142/83
[2021-08-27] MEDS: INSULIN LISPRO 100 UNIT/ML SUBCUT SCH (08:25)
[2021-08-27] MEDS: LACTATED RINGERS 1,000 ML IV SCH (08:25)
[2021-08-27] MEDS: COLLAGENASE OINT 30 GM TUBE TOP SCH (08:26)
[2021-08-27] MEDS: SODIUM HYPOCHLORITE 0.25% IRRIG 473 ML BOTTLE TOP SCH (08:27)
== END 2021-08-27 13:02 | disposition home health service (06) | DRG 951 ==
LOC: N.3E 07:20 → N.OR 07:20 → N.SDSINP 07:26 → N.3E 12:08
PROVIDERS: ADMIT Student in an Organized Health Care Education/Training Program; ATTEND Student in an Organized Health Care Education/Training Program

== ENCOUNTER 2021-10-30 19:20 | Inpatient (IN) ==
[2021-10-30] MEDS ORDERED: MORPHINE 2 MG/1 ML SYRINGE IV ONE (20:36)
[2021-10-30] MEDS ORDERED: ONDANSETRON 4 MG/2 ML VIAL IV ONE ×2 (20:36→21:55)
[2021-10-30] MEDS ORDERED: SODIUM CHLORIDE 0.9% 2,500 ML IV STA (20:36)
[2021-10-30 21:12] LABS: Albumin 1.9 G/DL (3.4-5.0); Bilirubin,Total 0.9 MG/DL (0.20-1.00); Calcium 9.4 MG/DL (8.5-10.1); Osmolality,Calculated 271.7 MOS/KG (273-304); Potassium 3.3 MMOL/L (3.5-5.1); Total Protein 8.3 G/DL (6.4-8.2)
[2021-10-30 21:43] LABS: Basophils % 0.1 % (0.0-0.8); Eosinophils % 0.1 % (0.00-10.9); Hematocrit 25.2 VOL% (42.0-52.0); Hemoglobin 8.5 GM/DL (14.0-18.0); Immature Granulocytes % 0.9 %; Immature Granulocytes Absolute 0.12 #; Lymphocytes # 1.9 10*3/uL (1.4-4.0); Lymphocytes % 13.6 % (21.2-54.2); Mean Corpuscular HGB Conc 33.7 GM/DL (32-36); Mean Corpuscular Volume 78.5 FL (87-102); Mean Platelet Volume 9.5 FL (9.6-12.0); Monocytes # 1.4 10*3/uL (0.11-0.8); Neutrophils % 75.3 % (38.7-73.9); Platelet Count 410 T/CUMM (130-400); Red Blood Count 3.21 MC/CUMM (3.8-5.5); Red Cell Distribution Width 15.7 % (9.3-17.3)
[2021-10-30 21:51] LABS: INR 1.1; PT Patient Result 12.2 SECS (10.1-12.1)
[2021-10-30] MEDS ORDERED: VANCOMYCIN INJ 1,000 MG in SODIUM CHLORIDE 0.9% 250 ML IV STA (21:55)
[2021-10-30 22:13] LABS: Lymphocytes 7 % (20-55); Platelet Estimate Increased; Total Cells Counted 100
[2021-10-30 22:14] LABS: Hypochromia Slight; Microcytosis Slight
[2021-10-30] MEDS ORDERED: PIPERACILLIN/TAZOBACTAM 3,375 MG in SODIUM CHLORIDE 0.9% 100 ML IV STA (22:45)
[2021-10-30] MEDS ORDERED: DEXTROSE 10% 250 ML BAG IV PRN (22:50)
[2021-10-30] MEDS ORDERED: GLUCAGON 1 MG VIAL IM PRN (22:50)
[2021-10-30] MEDS ORDERED: hydrALAZINE 20 MG/1 ML VIAL IV PRN (22:58)
[2021-10-31] MEDS: MORPHINE 2 MG/1 ML SYRINGE IV PRN ×5 (01:11→22:33)
[2021-10-31] MEDS: SODIUM CHLORIDE 0.9% 1,000 ML IV SCH ×3 (01:55→22:23)
[2021-10-31] MEDS: ONDANSETRON 4 MG/2 ML VIAL IV PRN ×3 (02:25→17:11)
[2021-10-31] MEDS ORDERED: PROMETHAZINE INJ 12.5 MG in SODIUM CHLORIDE 0.9% 50 ML IV PRN (04:41)
[2021-10-31 05:09] LABS: Basophils % 0.1 % (0.0-0.8); Eosinophils % 0.2 % (0.00-10.9); Hematocrit 24.7 VOL% (42.0-52.0); Immature Granulocytes % 0.6 %; Immature Granulocytes Absolute 0.08 #; Lymphocytes # 1.9 10*3/uL (1.4-4.0); Lymphocytes % 14.6 % (21.2-54.2); Mean Corpuscular HGB Conc 32.4 GM/DL (32-36); Mean Corpuscular Volume 81.3 FL (87-102); Mean Platelet Volume 9.5 FL (9.6-12.0); Monocytes # 1.4 10*3/uL (0.11-0.8); Monocytes % 10.9 % (1.7-12.7); Neutrophils % 73.6 % (38.7-73.9); Platelet Count 395 T/CUMM (130-400); Red Blood Count 3.04 MC/CUMM (3.8-5.5); Red Cell Distribution Width 15.9 % (9.3-17.3)
[2021-10-31 05:44] LABS: Albumin 1.6 G/DL (3.4-5.0); Bilirubin,Total 0.9 MG/DL (0.20-1.00); Calcium 8.8 MG/DL (8.5-10.1); Osmolality,Calculated 279.1 MOS/KG (273-304); Potassium 3.5 MMOL/L (3.5-5.1); Risk Ratio 4.94; Thyroid Stimulating Hormone 0.25 uIU/ml (0.358-3.74); Total Protein 7.2 G/DL (6.4-8.2); VLDL Cholesterol 20.8 MG/DL
[2021-10-31] MEDS: METOCLOPRAMIDE 10 MG TABLET PO SCH ×3 (06:25→22:45)
[2021-10-31] MEDS: INSULIN LISPRO 100 UNIT/ML SUBCUT SCH ×4 (09:06→22:25)
[2021-10-31] MEDS: PANTOPRAZOLE 40 MG TABLET PO SCH (09:07)
[2021-10-31] MEDS: PIPERACILLIN/TAZOBACTAM 3,375 MG in SODIUM CHLORIDE 0.9% 100 ML IV SCH ×2 (09:07→17:11)
[2021-10-31] MEDS: VANCOMYCIN INJ 1,250 MG in SODIUM CHLORIDE 0.9% 250 ML IV SCH ×2 (11:52→22:24)
[2021-10-31] MEDS ORDERED: chlorproMAZINE 25 MG TABLET PO PRN (17:52)
[2021-11-01] MEDS: PIPERACILLIN/TAZOBACTAM 3,375 MG in SODIUM CHLORIDE 0.9% 100 ML IV SCH ×3 (01:06→17:04)
[2021-11-01] MEDS: MORPHINE 2 MG/1 ML SYRINGE IV PRN ×4 (03:32→17:11)
[2021-11-01] MEDS: METOCLOPRAMIDE 10 MG TABLET PO SCH ×3 (06:49→21:02)
[2021-11-01] MEDS: INSULIN LISPRO 100 UNIT/ML SUBCUT SCH ×4 (10:40→21:01)
[2021-11-01] MEDS: PANTOPRAZOLE 40 MG TABLET PO SCH (10:41)
[2021-11-01] MEDS: VANCOMYCIN INJ 1,250 MG in SODIUM CHLORIDE 0.9% 250 ML IV SCH ×2 (10:41→22:33)
[2021-11-01] MEDS: HYDROmorphone 1 MG/1 ML SYRINGE IV PRN ×2 (20:06→23:02)
[2021-11-01] MEDS ORDERED: ACETAMINOPHEN 325 MG TABLET PO PRN (20:38)
[2021-11-01] MEDS ORDERED: INSULIN GLARGINE 100 UNIT/ML SUBCUT SCH (21:00)
[2021-11-02] MEDS: PIPERACILLIN/TAZOBACTAM 3,375 MG in SODIUM CHLORIDE 0.9% 100 ML IV SCH ×3 (01:17→17:48)
[2021-11-02] MEDS: HYDROmorphone 1 MG/1 ML SYRINGE IV PRN ×7 (02:07→21:02)
[2021-11-02 05:39] LABS: Basophils % 0.2 % (0.0-0.8); Eosinophils # 0.2 10*3/uL (0.0-0.87); Eosinophils % 1.6 % (0.00-10.9); Hematocrit 24.1 VOL% (42.0-52.0); Hemoglobin 7.9 GM/DL (14.0-18.0); Immature Granulocytes % 2.6 %; Immature Granulocytes Absolute 0.38 #; Lymphocytes # 2.8 10*3/uL (1.4-4.0); Lymphocytes % 19.6 % (21.2-54.2); Mean Corpuscular HGB Conc 32.8 GM/DL (32-36); Mean Corpuscular Volume 80.3 FL (87-102); Mean Platelet Volume 9.7 FL (9.6-12.0); Monocytes # 0.9 10*3/uL (0.11-0.8); Monocytes % 6.3 % (1.7-12.7); Neutrophils % 69.7 % (38.7-73.9); Platelet Count 459 T/CUMM (130-400); Red Cell Distribution Width 15.4 % (9.3-17.3); White Blood Count 14.3 T/CUMM (4-12)
[2021-11-02] MEDS: METOCLOPRAMIDE 10 MG TABLET PO SCH ×3 (05:41→21:03)
[2021-11-02 05:59] LABS: Calcium 8.5 MG/DL (8.5-10.1); Osmolality,Calculated 277.2 MOS/KG (273-304); Potassium 3.2 MMOL/L (3.5-5.1)
[2021-11-02 06:12] LABS: Eosinophils 3 % (0-10); Hypochromia 1+; Lymphocytes 16 % (20-55); Microcytosis 1+; Platelet Estimate Adequate; Total Cells Counted 100
[2021-11-02] MEDS: INSULIN LISPRO 100 UNIT/ML SUBCUT SCH ×4 (08:56→21:01)
[2021-11-02] MEDS: PANTOPRAZOLE 40 MG TABLET PO SCH (09:52)
[2021-11-02] MEDS ORDERED: MIDAZOLAM 2 MG/2 ML VIAL ONE (10:10)
[2021-11-02] MEDS ORDERED: fentaNYL 100 MCG/2 ML VIAL ONE ×2 (10:10→10:44)
[2021-11-02] MEDS ORDERED: propofoL 200 MG/20 ML VIAL IV ONE (10:10)
[2021-11-02] MEDS ORDERED: LIDOCAINE 2% 5 ML VIAL ONE (10:10)
[2021-11-02] MEDS ORDERED: SEVOFLURANE 1 UNIT/15 MINUTE INH ONE (10:11)
[2021-11-02] MEDS ORDERED: ONDANSETRON 4 MG/2 ML VIAL ONE (10:11)
[2021-11-02] MEDS ORDERED: DEXTROSE 10% 250 ML BAG IV PRN (10:58)
[2021-11-02] MEDS ORDERED: ONDANSETRON 4 MG/2 ML VIAL IV PRN (11:13)
[2021-11-02] MEDS: VANCOMYCIN INJ 1,250 MG in SODIUM CHLORIDE 0.9% 250 ML IV SCH ×2 (12:20→22:53)
[2021-11-02] MEDS: INSULIN GLARGINE 100 UNIT/ML SUBCUT SCH (21:01)
[2021-11-03] MEDS: PIPERACILLIN/TAZOBACTAM 3,375 MG in SODIUM CHLORIDE 0.9% 100 ML IV SCH ×2 (01:00→09:40)
[2021-11-03] MEDS: HYDROmorphone 1 MG/1 ML SYRINGE IV PRN ×6 (04:00→23:45)
[2021-11-03 05:17] LABS: Basophils % 0.2 % (0.0-0.8); Eosinophils # 0.3 10*3/uL (0.0-0.87); Eosinophils % 1.8 % (0.00-10.9); Hematocrit 23.5 VOL% (42.0-52.0); Hemoglobin 7.4 GM/DL (14.0-18.0); Immature Granulocytes % 1.9 %; Immature Granulocytes Absolute 0.28 #; Lymphocytes # 2.6 10*3/uL (1.4-4.0); Mean Corpuscular HGB Conc 31.5 GM/DL (32-36); Mean Corpuscular Volume 81.6 FL (87-102); Mean Platelet Volume 9.4 FL (9.6-12.0); Monocytes # 0.8 10*3/uL (0.11-0.8); Monocytes % 5.4 % (1.7-12.7); Neutrophils % 72.7 % (38.7-73.9); Platelet Count 463 T/CUMM (130-400); Red Blood Count 2.88 MC/CUMM (3.8-5.5); Red Cell Distribution Width 15.8 % (9.3-17.3); White Blood Count 14.6 T/CUMM (4-12)
[2021-11-03 05:51] LABS: Calcium 8.6 MG/DL (8.5-10.1); Osmolality,Calculated 276.1 MOS/KG (273-304); Potassium 3.2 MMOL/L (3.5-5.1)
[2021-11-03] MEDS: METOCLOPRAMIDE 10 MG TABLET PO SCH ×4 (05:55→20:29)
[2021-11-03] MEDS ORDERED: sitaGLIPtin 100 MG TABLET PO SCH (09:00)
[2021-11-03] MEDS: INSULIN LISPRO 100 UNIT/ML SUBCUT SCH ×5 (09:48→21:44)
[2021-11-03] MEDS: DAPAGLIFLOZIN 10 MG TABLET PO SCH (09:49)
[2021-11-03] MEDS: POTASSIUM CHLORIDE 20 MEQ TABLET PO SCH ×2 (09:49→20:30)
[2021-11-03] MEDS: PANTOPRAZOLE 40 MG TABLET PO SCH (09:50)
[2021-11-03] MEDS: CHOLECALCIFEROL 1,000 UNIT TABLET PO SCH (09:50)
[2021-11-03] MEDS: oxyCODONE/ACETAMINOPHEN 5-325 MG TABLET PO PRN (12:30)
[2021-11-03] MEDS: metFORMIN 500 MG TABLET PO SCH (16:44)
[2021-11-03] MEDS: INSULIN GLARGINE 100 UNIT/ML SUBCUT SCH (21:45)
[2021-11-04] MEDS: oxyCODONE/ACETAMINOPHEN 5-325 MG TABLET PO PRN ×3 (03:05→14:50)
[2021-11-04 06:03] LABS: Basophils # 0.1 10*3/uL (0.0-0.2); Basophils % 0.3 % (0.0-0.8); Eosinophils # 0.3 10*3/uL (0.0-0.87); Eosinophils % 1.9 % (0.00-10.9); Hematocrit 24.2 VOL% (42.0-52.0); Hemoglobin 7.8 GM/DL (14.0-18.0); Immature Granulocytes % 1.6 %; Immature Granulocytes Absolute 0.28 #; Lymphocytes # 2.8 10*3/uL (1.4-4.0); Lymphocytes % 15.9 % (21.2-54.2); Mean Corpuscular HGB Conc 32.2 GM/DL (32-36); Mean Corpuscular Volume 80.4 FL (87-102); Mean Platelet Volume 9.2 FL (9.6-12.0); Monocytes # 0.9 10*3/uL (0.11-0.8); Monocytes % 5.2 % (1.7-12.7); Neutrophils % 75.1 % (38.7-73.9); Platelet Count 527 T/CUMM (130-400); Red Blood Count 3.01 MC/CUMM (3.8-5.5); Red Cell Distribution Width 15.8 % (9.3-17.3); White Blood Count 17.3 T/CUMM (4-12)
[2021-11-04 06:17] LABS: Potassium 3.3 MMOL/L (3.5-5.1)
[2021-11-04] MEDS: HYDROmorphone 1 MG/1 ML SYRINGE IV PRN ×5 (06:49→21:38)
[2021-11-04] MEDS: INSULIN LISPRO 100 UNIT/ML SUBCUT SCH ×4 (08:12→21:39)
[2021-11-04] MEDS: CHOLECALCIFEROL 1,000 UNIT TABLET PO SCH (08:49)
[2021-11-04] MEDS: PANTOPRAZOLE 40 MG TABLET PO SCH (08:49)
[2021-11-04] MEDS: POTASSIUM CHLORIDE 20 MEQ TABLET PO SCH ×3 (08:49→21:31)
[2021-11-04] MEDS: metFORMIN 500 MG TABLET PO SCH ×2 (08:49→17:50)
[2021-11-04] MEDS: DAPAGLIFLOZIN 10 MG TABLET PO SCH (08:49)
[2021-11-04] MEDS ORDERED: ERGOCALCIFEROL 50,000 UNIT CAPSULE PO ONE (09:00)
[2021-11-04] MEDS ORDERED: INSULIN GLARGINE 100 UNIT/ML SUBCUT SCH (21:00)
[2021-11-05] MEDS: HYDROmorphone 1 MG/1 ML SYRINGE IV PRN ×3 (01:46→12:35)
[2021-11-05 05:55] LABS: Basophils % 0.2 % (0.0-0.8); Eosinophils # 0.3 10*3/uL (0.0-0.87); Eosinophils % 1.4 % (0.00-10.9); Hematocrit 25.1 VOL% (42.0-52.0); Hemoglobin 8.1 GM/DL (14.0-18.0); Immature Granulocytes % 1.3 %; Immature Granulocytes Absolute 0.23 #; Lymphocytes # 2.6 10*3/uL (1.4-4.0); Lymphocytes % 14.7 % (21.2-54.2); Mean Corpuscular HGB Conc 32.3 GM/DL (32-36); Mean Corpuscular Volume 80.7 FL (87-102); Monocytes # 0.9 10*3/uL (0.11-0.8); Monocytes % 4.9 % (1.7-12.7); Neutrophils % 77.5 % (38.7-73.9); Platelet Count 561 T/CUMM (130-400); Red Blood Count 3.11 MC/CUMM (3.8-5.5); Red Cell Distribution Width 15.8 % (9.3-17.3); White Blood Count 17.8 T/CUMM (4-12)
[2021-11-05 06:25] LABS: Calcium 8.9 MG/DL (8.5-10.1); Potassium 4.1 MMOL/L (3.5-5.1)
[2021-11-05] MEDS: INSULIN LISPRO 100 UNIT/ML SUBCUT SCH ×2 (08:07→11:44)
[2021-11-05] MEDS: DAPAGLIFLOZIN 10 MG TABLET PO SCH (09:25)
[2021-11-05] MEDS: PANTOPRAZOLE 40 MG TABLET PO SCH (09:25)
[2021-11-05] MEDS: CHOLECALCIFEROL 1,000 UNIT TABLET PO SCH (09:26)
[2021-11-05] MEDS: metFORMIN 500 MG TABLET PO SCH (09:26)
[2021-11-05] MEDS ORDERED: ERGOCALCIFEROL 50,000 UNIT CAPSULE PO ONE (11:00)
[2021-11-05] MEDS ORDERED: lisinopriL 5 MG TABLET PO SCH (11:00)
[2021-11-05] MEDS ORDERED: POTASSIUM CHLORIDE 20 MEQ TABLET PO SCH (11:00)
[2021-11-05 11:46] VITALS: BP 161/86
[2021-11-05] MEDS ORDERED: INSULIN GLARGINE 100 UNIT/ML SUBCUT SCH (21:00)
== END 2021-11-05 15:07 | disposition home health service (06) | DRG 313 ==
LOC: N.ED 19:20 → SUATTDRO 22:50 → N.5E 22:50
PROVIDERS: ADMIT Internal Medicine Geriatric Medicine; ATTEND Hospitalist

== ENCOUNTER 2021-12-04 13:32 | Inpatient (IN) ==
[2021-12-04] MEDS ORDERED: SODIUM CHLORIDE 0.9% 1,000 ML IV STA (14:15)
[2021-12-04] MEDS ORDERED: HYDROmorphone 1 MG/1 ML SYRINGE IV STA (14:37)
[2021-12-04] MEDS ORDERED: ONDANSETRON 4 MG/2 ML VIAL IV STA (14:37)
[2021-12-04] MEDS ORDERED: INSULIN LISPRO 100 UNIT/ML SUBCUT STA (14:38)
[2021-12-04 15:03] LABS: Basophils % 0.4 % (0.0-0.8); Eosinophils % 0.6 % (0.00-10.9); Hematocrit 28.5 VOL% (42.0-52.0); Hemoglobin 9.3 GM/DL (14.0-18.0); Immature Granulocytes % 0.4 %; Immature Granulocytes Absolute 0.02 #; Lymphocytes # 1.3 10*3/uL (1.4-4.0); Lymphocytes % 24.5 % (21.2-54.2); Mean Corpuscular HGB Conc 32.6 GM/DL (32-36); Mean Corpuscular Volume 77.7 FL (87-102); Mean Platelet Volume 9.3 FL (9.6-12.0); Monocytes # 0.5 10*3/uL (0.11-0.8); Monocytes % 9.9 % (1.7-12.7); Neutrophils % 64.2 % (38.7-73.9); Platelet Count 461 T/CUMM (130-400); Red Blood Count 3.67 MC/CUMM (3.8-5.5); Red Cell Distribution Width 14.4 % (9.3-17.3); White Blood Count 5.3 T/CUMM (4-12)
[2021-12-04 15:15] LABS: Calcium 9.3 MG/DL (8.5-10.1); Osmolality,Calculated 279.4 MOS/KG (273-304); Potassium 3.8 MMOL/L (3.5-5.1)
[2021-12-04] MEDS ORDERED: VANCOMYCIN INJ 1,250 MG in SODIUM CHLORIDE 0.9% 250 ML IV STA (15:54)
[2021-12-04] MEDS ORDERED: GLUCAGON 1 MG VIAL IM PRN (15:57)
[2021-12-04] MEDS ORDERED: DOCUSATE SODIUM 100 MG CAPSULE PO PRN (15:57)
[2021-12-04] MEDS ORDERED: traZODone 50 MG TABLET PO PRN (15:57)
[2021-12-04 16:06] LABS: Sedimentation Rate-Westergren 73 MM/HR (0-15)
[2021-12-04] MEDS ORDERED: INSULIN GLARGINE 100 UNIT/ML SUBCUT STA (16:13)
[2021-12-04] MEDS ORDERED: DEXTROSE 10% 250 ML BAG IV PRN (16:17)
[2021-12-04] MEDS: HYDROmorphone 1 MG/1 ML SYRINGE IV PRN ×3 (16:29→23:23)
[2021-12-04] MEDS: ONDANSETRON 4 MG/2 ML VIAL IV PRN ×2 (16:29→19:55)
[2021-12-04] MEDS: SODIUM CHLORIDE 0.45% 1,000 ML IV SCH (17:00)
[2021-12-04] MEDS: INSULIN REGULAR 100 UNIT/ML SUBCUT SCH ×2 (17:30→20:58)
[2021-12-04 17:42] LABS: Urine Appearance Clear (Clear); Urine Color Yellow (Yellow); Urine pH 6.5 (4.5-8.0)
[2021-12-04 17:43] LABS: Bilirubin,Urine Negative (Negative); Blood, Urine Small mg/dL (Negative); Glucose,Urine (UA) >=1000 mg/dL (Negative); Ketones,Urine Negative (Negative); Nitrite,Urine Negative (Negative); Protein,Urine 30 mg/dL (Negative); Urine Urobilinogen 0.2 eU/dL (<2.0)
[2021-12-04 17:45] LABS: Mucus,Urine Occasional /LPF (Occasional); RBC,Urine 1 /HPF (0-4)
[2021-12-04] MEDS: ENOXAPARIN 40 MG/0.4 ML SYRINGE SUBCUT SCH (20:57)
[2021-12-04] MEDS: INSULIN GLARGINE 100 UNIT/ML SUBCUT SCH (20:59)
[2021-12-05] MEDS: ONDANSETRON 4 MG/2 ML VIAL IV PRN (02:19)
[2021-12-05] MEDS: HYDROmorphone 1 MG/1 ML SYRINGE IV PRN ×7 (02:22→23:52)
[2021-12-05 05:36] LABS: Basophils % 0.3 % (0.0-0.8); Eosinophils # 0.1 10*3/uL (0.0-0.87); Eosinophils % 0.9 % (0.00-10.9); Hematocrit 25.1 VOL% (42.0-52.0); Immature Granulocytes % 0.5 %; Immature Granulocytes Absolute 0.04 #; Lymphocytes # 2.6 10*3/uL (1.4-4.0); Lymphocytes % 33.8 % (21.2-54.2); Mean Corpuscular HGB Conc 31.9 GM/DL (32-36); Mean Corpuscular Volume 79.4 FL (87-102); Mean Platelet Volume 9.7 FL (9.6-12.0); Monocytes # 0.7 10*3/uL (0.11-0.8); Monocytes % 9.7 % (1.7-12.7); Neutrophils % 54.8 % (38.7-73.9); Platelet Count 401 T/CUMM (130-400); Red Blood Count 3.16 MC/CUMM (3.8-5.5); Red Cell Distribution Width 14.4 % (9.3-17.3); White Blood Count 7.6 T/CUMM (4-12)
[2021-12-05 05:59] LABS: Hypochromia 1+; Microcytosis 1+
[2021-12-05 06:15] LABS: Calcium 8.4 MG/DL (8.5-10.1); Osmolality,Calculated 267.2 MOS/KG (273-304); Potassium 3.6 MMOL/L (3.5-5.1)
[2021-12-05] MEDS: SODIUM CHLORIDE 0.45% 1,000 ML IV SCH ×2 (06:18→18:11)
[2021-12-05] MEDS: PANTOPRAZOLE 40 MG VIAL IV SCH (08:42)
[2021-12-05] MEDS: INSULIN REGULAR 100 UNIT/ML SUBCUT SCH ×4 (09:10→20:52)
[2021-12-05] MEDS: INSULIN GLARGINE 100 UNIT/ML SUBCUT SCH (20:53)
[2021-12-05] MEDS: ENOXAPARIN 40 MG/0.4 ML SYRINGE SUBCUT SCH (20:54)
[2021-12-06] MEDS: HYDROmorphone 1 MG/1 ML SYRINGE IV PRN ×5 (03:48→21:47)
[2021-12-06 06:03] LABS: Basophils % 0.3 % (0.0-0.8); Eosinophils # 0.1 10*3/uL (0.0-0.87); Eosinophils % 1.1 % (0.00-10.9); Hematocrit 24.5 VOL% (42.0-52.0); Immature Granulocytes % 0.5 %; Immature Granulocytes Absolute 0.04 #; Lymphocytes # 2.1 10*3/uL (1.4-4.0); Mean Corpuscular HGB Conc 32.7 GM/DL (32-36); Mean Corpuscular Volume 78.5 FL (87-102); Mean Platelet Volume 9.5 FL (9.6-12.0); Monocytes # 0.5 10*3/uL (0.11-0.8); Monocytes % 6.9 % (1.7-12.7); Neutrophils % 63.2 % (38.7-73.9); Platelet Count 372 T/CUMM (130-400); Red Blood Count 3.12 MC/CUMM (3.8-5.5); Red Cell Distribution Width 14.3 % (9.3-17.3); White Blood Count 7.4 T/CUMM (4-12)
[2021-12-06] MEDS: SODIUM CHLORIDE 0.45% 1,000 ML IV SCH (06:16)
[2021-12-06 06:25] LABS: Calcium 8.4 MG/DL (8.5-10.1); Osmolality,Calculated 272.5 MOS/KG (273-304); Potassium 3.8 MMOL/L (3.5-5.1)
[2021-12-06] MEDS: INSULIN REGULAR 100 UNIT/ML SUBCUT SCH ×4 (08:26→20:39)
[2021-12-06] MEDS: PANTOPRAZOLE 40 MG VIAL IV SCH (08:27)
[2021-12-06] MEDS ORDERED: LIDOCAINE 1% 20 ML VIAL MISC INJ ONE (09:57)
[2021-12-06 10:34] LABS: Lymphocytes,Synovial Fluid 1 %; Neutrophils,Synovial Fluid 99 %
[2021-12-06] MEDS: NICOTINE 21 MG/24 HR PATCH TRANSDERM SCH (12:28)
[2021-12-06] MEDS: PIPERACILLIN/TAZOBACTAM 3,375 MG in SODIUM CHLORIDE 0.9% 100 ML IV SCH ×2 (13:24→21:46)
[2021-12-06] MEDS ORDERED: fentaNYL 100 MCG/2 ML VIAL ONE (15:40)
[2021-12-06] MEDS ORDERED: propofoL 200 MG/20 ML VIAL IV ONE (15:40)
[2021-12-06] MEDS ORDERED: LIDOCAINE 2% 5 ML VIAL ONE (15:40)
[2021-12-06] MEDS ORDERED: MIDAZOLAM 2 MG/2 ML VIAL ONE (15:41)
[2021-12-06] MEDS ORDERED: LACTATED RINGERS 1,000 ML IV ONE (15:47)
[2021-12-06] MEDS ORDERED: PHENYLEPHRINE 1 MG/10 ML SYRINGE IV ONE (16:02)
[2021-12-06] MEDS ORDERED: ONDANSETRON 4 MG/2 ML VIAL ONE (16:20)
[2021-12-06] MEDS ORDERED: ACETAMINOPHEN INJ 1,000 MG/100 ML VIAL IV ONE (16:25)
[2021-12-06] MEDS ORDERED: SEVOFLURANE 1 UNIT/15 MINUTE INH ONE (16:30)
[2021-12-06] MEDS: ENOXAPARIN 40 MG/0.4 ML SYRINGE SUBCUT SCH (20:39)
[2021-12-06] MEDS ORDERED: INSULIN GLARGINE 100 UNIT/ML SUBCUT SCH (21:00)
[2021-12-07] MEDS: HYDROmorphone 1 MG/1 ML SYRINGE IV PRN ×8 (01:15→22:58)
[2021-12-07] MEDS: PIPERACILLIN/TAZOBACTAM 3,375 MG in SODIUM CHLORIDE 0.9% 100 ML IV SCH ×3 (04:55→20:49)
[2021-12-07] MEDS: SODIUM CHLORIDE 0.45% 1,000 ML IV SCH ×2 (05:22→09:38)
[2021-12-07 06:18] LABS: Basophils % 0.2 % (0.0-0.8); Eosinophils # 0.1 10*3/uL (0.0-0.87); Eosinophils % 1.5 % (0.00-10.9); Hematocrit 24.9 VOL% (42.0-52.0); Immature Granulocytes % 0.5 %; Immature Granulocytes Absolute 0.04 #; Lymphocytes # 3.2 10*3/uL (1.4-4.0); Lymphocytes % 39.1 % (21.2-54.2); Mean Corpuscular HGB Conc 32.1 GM/DL (32-36); Mean Corpuscular Volume 79.6 FL (87-102); Mean Platelet Volume 9.7 FL (9.6-12.0); Monocytes # 0.6 10*3/uL (0.11-0.8); Neutrophils % 51.7 % (38.7-73.9); Platelet Count 376 T/CUMM (130-400); Red Blood Count 3.13 MC/CUMM (3.8-5.5); Red Cell Distribution Width 14.3 % (9.3-17.3); White Blood Count 8.2 T/CUMM (4-12)
[2021-12-07 06:47] LABS: Hypochromia Slight; Microcytosis Slight; Platelet Estimate Normal
[2021-12-07 07:04] LABS: Calcium 8.4 MG/DL (8.5-10.1); Osmolality,Calculated 277.1 MOS/KG (273-304)
[2021-12-07] MEDS: INSULIN REGULAR 100 UNIT/ML SUBCUT SCH ×4 (07:48→20:50)
[2021-12-07] MEDS: NICOTINE 21 MG/24 HR PATCH TRANSDERM SCH (09:01)
[2021-12-07] MEDS: PANTOPRAZOLE 40 MG VIAL IV SCH (09:03)
[2021-12-07] MEDS: DAPAGLIFLOZIN 10 MG TABLET PO SCH (13:20)
[2021-12-07] MEDS: metFORMIN 500 MG TABLET PO SCH (16:50)
[2021-12-07] MEDS: INSULIN NPH 100 UNIT/ML SUBCUT SCH (17:39)
[2021-12-07] MEDS: ENOXAPARIN 40 MG/0.4 ML SYRINGE SUBCUT SCH (20:50)
[2021-12-08] MEDS: HYDROmorphone 1 MG/1 ML SYRINGE IV PRN ×8 (02:08→22:30)
[2021-12-08] MEDS: PIPERACILLIN/TAZOBACTAM 3,375 MG in SODIUM CHLORIDE 0.9% 100 ML IV SCH ×3 (04:39→21:29)
[2021-12-08 05:06] LABS: Basophils % 0.3 % (0.0-0.8); Eosinophils # 0.2 10*3/uL (0.0-0.87); Eosinophils % 1.6 % (0.00-10.9); Hematocrit 25.9 VOL% (42.0-52.0); Hemoglobin 8.1 GM/DL (14.0-18.0); Immature Granulocytes % 0.8 %; Immature Granulocytes Absolute 0.08 #; Lymphocytes # 3.5 10*3/uL (1.4-4.0); Lymphocytes % 34.2 % (21.2-54.2); Mean Corpuscular HGB Conc 31.3 GM/DL (32-36); Mean Corpuscular Volume 81.2 FL (87-102); Mean Platelet Volume 9.6 FL (9.6-12.0); Monocytes # 0.6 10*3/uL (0.11-0.8); Monocytes % 5.4 % (1.7-12.7); Neutrophils % 57.7 % (38.7-73.9); Platelet Count 445 T/CUMM (130-400); Red Blood Count 3.19 MC/CUMM (3.8-5.5); Red Cell Distribution Width 14.4 % (9.3-17.3); White Blood Count 10.2 T/CUMM (4-12)
[2021-12-08 05:25] LABS: Calcium 9.1 MG/DL (8.5-10.1); Osmolality,Calculated 273.8 MOS/KG (273-304); Potassium 4.2 MMOL/L (3.5-5.1)
[2021-12-08] MEDS: INSULIN REGULAR 100 UNIT/ML SUBCUT SCH ×4 (07:25→21:27)
[2021-12-08] MEDS: INSULIN NPH 100 UNIT/ML SUBCUT SCH ×2 (07:36→16:15)
[2021-12-08] MEDS: SODIUM CHLORIDE 0.45% 1,000 ML IV SCH ×2 (07:37→10:56)
[2021-12-08] MEDS: DAPAGLIFLOZIN 10 MG TABLET PO SCH (08:20)
[2021-12-08] MEDS: PANTOPRAZOLE 40 MG VIAL IV SCH (08:20)
[2021-12-08] MEDS: metFORMIN 500 MG TABLET PO SCH ×2 (08:20→17:12)
[2021-12-08] MEDS: NICOTINE 21 MG/24 HR PATCH TRANSDERM SCH (09:17)
[2021-12-08] MEDS: ENOXAPARIN 40 MG/0.4 ML SYRINGE SUBCUT SCH (21:28)
[2021-12-09] MEDS: HYDROmorphone 1 MG/1 ML SYRINGE IV PRN ×7 (01:22→21:11)
[2021-12-09] MEDS: SODIUM CHLORIDE 0.45% 1,000 ML IV SCH ×2 (01:38→21:09)
[2021-12-09] MEDS: PIPERACILLIN/TAZOBACTAM 3,375 MG in SODIUM CHLORIDE 0.9% 100 ML IV SCH ×3 (04:39→21:07)
[2021-12-09 06:02] LABS: Basophils % 0.4 % (0.0-0.8); Eosinophils # 0.2 10*3/uL (0.0-0.87); Eosinophils % 2.8 % (0.00-10.9); Hemoglobin 7.4 GM/DL (14.0-18.0); Immature Granulocytes % 0.8 %; Immature Granulocytes Absolute 0.07 #; Lymphocytes # 3.6 10*3/uL (1.4-4.0); Lymphocytes % 42.3 % (21.2-54.2); Mean Corpuscular HGB Conc 32.2 GM/DL (32-36); Mean Corpuscular Volume 78.8 FL (87-102); Mean Platelet Volume 9.8 FL (9.6-12.0); Monocytes # 0.4 10*3/uL (0.11-0.8); Monocytes % 4.9 % (1.7-12.7); Neutrophils % 48.8 % (38.7-73.9); Platelet Count 432 T/CUMM (130-400); Red Blood Count 2.92 MC/CUMM (3.8-5.5); Red Cell Distribution Width 14.6 % (9.3-17.3); White Blood Count 8.5 T/CUMM (4-12)
[2021-12-09 06:23] LABS: Calcium 8.3 MG/DL (8.5-10.1); Osmolality,Calculated 270.8 MOS/KG (273-304); Potassium 3.4 MMOL/L (3.5-5.1)
[2021-12-09] MEDS: INSULIN NPH 100 UNIT/ML SUBCUT SCH ×2 (07:36→18:00)
[2021-12-09] MEDS: INSULIN REGULAR 100 UNIT/ML SUBCUT SCH ×4 (07:36→21:09)
[2021-12-09] MEDS ORDERED: POTASSIUM CHLORIDE 20 MEQ TABLET PO ONE (08:30)
[2021-12-09] MEDS: metFORMIN 500 MG TABLET PO SCH ×2 (08:42→17:59)
[2021-12-09] MEDS: DAPAGLIFLOZIN 10 MG TABLET PO SCH (08:42)
[2021-12-09] MEDS: PANTOPRAZOLE 40 MG VIAL IV SCH (08:42)
[2021-12-09] MEDS: NICOTINE 21 MG/24 HR PATCH TRANSDERM SCH (08:43)
[2021-12-09 09:12] LABS: Basophils % 0.4 % (0.0-0.8); Eosinophils # 0.2 10*3/uL (0.0-0.87); Eosinophils % 2.5 % (0.00-10.9); Hematocrit 30.5 VOL% (42.0-52.0); Immature Granulocytes % 0.8 %; Immature Granulocytes Absolute 0.06 #; Lymphocytes # 2.9 10*3/uL (1.4-4.0); Lymphocytes % 36.5 % (21.2-54.2); Mean Corpuscular HGB Conc 31.8 GM/DL (32-36); Mean Corpuscular Volume 79.4 FL (87-102); Mean Platelet Volume 9.2 FL (9.6-12.0); Monocytes # 0.4 10*3/uL (0.11-0.8); Monocytes % 4.6 % (1.7-12.7); Neutrophils % 55.2 % (38.7-73.9); Platelet Count 435 T/CUMM (130-400); Red Cell Distribution Width 14.8 % (9.3-17.3)
[2021-12-09 09:13] LABS: Red Blood Count 3.84 MC/CUMM (3.8-5.5)
[2021-12-09 09:14] LABS: Hemoglobin 9.7 GM/DL (14.0-18.0)
[2021-12-09 09:30] LABS: Folate 4.85 NG/ML (5.38-24.0); Vitamin B12 508 PG/ML (211-911)
[2021-12-09 09:36] LABS: % Iron Saturation 19.3 % (18-50); Ferritin 247.8 ng/mL (26-388)
[2021-12-09 10:19] LABS: Sedimentation Rate-Westergren 113 MM/HR (0-15)
[2021-12-09] MEDS ORDERED: SODIUM CHLORIDE 0.9% 1,000 ML IV PRN (10:54)
[2021-12-09] MEDS: ENOXAPARIN 40 MG/0.4 ML SYRINGE SUBCUT SCH (21:10)
[2021-12-10] MEDS: HYDROmorphone 1 MG/1 ML SYRINGE IV PRN ×7 (03:18→21:40)
[2021-12-10] MEDS: PIPERACILLIN/TAZOBACTAM 3,375 MG in SODIUM CHLORIDE 0.9% 100 ML IV SCH ×3 (05:18→21:43)
[2021-12-10] MEDS: SODIUM CHLORIDE 0.45% 1,000 ML IV SCH ×3 (06:03→21:43)
[2021-12-10 06:21] LABS: Basophils # 0.1 10*3/uL (0.0-0.2); Basophils % 0.5 % (0.0-0.8); Eosinophils # 0.3 10*3/uL (0.0-0.87); Eosinophils % 3.3 % (0.00-10.9); Hematocrit 26.4 VOL% (42.0-52.0); Hemoglobin 8.7 GM/DL (14.0-18.0); Immature Granulocytes % 1.2 %; Immature Granulocytes Absolute 0.12 #; Lymphocytes # 3.7 10*3/uL (1.4-4.0); Mean Corpuscular Volume 79.3 FL (87-102); Mean Platelet Volume 9.5 FL (9.6-12.0); Monocytes # 0.6 10*3/uL (0.11-0.8); Monocytes % 5.7 % (1.7-12.7); Neutrophils % 51.3 % (38.7-73.9); Platelet Count 459 T/CUMM (130-400); Red Blood Count 3.33 MC/CUMM (3.8-5.5); Red Cell Distribution Width 14.6 % (9.3-17.3); White Blood Count 9.8 T/CUMM (4-12)
[2021-12-10 06:43] LABS: Calcium 8.5 MG/DL (8.5-10.1); Osmolality,Calculated 274.7 MOS/KG (273-304); Potassium 3.8 MMOL/L (3.5-5.1)
[2021-12-10] MEDS: INSULIN REGULAR 100 UNIT/ML SUBCUT SCH ×4 (09:14→21:20)
[2021-12-10] MEDS: INSULIN NPH 100 UNIT/ML SUBCUT SCH ×2 (09:15→16:38)
[2021-12-10] MEDS: FOLIC ACID 1 MG TABLET PO SCH (09:16)
[2021-12-10] MEDS: metFORMIN 500 MG TABLET PO SCH ×2 (09:16→16:39)
[2021-12-10] MEDS: PANTOPRAZOLE 40 MG VIAL IV SCH (09:16)
[2021-12-10] MEDS: DAPAGLIFLOZIN 10 MG TABLET PO SCH (09:16)
[2021-12-10] MEDS: NICOTINE 21 MG/24 HR PATCH TRANSDERM SCH (10:12)
[2021-12-10 10:26] LABS: Hemoglobin A2 (Alkaline) 2.3 % (1.5-3.5); Hemoglobin S (Alkaline) 32.7 %
[2021-12-10] MEDS: FERROUS SULFATE 325 MG TABLET PO SCH (16:39)
[2021-12-10] MEDS: ENOXAPARIN 40 MG/0.4 ML SYRINGE SUBCUT SCH (21:44)
[2021-12-11] MEDS: HYDROmorphone 1 MG/1 ML SYRINGE IV PRN ×4 (00:35→10:38)
[2021-12-11] MEDS: PIPERACILLIN/TAZOBACTAM 3,375 MG in SODIUM CHLORIDE 0.9% 100 ML IV SCH (05:44)
[2021-12-11] MEDS: FOLIC ACID 1 MG TABLET PO SCH (08:47)
[2021-12-11] MEDS: DAPAGLIFLOZIN 10 MG TABLET PO SCH (08:47)
[2021-12-11] MEDS: FERROUS SULFATE 325 MG TABLET PO SCH (08:47)
[2021-12-11] MEDS: metFORMIN 500 MG TABLET PO SCH (08:47)
[2021-12-11] MEDS: INSULIN NPH 100 UNIT/ML SUBCUT SCH (08:48)
[2021-12-11] MEDS: INSULIN REGULAR 100 UNIT/ML SUBCUT SCH ×2 (08:48→12:10)
[2021-12-11] MEDS: PANTOPRAZOLE 40 MG VIAL IV SCH (08:54)
[2021-12-11] MEDS: NICOTINE 21 MG/24 HR PATCH TRANSDERM SCH (09:02)
[2021-12-11 09:37] LABS: Basophils # 0.1 10*3/uL (0.0-0.2); Basophils % 0.5 % (0.0-0.8); Eosinophils # 0.2 10*3/uL (0.0-0.87); Eosinophils % 1.8 % (0.00-10.9); Hematocrit 30.8 VOL% (42.0-52.0); Immature Granulocytes % 2.1 %; Immature Granulocytes Absolute 0.23 #; Lymphocytes # 2.7 10*3/uL (1.4-4.0); Lymphocytes % 24.8 % (21.2-54.2); Mean Corpuscular HGB Conc 32.5 GM/DL (32-36); Mean Corpuscular Volume 80.8 FL (87-102); Mean Platelet Volume 8.9 FL (9.6-12.0); Monocytes # 0.6 10*3/uL (0.11-0.8); Monocytes % 5.6 % (1.7-12.7); Neutrophils % 65.2 % (38.7-73.9); Platelet Count 525 T/CUMM (130-400); Red Blood Count 3.81 MC/CUMM (3.8-5.5); White Blood Count 10.9 T/CUMM (4-12)
[2021-12-11 09:55] LABS: Calcium 8.9 MG/DL (8.5-10.1); Osmolality,Calculated 279.8 MOS/KG (273-304); Potassium 3.9 MMOL/L (3.5-5.1)
[2021-12-11 12:28] VITALS: BP 159/80
[2021-12-11] MEDS: SODIUM CHLORIDE 0.45% 1,000 ML IV SCH (12:30)
== END 2021-12-11 13:01 | disposition home or self-care (01) | DRG 317 ==
LOC: N.ED 13:32 → SUATTDRO 15:53 → N.EDINP 15:53 → N.3E 17:51
PROVIDERS: ADMIT Hospitalist; ATTEND Internal Medicine

== ENCOUNTER 2022-02-01 09:44 | Inpatient (IN) ==
[2022-02-01] MEDS ORDERED: SODIUM CHLORIDE 0.9% 2,000 ML IV STA (10:18)
[2022-02-01] MEDS ORDERED: ONDANSETRON 4 MG/2 ML VIAL IV ONE ×2 (10:18→13:07)
[2022-02-01 10:44] LABS: Basophils % 0.2 % (0.0-0.8); Eosinophils % 0.2 % (0.00-10.9); Hematocrit 38.2 VOL% (42.0-52.0); Hemoglobin 12.8 GM/DL (14.0-18.0); Immature Granulocytes % 0.4 %; Immature Granulocytes Absolute 0.04 #; Lymphocytes # 1.7 10*3/uL (1.4-4.0); Lymphocytes % 15.6 % (21.2-54.2); Mean Corpuscular HGB Conc 33.5 GM/DL (32-36); Mean Corpuscular Volume 78.1 FL (87-102); Mean Platelet Volume 10.1 FL (9.6-12.0); Monocytes # 0.3 10*3/uL (0.11-0.8); Monocytes % 2.8 % (1.7-12.7); Neutrophils % 80.8 % (38.7-73.9); Platelet Count 520 T/CUMM (130-400); Red Blood Count 4.89 MC/CUMM (3.8-5.5); Red Cell Distribution Width 15.1 % (9.3-17.3); White Blood Count 10.9 T/CUMM (4-12)
[2022-02-01 10:46] LABS: Arterial Base Excess iSTAT 4 MMOL/L (-2.5-2.5); Arterial Bicarbonate iSTAT 26.3 MMOL/L (20-26); Arterial O2 Saturation iSTAT 98 % (95-100); Arterial PCO2 iSTAT 31 MM HG (35-48); Arterial PO2 iSTAT 87 MM HG (80-95); Arterial Total CO2 iSTAT 27 MMO/L (23-27); Arterial pH iSTAT 7.536 (7.35-7.45)
[2022-02-01] MEDS ORDERED: PROMETHAZINE 25 MG/1 ML VIAL ONE (10:53)
[2022-02-01 10:54] LABS: INR 0.9; PT Patient Result 10.3 SECS (10.1-12.1)
[2022-02-01] MEDS ORDERED: PROMETHAZINE 25 MG/1 ML VIAL IM STA (10:59)
[2022-02-01 11:02] LABS: Alanine Aminotransferase 9 U/L (16-61); Alkaline Phosphatase 177 U/L (45-117); Aspartate Amino Transferase 6 U/L (0-37); Blood Urea Nitrogen 14 MG/DL (7-18); Carbon Dioxide 28 MMOL/L (21-32); Chloride 94 MMOL/L (98-107); Osmolality,Calculated 292.5 MOS/KG (273-304); Potassium 3.9 MMOL/L (3.5-5.1); Sodium 132 MMOL/L (136-145); Total Protein 9.8 G/DL (6.4-8.2)
[2022-02-01 11:04] LABS: Glucose 597 MG/DL (74-106)
[2022-02-01] MEDS ORDERED: INSULIN REGULAR 100 UNIT/ML IV STA (11:06)
[2022-02-01 11:24] LABS: Mucus,Urine Occasional /LPF (Occasional); RBC,Urine 1 /HPF (0-4)
[2022-02-01 11:25] LABS: Urine Color Light Yellow (Yellow)
[2022-02-01 11:26] LABS: Bilirubin,Urine Negative (Negative); Blood, Urine Trace mg/dL (Negative); Glucose,Urine (UA) >1000 mg/dL (Negative); Ketones,Urine 40 mg/dL (Negative); Nitrite,Urine Negative (Negative); Protein,Urine 30 mg/dL (Negative); Urine Appearance Clear (Clear); Urine Urobilinogen 0.2 eU/dL (<2.0)
[2022-02-01 13:42] LABS: Barbiturates Screen,Urine Negative (Negative); Benzodiazepines Screen,Urine Negative (Negative); Cannabinoid Screen,Urine Positive (Negative); Opiate Screen,Urine Negative (Negative); Phencyclidine Screen,Urine Negative (Negative)
[2022-02-01] MEDS ORDERED: hydrALAZINE 20 MG/1 ML VIAL IV PRN (13:46)
[2022-02-01] MEDS ORDERED: ACETAMINOPHEN 325 MG TABLET PO PRN (13:46)
[2022-02-01] MEDS ORDERED: DEXTROSE 10% 250 ML BAG IV PRN (13:54)
[2022-02-01] MEDS ORDERED: METOCLOPRAMIDE 10 MG/2 ML VIAL IV SCH (14:00)
[2022-02-01] MEDS: ENOXAPARIN 40 MG/0.4 ML SYRINGE SUBCUT SCH (16:21)
[2022-02-01] MEDS: SODIUM CHLORIDE 0.9% 1,000 ML IV SCH ×2 (16:22→21:32)
[2022-02-01] MEDS: ONDANSETRON 4 MG/2 ML VIAL IV PRN ×2 (16:38→21:32)
[2022-02-01] MEDS: ERYTHROMYCIN INJ 125 MG in SODIUM CHLORIDE 0.9% 100 ML IV SCH (17:33)
[2022-02-01] MEDS: INSULIN LISPRO 100 UNIT/ML SUBCUT SCH (17:34)
[2022-02-01] MEDS ORDERED: INSULIN GLARGINE 100 UNIT/ML SUBCUT SCH (21:00)
[2022-02-01] MEDS: FERROUS SULFATE 325 MG TABLET PO SCH (21:33)
[2022-02-02] MEDS: ERYTHROMYCIN INJ 125 MG in SODIUM CHLORIDE 0.9% 100 ML IV SCH ×4 (00:56→18:11)
[2022-02-02] MEDS: INSULIN LISPRO 100 UNIT/ML SUBCUT SCH ×4 (00:56→18:12)
[2022-02-02] MEDS: SODIUM CHLORIDE 0.9% 1,000 ML IV SCH ×2 (06:18→16:20)
[2022-02-02 06:23] LABS: Basophils % 0.3 % (0.0-0.8); Eosinophils # 0.1 10*3/uL (0.0-0.87); Eosinophils % 0.7 % (0.00-10.9); Hematocrit 29.7 VOL% (42.0-52.0); Immature Granulocytes % 0.6 %; Immature Granulocytes Absolute 0.07 #; Lymphocytes # 2.7 10*3/uL (1.4-4.0); Mean Corpuscular Volume 81.1 FL (87-102); Mean Platelet Volume 9.6 FL (9.6-12.0); Monocytes # 0.7 10*3/uL (0.11-0.8); Monocytes % 5.6 % (1.7-12.7); Neutrophils % 69.8 % (38.7-73.9); Platelet Count 374 T/CUMM (130-400); Red Blood Count 3.66 MC/CUMM (3.8-5.5); Red Cell Distribution Width 15.2 % (9.3-17.3); White Blood Count 11.8 T/CUMM (4-12)
[2022-02-02 06:30] LABS: Hemoglobin 9.8 GM/DL (14.0-18.0)
[2022-02-02 06:39] LABS: Calcium 8.1 MG/DL (8.5-10.1); Osmolality,Calculated 279.5 MOS/KG (273-304); Potassium 2.8 MMOL/L (3.5-5.1)
[2022-02-02] MEDS: ONDANSETRON 4 MG/2 ML VIAL IV PRN ×2 (06:40→15:36)
[2022-02-02] MEDS ORDERED: POTASSIUM CHLORIDE RIDER 10 MEQ/100 ML PREMIX IV PRN (07:27)
[2022-02-02] MEDS: lisinopriL 10 MG TABLET PO SCH (09:31)
[2022-02-02] MEDS: FERROUS SULFATE 325 MG TABLET PO SCH ×2 (09:31→21:48)
[2022-02-02 14:15] LABS: Folate 4.27 NG/ML (5.38-24.0)
[2022-02-02 14:17] LABS: % Iron Saturation 37.6 % (18-50)
[2022-02-02] MEDS: ENOXAPARIN 40 MG/0.4 ML SYRINGE SUBCUT SCH (14:46)
[2022-02-02] MEDS: POTASSIUM CHLORIDE RIDER 10 MEQ/100 ML PREMIX IV PRN ×3 (14:46→23:08)
[2022-02-02] MEDS ORDERED: DEXTROSE 50% 25 GM/50 ML VIAL IV PRN (16:56)
[2022-02-02] MEDS ORDERED: GLUCAGON 1 MG VIAL IM PRN (16:56)
[2022-02-02] MEDS ORDERED: INSULIN GLARGINE 100 UNIT/ML SUBCUT SCH (21:00)
[2022-02-03] MEDS: ERYTHROMYCIN INJ 125 MG in SODIUM CHLORIDE 0.9% 100 ML IV SCH ×2 (00:17→05:51)
[2022-02-03] MEDS: INSULIN LISPRO 100 UNIT/ML SUBCUT SCH ×3 (00:18→11:07)
[2022-02-03] MEDS: POTASSIUM CHLORIDE RIDER 10 MEQ/100 ML PREMIX IV PRN ×3 (00:22→09:01)
[2022-02-03] MEDS: SODIUM CHLORIDE 0.9% 1,000 ML IV SCH ×2 (03:32→05:06)
[2022-02-03 05:16] LABS: Basophils % 0.2 % (0.0-0.8); Eosinophils # 0.3 10*3/uL (0.0-0.87); Eosinophils % 2.8 % (0.00-10.9); Hematocrit 32.4 VOL% (42.0-52.0); Hemoglobin 10.8 GM/DL (14.0-18.0); Immature Granulocytes % 0.5 %; Immature Granulocytes Absolute 0.06 #; Lymphocytes # 3.5 10*3/uL (1.4-4.0); Lymphocytes % 28.9 % (21.2-54.2); Mean Corpuscular HGB Conc 33.3 GM/DL (32-36); Mean Corpuscular Volume 79.2 FL (87-102); Mean Platelet Volume 9.5 FL (9.6-12.0); Monocytes # 0.7 10*3/uL (0.11-0.8); Neutrophils % 61.6 % (38.7-73.9); Platelet Count 410 T/CUMM (130-400); Red Blood Count 4.09 MC/CUMM (3.8-5.5); White Blood Count 12.1 T/CUMM (4-12)
[2022-02-03 05:37] LABS: Calcium 8.3 MG/DL (8.5-10.1); Osmolality,Calculated 277.5 MOS/KG (273-304)
[2022-02-03] MEDS ORDERED: POTASSIUM CHLORIDE 20 MEQ TABLET PO ONE (08:00)
[2022-02-03] MEDS ORDERED: DAPAGLIFLOZIN 10 MG TABLET PO SCH (09:00)
[2022-02-03] MEDS ORDERED: FOLIC ACID 1 MG TABLET PO SCH (09:00)
[2022-02-03] MEDS ORDERED: CHOLECALCIFEROL 1,000 UNIT TABLET PO SCH (09:00)
[2022-02-03] MEDS: lisinopriL 10 MG TABLET PO SCH (09:01)
[2022-02-03] MEDS: FERROUS SULFATE 325 MG TABLET PO SCH (09:01)
[2022-02-03 11:07] VITALS: BP 154/81
== END 2022-02-03 11:11 | disposition home or self-care (01) | DRG 48 ==
LOC: N.ED 09:44 → SUATTDRO 13:46 → N.EDINP 13:46 → N.3E 16:36
PROVIDERS: ADMIT Internal Medicine; ATTEND Emergency Medicine

== ENCOUNTER 2022-02-18 16:49 | Inpatient (IN) ==
[2022-02-18] MEDS ORDERED: SODIUM CHLORIDE 0.9% 1,000 ML IV STA ×2 (19:12→20:47)
[2022-02-18] MEDS ORDERED: ONDANSETRON 4 MG/2 ML VIAL IV STA ×2 (19:12→21:15)
[2022-02-18] MEDS ORDERED: HYDROmorphone 1 MG/1 ML SYRINGE IV STA (19:12)
[2022-02-18 20:27] LABS: Basophils % 0.3 % (0.0-0.8); Eosinophils # 0.1 10*3/uL (0.0-0.87); Eosinophils % 0.5 % (0.00-10.9); Hematocrit 32.1 VOL% (42.0-52.0); Hemoglobin 10.7 GM/DL (14.0-18.0); Immature Granulocytes % 1.3 %; Immature Granulocytes Absolute 0.18 #; Lymphocytes # 2.3 10*3/uL (1.4-4.0); Lymphocytes % 16.3 % (21.2-54.2); Mean Corpuscular HGB Conc 33.3 GM/DL (32-36); Mean Corpuscular Volume 78.9 FL (87-102); Mean Platelet Volume 10.1 FL (9.6-12.0); Monocytes # 0.9 10*3/uL (0.11-0.8); Monocytes % 6.4 % (1.7-12.7); Neutrophils % 75.2 % (38.7-73.9); Platelet Count 461 T/CUMM (130-400); Red Blood Count 4.07 MC/CUMM (3.8-5.5); Red Cell Distribution Width 14.4 % (9.3-17.3)
[2022-02-18 20:46] LABS: Alanine Aminotransferase 33 U/L (16-61); Albumin 2.1 G/DL (3.4-5.0); Alkaline Phosphatase 389 U/L (45-117); Amylase 49 U/L (25-115); Aspartate Amino Transferase 47 U/L (0-37); Bilirubin,Total < 0.39 MG/DL (0.20-1.00); Blood Urea Nitrogen 14 MG/DL (7-18); Calcium 9.6 MG/DL (8.5-10.1); Carbon Dioxide 27 MMOL/L (21-32); Chloride 90 MMOL/L (98-107); Osmolality,Calculated 288.1 MOS/KG (273-304); Potassium 4.6 MMOL/L (3.5-5.1); Sodium 128 MMOL/L (136-145); Total Protein 9.1 G/DL (6.4-8.2)
[2022-02-18 20:47] LABS: Glucose 665 MG/DL (74-106)
[2022-02-18] MEDS ORDERED: INSULIN REGULAR 100 UNIT/ML SUBCUT STA (20:48)
[2022-02-18 21:04] LABS: Mucus,Urine Occasional /LPF (Occasional); RBC,Urine 1 /HPF (0-4); Squamous Epithelial Cell,Urine Occasional /HPF (0-10)
[2022-02-18 21:05] LABS: Bilirubin,Urine Negative (Negative); Blood, Urine Trace mg/dL (Negative); Glucose,Urine (UA) >1000 mg/dL (Negative); Ketones,Urine Negative (Negative); Nitrite,Urine Negative (Negative); Protein,Urine Negative (Negative); Urine Appearance Clear (Clear); Urine Color Yellow (Yellow); Urine Specific Gravity < 1.005 (1.001-1.035); Urine Urobilinogen 0.2 eU/dL (<2.0)
[2022-02-18] MEDS ORDERED: MORPHINE 2 MG/1 ML SYRINGE ONE (21:13)
[2022-02-18] MEDS ORDERED: MORPHINE 2 MG/1 ML SYRINGE IV STA (21:15)
[2022-02-18] MEDS ORDERED: INSULIN REGULAR 100 UNIT/ML IV STA (21:45)
[2022-02-19] MEDS ORDERED: ONDANSETRON 4 MG/2 ML VIAL IV PRN
[2022-02-19] MEDS ORDERED: ACETAMINOPHEN 325 MG TABLET PO PRN
[2022-02-19] MEDS ORDERED: PROMETHAZINE 25 MG TABLET PO PRN
[2022-02-19] MEDS ORDERED: hydrALAZINE 20 MG/1 ML VIAL IV PRN
[2022-02-19] MEDS ORDERED: diphenhydrAMINE CAP 25 MG CAPSULE PO PRN
[2022-02-19] MEDS ORDERED: PROMETHAZINE 25 MG/1 ML VIAL IM PRN
[2022-02-19] MEDS ORDERED: CALCIUM CARBONATE CHEW 500 MG TABLET PO PRN
[2022-02-19] MEDS ORDERED: ZALEPLON 5 MG CAPSULE PO PRN
[2022-02-19] MEDS ORDERED: NICOTINE 21 MG/24 HR PATCH TRANSDERM PRN
[2022-02-19] MEDS ORDERED: guaiFENesin/DM ER 600-30 MG TABLET PO PRN
[2022-02-19] MEDS ORDERED: METOCLOPRAMIDE 10 MG/2 ML VIAL IV PRN (00:03)
[2022-02-19] MEDS: INSULIN REGULAR 100 UNIT/ML SUBCUT SCH ×4 (01:48→18:06)
[2022-02-19] MEDS: MORPHINE 2 MG/1 ML SYRINGE IV PRN ×5 (01:53→22:40)
[2022-02-19] MEDS: POTASSIUM CHLORIDE INJ 40 MEQ in SODIUM CHLORIDE 0.45% 1,000 ML IV SCH ×3 (01:55→22:28)
[2022-02-19 05:56] LABS: Basophils % 0.2 % (0.0-0.8); Eosinophils # 0.1 10*3/uL (0.0-0.87); Eosinophils % 0.6 % (0.00-10.9); Hematocrit 28.5 VOL% (42.0-52.0); Hemoglobin 9.4 GM/DL (14.0-18.0); Immature Granulocytes % 0.9 %; Immature Granulocytes Absolute 0.13 #; Lymphocytes # 2.2 10*3/uL (1.4-4.0); Mean Corpuscular Volume 80.5 FL (87-102); Mean Platelet Volume 9.8 FL (9.6-12.0); Monocytes % 6.8 % (1.7-12.7); Neutrophils % 76.5 % (38.7-73.9); Platelet Count 389 T/CUMM (130-400); Red Blood Count 3.54 MC/CUMM (3.8-5.5); Red Cell Distribution Width 14.4 % (9.3-17.3); White Blood Count 14.9 T/CUMM (4-12)
[2022-02-19 06:08] LABS: Osmolality,Calculated 275.8 MOS/KG (273-304); Potassium 3.9 MMOL/L (3.5-5.1)
[2022-02-19] MEDS: DAPAGLIFLOZIN 10 MG TABLET PO SCH (10:41)
[2022-02-19] MEDS: lisinopriL 5 MG TABLET PO SCH (10:41)
[2022-02-19] MEDS: FERROUS SULFATE 325 MG TABLET PO SCH ×2 (10:41→20:43)
[2022-02-19] MEDS: PANTOPRAZOLE 40 MG TABLET PO SCH (13:46)
[2022-02-19] MEDS: METOCLOPRAMIDE 10 MG/2 ML VIAL IV SCH ×2 (13:47→18:05)
[2022-02-19] MEDS ORDERED: DEXTROSE 10% 250 ML BAG IV PRN (14:38)
[2022-02-19] MEDS ORDERED: GLUCAGON 1 MG VIAL IM PRN (14:38)
[2022-02-19] MEDS ORDERED: INSULIN GLARGINE 100 UNIT/ML SUBCUT SCH (21:00)
[2022-02-19 23:07] LABS: Barbiturates Screen,Urine Negative (Negative); Benzodiazepines Screen,Urine Negative (Negative); Cannabinoid Screen,Urine Negative (Negative); Opiate Screen,Urine Positive (Negative); Phencyclidine Screen,Urine Negative (Negative)
[2022-02-20] MEDS: METOCLOPRAMIDE 10 MG/2 ML VIAL IV SCH ×4 (00:40→19:34)
[2022-02-20] MEDS: INSULIN REGULAR 100 UNIT/ML SUBCUT SCH ×4 (00:42→18:24)
[2022-02-20 07:47] LABS: Basophils % 0.2 % (0.0-0.8); Eosinophils # 0.1 10*3/uL (0.0-0.87); Eosinophils % 0.8 % (0.00-10.9); Hematocrit 31.2 VOL% (42.0-52.0); Hemoglobin 10.3 GM/DL (14.0-18.0); Immature Granulocytes % 1.2 %; Immature Granulocytes Absolute 0.18 #; Lymphocytes # 2.2 10*3/uL (1.4-4.0); Lymphocytes % 14.1 % (21.2-54.2); Mean Corpuscular Volume 79.8 FL (87-102); Monocytes % 6.5 % (1.7-12.7); Neutrophils % 77.2 % (38.7-73.9); Platelet Count 374 T/CUMM (130-400); Red Blood Count 3.91 MC/CUMM (3.8-5.5); Red Cell Distribution Width 14.8 % (9.3-17.3); White Blood Count 15.6 T/CUMM (4-12)
[2022-02-20 08:06] LABS: Albumin 1.8 G/DL (3.4-5.0); Bilirubin,Total 0.4 MG/DL (0.20-1.00); Osmolality,Calculated 267.5 MOS/KG (273-304); Potassium 4.2 MMOL/L (3.5-5.1); Total Protein 9.1 G/DL (6.4-8.2)
[2022-02-20] MEDS: DAPAGLIFLOZIN 10 MG TABLET PO SCH (08:44)
[2022-02-20] MEDS: FERROUS SULFATE 325 MG TABLET PO SCH ×2 (08:45→21:50)
[2022-02-20] MEDS: lisinopriL 5 MG TABLET PO SCH (08:45)
[2022-02-20] MEDS: PANTOPRAZOLE 40 MG TABLET PO SCH (08:45)
[2022-02-20] MEDS: POTASSIUM CHLORIDE INJ 40 MEQ in SODIUM CHLORIDE 0.45% 1,000 ML IV SCH (09:17)
[2022-02-20] MEDS: VANCOMYCIN INJ 1,000 MG in SODIUM CHLORIDE 0.9% 250 ML IV SCH ×2 (12:00→21:50)
[2022-02-20] MEDS: SODIUM CHLORIDE 0.9% 1,000 ML IV SCH (12:20)
[2022-02-20] MEDS ORDERED: INSULIN GLARGINE 100 UNIT/ML SUBCUT SCH (21:00)
[2022-02-21] MEDS: METOCLOPRAMIDE 10 MG/2 ML VIAL IV SCH ×4 (00:02→18:35)
[2022-02-21] MEDS: INSULIN REGULAR 100 UNIT/ML SUBCUT SCH ×4 (01:10→18:34)
[2022-02-21] MEDS: SODIUM CHLORIDE 0.9% 1,000 ML IV SCH ×2 (01:11→18:37)
[2022-02-21 04:58] LABS: Basophils # 0.1 10*3/uL (0.0-0.2); Basophils % 0.3 % (0.0-0.8); Eosinophils # 0.2 10*3/uL (0.0-0.87); Eosinophils % 1.4 % (0.00-10.9); Hematocrit 31.3 VOL% (42.0-52.0); Hemoglobin 10.2 GM/DL (14.0-18.0); Immature Granulocytes % 1.2 %; Lymphocytes % 18.4 % (21.2-54.2); Mean Corpuscular HGB Conc 32.6 GM/DL (32-36); Mean Corpuscular Volume 80.3 FL (87-102); Monocytes % 5.9 % (1.7-12.7); Neutrophils % 72.8 % (38.7-73.9); Platelet Count 380 T/CUMM (130-400); Red Cell Distribution Width 15.1 % (9.3-17.3); White Blood Count 16.4 T/CUMM (4-12)
[2022-02-21 05:11] LABS: Calcium 8.9 MG/DL (8.5-10.1); Osmolality,Calculated 271.2 MOS/KG (273-304); Potassium 4.3 MMOL/L (3.5-5.1)
[2022-02-21] MEDS: VANCOMYCIN INJ 1,000 MG in SODIUM CHLORIDE 0.9% 250 ML IV SCH ×2 (09:36→23:30)
[2022-02-21] MEDS: FERROUS SULFATE 325 MG TABLET PO SCH ×2 (09:37→20:59)
[2022-02-21] MEDS: DAPAGLIFLOZIN 10 MG TABLET PO SCH (09:37)
[2022-02-21] MEDS: PANTOPRAZOLE 40 MG TABLET PO SCH (09:37)
[2022-02-21] MEDS: lisinopriL 5 MG TABLET PO SCH (09:37)
[2022-02-21] MEDS: INSULIN GLARGINE 100 UNIT/ML SUBCUT SCH (21:02)
[2022-02-22] MEDS: INSULIN REGULAR 100 UNIT/ML SUBCUT SCH ×4 (02:56→18:21)
[2022-02-22] MEDS: METOCLOPRAMIDE 10 MG/2 ML VIAL IV SCH ×5 (02:57→23:42)
[2022-02-22 08:27] LABS: Basophils % 0.1 % (0.0-0.8); Eosinophils # 0.2 10*3/uL (0.0-0.87); Hematocrit 28.1 VOL% (42.0-52.0); Hemoglobin 9.2 GM/DL (14.0-18.0); Immature Granulocytes % 1.4 %; Immature Granulocytes Absolute 0.21 #; Lymphocytes # 2.3 10*3/uL (1.4-4.0); Lymphocytes % 15.6 % (21.2-54.2); Mean Corpuscular HGB Conc 32.7 GM/DL (32-36); Mean Corpuscular Volume 79.6 FL (87-102); Mean Platelet Volume 9.8 FL (9.6-12.0); Monocytes # 0.9 10*3/uL (0.11-0.8); Monocytes % 5.9 % (1.7-12.7); Platelet Count 354 T/CUMM (130-400); Red Blood Count 3.53 MC/CUMM (3.8-5.5); Red Cell Distribution Width 15.2 % (9.3-17.3); White Blood Count 14.5 T/CUMM (4-12)
[2022-02-22 08:38] LABS: Calcium 8.3 MG/DL (8.5-10.1); Osmolality,Calculated 273.8 MOS/KG (273-304); Potassium 4.2 MMOL/L (3.5-5.1)
[2022-02-22] MEDS: DAPAGLIFLOZIN 10 MG TABLET PO SCH (10:15)
[2022-02-22] MEDS: lisinopriL 5 MG TABLET PO SCH (10:15)
[2022-02-22] MEDS: FERROUS SULFATE 325 MG TABLET PO SCH ×2 (10:15→21:23)
[2022-02-22] MEDS: PANTOPRAZOLE 40 MG TABLET PO SCH (10:15)
[2022-02-22] MEDS: MORPHINE 2 MG/1 ML SYRINGE IV PRN ×2 (11:00→21:26)
[2022-02-22] MEDS: VANCOMYCIN INJ 1,250 MG in SODIUM CHLORIDE 0.9% 250 ML IV SCH (14:43)
[2022-02-22] MEDS: FOLIC ACID 1 MG TABLET PO SCH (21:23)
[2022-02-22] MEDS: INSULIN GLARGINE 100 UNIT/ML SUBCUT SCH (21:23)
[2022-02-22] MEDS: SODIUM CHLORIDE 0.9% 1,000 ML IV SCH (21:24)
[2022-02-23] MEDS: INSULIN REGULAR 100 UNIT/ML SUBCUT SCH ×5 (00:47→18:31)
[2022-02-23] MEDS: VANCOMYCIN INJ 1,250 MG in SODIUM CHLORIDE 0.9% 250 ML IV SCH ×2 (01:06→14:38)
[2022-02-23] MEDS: MORPHINE 2 MG/1 ML SYRINGE IV PRN ×3 (03:39→20:52)
[2022-02-23 05:01] LABS: Basophils % 0.3 % (0.0-0.8); Eosinophils # 0.2 10*3/uL (0.0-0.87); Eosinophils % 1.3 % (0.00-10.9); Hematocrit 26.1 VOL% (42.0-52.0); Hemoglobin 8.7 GM/DL (14.0-18.0); Immature Granulocytes Absolute 0.25 #; Lymphocytes # 2.8 10*3/uL (1.4-4.0); Lymphocytes % 21.6 % (21.2-54.2); Mean Corpuscular HGB Conc 33.3 GM/DL (32-36); Mean Corpuscular Volume 79.6 FL (87-102); Mean Platelet Volume 9.8 FL (9.6-12.0); Monocytes # 0.9 10*3/uL (0.11-0.8); Monocytes % 7.2 % (1.7-12.7); Neutrophils % 67.6 % (38.7-73.9); Platelet Count 340 T/CUMM (130-400); Red Blood Count 3.28 MC/CUMM (3.8-5.5); Red Cell Distribution Width 15.2 % (9.3-17.3); White Blood Count 12.8 T/CUMM (4-12)
[2022-02-23 05:31] LABS: Calcium 8.3 MG/DL (8.5-10.1); Osmolality,Calculated 280.8 MOS/KG (273-304); Potassium 3.5 MMOL/L (3.5-5.1)
[2022-02-23] MEDS: METOCLOPRAMIDE 10 MG/2 ML VIAL IV SCH ×3 (05:52→17:45)
[2022-02-23] MEDS ORDERED: POTASSIUM CHLORIDE 20 MEQ TABLET PO ONE (07:27)
[2022-02-23] MEDS: FERROUS SULFATE 325 MG TABLET PO SCH ×2 (09:42→20:52)
[2022-02-23] MEDS: PANTOPRAZOLE 40 MG TABLET PO SCH (09:42)
[2022-02-23] MEDS: CHOLECALCIFEROL 1,000 UNIT TABLET PO SCH (09:42)
[2022-02-23] MEDS: FOLIC ACID 1 MG TABLET PO SCH ×2 (09:42→21:48)
[2022-02-23] MEDS: DAPAGLIFLOZIN 10 MG TABLET PO SCH (09:42)
[2022-02-23] MEDS: lisinopriL 5 MG TABLET PO SCH (09:42)
[2022-02-23] MEDS: SODIUM CHLORIDE 0.9% 1,000 ML IV SCH (14:38)
[2022-02-23] MEDS: INSULIN GLARGINE 100 UNIT/ML SUBCUT SCH (20:51)
[2022-02-24] MEDS: INSULIN REGULAR 100 UNIT/ML SUBCUT SCH ×4 (00:41→18:12)
[2022-02-24] MEDS: METOCLOPRAMIDE 10 MG/2 ML VIAL IV SCH ×4 (00:41→18:11)
[2022-02-24] MEDS: VANCOMYCIN INJ 1,250 MG in SODIUM CHLORIDE 0.9% 250 ML IV SCH ×2 (02:54→13:29)
[2022-02-24] MEDS: SODIUM CHLORIDE 0.9% 1,000 ML IV SCH ×2 (04:52→21:01)
[2022-02-24 05:16] LABS: Basophils # 0.1 10*3/uL (0.0-0.2); Basophils % 0.4 % (0.0-0.8); Eosinophils # 0.2 10*3/uL (0.0-0.87); Eosinophils % 1.6 % (0.00-10.9); Hematocrit 28.7 VOL% (42.0-52.0); Hemoglobin 9.3 GM/DL (14.0-18.0); Immature Granulocytes % 3.2 %; Immature Granulocytes Absolute 0.45 #; Lymphocytes # 3.1 10*3/uL (1.4-4.0); Lymphocytes % 21.7 % (21.2-54.2); Mean Corpuscular HGB Conc 32.4 GM/DL (32-36); Mean Corpuscular Volume 79.9 FL (87-102); Mean Platelet Volume 9.2 FL (9.6-12.0); Monocytes % 6.8 % (1.7-12.7); Neutrophils % 66.3 % (38.7-73.9); Platelet Count 386 T/CUMM (130-400); Red Blood Count 3.59 MC/CUMM (3.8-5.5); Red Cell Distribution Width 15.3 % (9.3-17.3); White Blood Count 14.1 T/CUMM (4-12)
[2022-02-24 05:38] LABS: Anisocytosis 1+; Platelet Estimate Normal
[2022-02-24 05:39] LABS: Target Cells Few
[2022-02-24 05:40] LABS: Calcium 9.2 MG/DL (8.5-10.1); Osmolality,Calculated 276.8 MOS/KG (273-304); Potassium 4.3 MMOL/L (3.5-5.1)
[2022-02-24] MEDS ORDERED: MIDAZOLAM 2 MG/2 ML VIAL ONE (08:34)
[2022-02-24] MEDS ORDERED: fentaNYL 100 MCG/2 ML VIAL ONE (08:34)
[2022-02-24] MEDS ORDERED: ONDANSETRON 4 MG/2 ML VIAL ONE (08:35)
[2022-02-24] MEDS ORDERED: propofoL 200 MG/20 ML VIAL IV ONE (08:35)
[2022-02-24] MEDS ORDERED: SEVOFLURANE 1 UNIT/15 MINUTE INH ONE (08:35)
[2022-02-24] MEDS ORDERED: LIDOCAINE 2% 5 ML VIAL ONE (08:35)
[2022-02-24] MEDS ORDERED: PHENYLEPHRINE 1 MG/10 ML SYRINGE IV ONE (09:56)
[2022-02-24] MEDS: HYDROmorphone 1 MG/1 ML SYRINGE IV PRN ×6 (10:16→22:59)
[2022-02-24] MEDS ORDERED: ONDANSETRON 4 MG/2 ML VIAL IV PRN (10:23)
[2022-02-24] MEDS: PANTOPRAZOLE 40 MG TABLET PO SCH (11:47)
[2022-02-24] MEDS: FOLIC ACID 1 MG TABLET PO SCH ×2 (11:47→20:51)
[2022-02-24] MEDS: CHOLECALCIFEROL 1,000 UNIT TABLET PO SCH (11:47)
[2022-02-24] MEDS: lisinopriL 5 MG TABLET PO SCH (11:47)
[2022-02-24] MEDS: DAPAGLIFLOZIN 10 MG TABLET PO SCH (11:47)
[2022-02-24] MEDS: FERROUS SULFATE 325 MG TABLET PO SCH ×2 (11:48→20:51)
[2022-02-24] MEDS: INSULIN GLARGINE 100 UNIT/ML SUBCUT SCH (20:52)
[2022-02-25] MEDS: INSULIN REGULAR 100 UNIT/ML SUBCUT SCH ×4 (00:33→18:08)
[2022-02-25] MEDS: METOCLOPRAMIDE 10 MG/2 ML VIAL IV SCH ×5 (00:34→23:45)
[2022-02-25] MEDS: HYDROmorphone 1 MG/1 ML SYRINGE IV PRN ×10 (00:58→23:45)
[2022-02-25] MEDS: VANCOMYCIN INJ 1,250 MG in SODIUM CHLORIDE 0.9% 250 ML IV SCH ×2 (01:00→15:00)
[2022-02-25 05:36] LABS: Basophils % 0.4 % (0.0-0.8); Eosinophils # 0.2 10*3/uL (0.0-0.87); Eosinophils % 1.5 % (0.00-10.9); Hemoglobin 8.2 GM/DL (14.0-18.0); Immature Granulocytes % 4.1 %; Immature Granulocytes Absolute 0.45 #; Lymphocytes # 2.5 10*3/uL (1.4-4.0); Mean Corpuscular HGB Conc 32.8 GM/DL (32-36); Mean Corpuscular Volume 80.9 FL (87-102); Mean Platelet Volume 9.5 FL (9.6-12.0); Monocytes # 0.9 10*3/uL (0.11-0.8); Monocytes % 8.4 % (1.7-12.7); Neutrophils % 62.6 % (38.7-73.9); Platelet Count 323 T/CUMM (130-400); Red Blood Count 3.09 MC/CUMM (3.8-5.5); Red Cell Distribution Width 15.9 % (9.3-17.3)
[2022-02-25] MEDS: SODIUM CHLORIDE 0.9% 1,000 ML IV SCH ×2 (05:54→22:21)
[2022-02-25 05:56] LABS: Calcium 8.8 MG/DL (8.5-10.1); Osmolality,Calculated 276.5 MOS/KG (273-304); Potassium 3.9 MMOL/L (3.5-5.1)
[2022-02-25] MEDS: CHOLECALCIFEROL 1,000 UNIT TABLET PO SCH (08:01)
[2022-02-25] MEDS: FERROUS SULFATE 325 MG TABLET PO SCH ×2 (08:01→20:14)
[2022-02-25] MEDS: PANTOPRAZOLE 40 MG TABLET PO SCH (08:02)
[2022-02-25] MEDS: DAPAGLIFLOZIN 10 MG TABLET PO SCH (08:02)
[2022-02-25] MEDS: lisinopriL 5 MG TABLET PO SCH (08:02)
[2022-02-25] MEDS: FOLIC ACID 1 MG TABLET PO SCH ×2 (08:02→20:14)
[2022-02-25] MEDS: INSULIN GLARGINE 100 UNIT/ML SUBCUT SCH (20:14)
[2022-02-26] MEDS: INSULIN REGULAR 100 UNIT/ML SUBCUT SCH ×4 (00:14→18:04)
[2022-02-26] MEDS: VANCOMYCIN INJ 1,250 MG in SODIUM CHLORIDE 0.9% 250 ML IV SCH ×2 (01:19→15:09)
[2022-02-26] MEDS: HYDROmorphone 1 MG/1 ML SYRINGE IV PRN ×7 (04:52→23:04)
[2022-02-26] MEDS: METOCLOPRAMIDE 10 MG/2 ML VIAL IV SCH ×4 (05:09→23:02)
[2022-02-26 05:44] LABS: Basophils % 0.4 % (0.0-0.8); Eosinophils # 0.2 10*3/uL (0.0-0.87); Hematocrit 26.3 VOL% (42.0-52.0); Hemoglobin 8.6 GM/DL (14.0-18.0); Immature Granulocytes % 4.4 %; Immature Granulocytes Absolute 0.37 #; Lymphocytes # 2.3 10*3/uL (1.4-4.0); Lymphocytes % 26.8 % (21.2-54.2); Mean Corpuscular HGB Conc 32.7 GM/DL (32-36); Mean Corpuscular Volume 80.4 FL (87-102); Mean Platelet Volume 9.5 FL (9.6-12.0); Monocytes # 0.7 10*3/uL (0.11-0.8); Monocytes % 8.2 % (1.7-12.7); Neutrophils % 58.2 % (38.7-73.9); Platelet Count 384 T/CUMM (130-400); Red Blood Count 3.27 MC/CUMM (3.8-5.5); Red Cell Distribution Width 15.7 % (9.3-17.3); White Blood Count 8.5 T/CUMM (4-12)
[2022-02-26 06:00] LABS: Calcium 9.2 MG/DL (8.5-10.1); Osmolality,Calculated 282.3 MOS/KG (273-304)
[2022-02-26] MEDS: CHOLECALCIFEROL 1,000 UNIT TABLET PO SCH (09:12)
[2022-02-26] MEDS: DAPAGLIFLOZIN 10 MG TABLET PO SCH (09:12)
[2022-02-26] MEDS: FERROUS SULFATE 325 MG TABLET PO SCH ×2 (09:12→20:34)
[2022-02-26] MEDS: FOLIC ACID 1 MG TABLET PO SCH ×2 (09:13→20:34)
[2022-02-26] MEDS: lisinopriL 5 MG TABLET PO SCH (09:13)
[2022-02-26] MEDS: PANTOPRAZOLE 40 MG TABLET PO SCH (09:13)
[2022-02-26] MEDS: SODIUM CHLORIDE 0.9% 1,000 ML IV SCH ×2 (10:54→21:22)
[2022-02-26] MEDS: INSULIN GLARGINE 100 UNIT/ML SUBCUT SCH (20:34)
[2022-02-27] MEDS: INSULIN REGULAR 100 UNIT/ML SUBCUT SCH ×4 (00:11→18:20)
[2022-02-27] MEDS: VANCOMYCIN INJ 1,250 MG in SODIUM CHLORIDE 0.9% 250 ML IV SCH ×3 (01:28→21:26)
[2022-02-27] MEDS: HYDROmorphone 1 MG/1 ML SYRINGE IV PRN ×8 (01:29→23:14)
[2022-02-27] MEDS: METOCLOPRAMIDE 10 MG/2 ML VIAL IV SCH ×4 (05:23→23:14)
[2022-02-27 05:35] LABS: Basophils % 0.4 % (0.0-0.8); Eosinophils # 0.2 10*3/uL (0.0-0.87); Eosinophils % 2.3 % (0.00-10.9); Hematocrit 25.6 VOL% (42.0-52.0); Hemoglobin 8.3 GM/DL (14.0-18.0); Immature Granulocytes % 2.3 %; Immature Granulocytes Absolute 0.21 #; Lymphocytes # 2.8 10*3/uL (1.4-4.0); Lymphocytes % 30.9 % (21.2-54.2); Mean Corpuscular HGB Conc 32.4 GM/DL (32-36); Mean Corpuscular Volume 81.8 FL (87-102); Mean Platelet Volume 9.5 FL (9.6-12.0); Monocytes # 0.8 10*3/uL (0.11-0.8); Monocytes % 8.9 % (1.7-12.7); Neutrophils % 55.2 % (38.7-73.9); Platelet Count 381 T/CUMM (130-400); Red Blood Count 3.13 MC/CUMM (3.8-5.5); Red Cell Distribution Width 15.9 % (9.3-17.3); White Blood Count 9.2 T/CUMM (4-12)
[2022-02-27 05:47] LABS: Calcium 8.5 MG/DL (8.5-10.1); Osmolality,Calculated 279.5 MOS/KG (273-304); Potassium 3.6 MMOL/L (3.5-5.1)
[2022-02-27 05:58] LABS: Platelet Estimate Normal
[2022-02-27 06:01] LABS: Anisocytosis 2+
[2022-02-27] MEDS: DAPAGLIFLOZIN 10 MG TABLET PO SCH (08:32)
[2022-02-27] MEDS: FOLIC ACID 1 MG TABLET PO SCH ×2 (08:33→21:26)
[2022-02-27] MEDS: lisinopriL 5 MG TABLET PO SCH (08:33)
[2022-02-27] MEDS: PANTOPRAZOLE 40 MG TABLET PO SCH (08:33)
[2022-02-27] MEDS: FERROUS SULFATE 325 MG TABLET PO SCH ×2 (08:33→21:26)
[2022-02-27] MEDS: CHOLECALCIFEROL 1,000 UNIT TABLET PO SCH (09:18)
[2022-02-27] MEDS: SODIUM CHLORIDE 0.9% 1,000 ML IV SCH (12:46)
[2022-02-27] MEDS: INSULIN GLARGINE 100 UNIT/ML SUBCUT SCH (21:29)
[2022-02-28] MEDS: INSULIN REGULAR 100 UNIT/ML SUBCUT SCH ×4 (00:12→18:53)
[2022-02-28] MEDS: SODIUM CHLORIDE 0.9% 1,000 ML IV SCH (00:20)
[2022-02-28] MEDS: HYDROmorphone 1 MG/1 ML SYRINGE IV PRN ×8 (01:55→23:26)
[2022-02-28] MEDS: METOCLOPRAMIDE 10 MG/2 ML VIAL IV SCH ×3 (05:04→17:29)
[2022-02-28 06:47] LABS: Basophils % 0.3 % (0.0-0.8); Eosinophils # 0.1 10*3/uL (0.0-0.87); Eosinophils % 1.8 % (0.00-10.9); Hematocrit 26.7 VOL% (42.0-52.0); Hemoglobin 8.3 GM/DL (14.0-18.0); Immature Granulocytes % 2.1 %; Immature Granulocytes Absolute 0.17 #; Lymphocytes # 2.4 10*3/uL (1.4-4.0); Lymphocytes % 29.7 % (21.2-54.2); Mean Corpuscular HGB Conc 31.1 GM/DL (32-36); Mean Corpuscular Volume 80.9 FL (87-102); Mean Platelet Volume 9.4 FL (9.6-12.0); Monocytes # 0.7 10*3/uL (0.11-0.8); Monocytes % 8.6 % (1.7-12.7); Neutrophils % 57.5 % (38.7-73.9); Platelet Count 392 T/CUMM (130-400); Red Cell Distribution Width 15.8 % (9.3-17.3)
[2022-02-28 07:01] LABS: Calcium 8.8 MG/DL (8.5-10.1); Osmolality,Calculated 277.5 MOS/KG (273-304); Potassium 3.4 MMOL/L (3.5-5.1)
[2022-02-28] MEDS ORDERED: POTASSIUM CHLORIDE 20 MEQ TABLET PO ONE (07:29)
[2022-02-28] MEDS: lisinopriL 5 MG TABLET PO SCH (08:57)
[2022-02-28] MEDS: DAPAGLIFLOZIN 10 MG TABLET PO SCH (08:57)
[2022-02-28] MEDS: PANTOPRAZOLE 40 MG TABLET PO SCH (08:57)
[2022-02-28] MEDS: CHOLECALCIFEROL 1,000 UNIT TABLET PO SCH (08:57)
[2022-02-28] MEDS: FERROUS SULFATE 325 MG TABLET PO SCH ×2 (08:57→20:57)
[2022-02-28] MEDS: FOLIC ACID 1 MG TABLET PO SCH ×2 (09:04→20:57)
[2022-02-28] MEDS: VANCOMYCIN INJ 1,250 MG in SODIUM CHLORIDE 0.9% 250 ML IV SCH (13:50)
[2022-02-28] MEDS: INSULIN GLARGINE 100 UNIT/ML SUBCUT SCH (20:58)
[2022-03-01] MEDS: METOCLOPRAMIDE 10 MG/2 ML VIAL IV SCH ×4 (00:51→17:38)
[2022-03-01] MEDS: INSULIN REGULAR 100 UNIT/ML SUBCUT SCH ×4 (00:52→18:29)
[2022-03-01] MEDS: HYDROmorphone 1 MG/1 ML SYRINGE IV PRN ×5 (04:56→22:07)
[2022-03-01 05:57] LABS: Basophils % 0.4 % (0.0-0.8); Eosinophils # 0.1 10*3/uL (0.0-0.87); Eosinophils % 1.3 % (0.00-10.9); Hematocrit 29.3 VOL% (42.0-52.0); Hemoglobin 9.2 GM/DL (14.0-18.0); Lymphocytes # 3.3 10*3/uL (1.4-4.0); Lymphocytes % 32.7 % (21.2-54.2); Mean Corpuscular HGB Conc 31.4 GM/DL (32-36); Mean Corpuscular Volume 81.8 FL (87-102); Mean Platelet Volume 9.2 FL (9.6-12.0); Monocytes # 0.7 10*3/uL (0.11-0.8); Monocytes % 7.2 % (1.7-12.7); Neutrophils % 56.4 % (38.7-73.9); Platelet Count 462 T/CUMM (130-400); Red Blood Count 3.58 MC/CUMM (3.8-5.5); Red Cell Distribution Width 15.9 % (9.3-17.3); White Blood Count 10.1 T/CUMM (4-12)
[2022-03-01 06:11] LABS: Calcium 9.4 MG/DL (8.5-10.1); Osmolality,Calculated 279.1 MOS/KG (273-304); Potassium 3.9 MMOL/L (3.5-5.1)
[2022-03-01] MEDS: DAPAGLIFLOZIN 10 MG TABLET PO SCH (08:28)
[2022-03-01] MEDS: FOLIC ACID 1 MG TABLET PO SCH ×2 (08:29→21:19)
[2022-03-01] MEDS: CHOLECALCIFEROL 1,000 UNIT TABLET PO SCH (08:29)
[2022-03-01] MEDS: lisinopriL 5 MG TABLET PO SCH (08:29)
[2022-03-01] MEDS: FERROUS SULFATE 325 MG TABLET PO SCH ×2 (08:29→21:19)
[2022-03-01] MEDS: PANTOPRAZOLE 40 MG TABLET PO SCH (08:29)
[2022-03-01] MEDS: VANCOMYCIN INJ 1,250 MG in SODIUM CHLORIDE 0.9% 250 ML IV SCH (08:30)
[2022-03-01] MEDS: INSULIN GLARGINE 100 UNIT/ML SUBCUT SCH (21:20)
[2022-03-02] MEDS: HYDROmorphone 1 MG/1 ML SYRINGE IV PRN ×5 (00:27→10:01)
[2022-03-02] MEDS: INSULIN REGULAR 100 UNIT/ML SUBCUT SCH ×3 (00:33→06:40)
[2022-03-02] MEDS: METOCLOPRAMIDE 10 MG/2 ML VIAL IV SCH ×2 (00:42→06:40)
[2022-03-02] MEDS: VANCOMYCIN INJ 1,250 MG in SODIUM CHLORIDE 0.9% 250 ML IV SCH (02:36)
[2022-03-02 02:40] LABS: Basophils % 0.3 % (0.0-0.8); Eosinophils # 0.1 10*3/uL (0.0-0.87); Eosinophils % 1.4 % (0.00-10.9); Hematocrit 28.8 VOL% (42.0-52.0); Hemoglobin 9.2 GM/DL (14.0-18.0); Immature Granulocytes % 2.2 %; Immature Granulocytes Absolute 0.19 #; Lymphocytes # 3.3 10*3/uL (1.4-4.0); Lymphocytes % 37.4 % (21.2-54.2); Mean Corpuscular HGB Conc 31.9 GM/DL (32-36); Mean Corpuscular Volume 82.3 FL (87-102); Mean Platelet Volume 8.7 FL (9.6-12.0); Monocytes # 0.7 10*3/uL (0.11-0.8); Monocytes % 7.6 % (1.7-12.7); Neutrophils % 51.1 % (38.7-73.9); Platelet Count 409 T/CUMM (130-400); Red Cell Distribution Width 15.8 % (9.3-17.3); White Blood Count 8.7 T/CUMM (4-12)
[2022-03-02 02:55] LABS: Calcium 8.5 MG/DL (8.5-10.1); Potassium 3.8 MMOL/L (3.5-5.1)
[2022-03-02 03:42] LABS: Hypochromia Slight; Microcytosis Slight; Platelet Estimate Adequate
[2022-03-02 07:35] VITALS: BP 125/73
[2022-03-02] MEDS: lisinopriL 5 MG TABLET PO SCH (10:01)
[2022-03-02] MEDS: FOLIC ACID 1 MG TABLET PO SCH (10:01)
[2022-03-02] MEDS: CHOLECALCIFEROL 1,000 UNIT TABLET PO SCH (10:01)
[2022-03-02] MEDS: PANTOPRAZOLE 40 MG TABLET PO SCH (10:01)
[2022-03-02] MEDS: DAPAGLIFLOZIN 10 MG TABLET PO SCH (10:02)
[2022-03-02] MEDS: FERROUS SULFATE 325 MG TABLET PO SCH (10:23)
[2022-03-02] MEDS ORDERED: VANCOMYCIN INJ 1,000 MG in SODIUM CHLORIDE 0.9% 250 ML IV SCH (18:00)
== END 2022-03-02 11:13 | disposition home or self-care (01) | DRG 344 ==
LOC: N.ED 16:49 → N.EDINP 16:49 → SUATTDRO 02-19 → N.2E 02-19 00:57 → SUATTDRO 02-21 07:49
PROVIDERS: ADMIT Family Medicine; ATTEND Family Medicine

== ENCOUNTER 2022-03-24 11:56 | Inpatient (IN) ==
[2022-03-24] MEDS ORDERED: ONDANSETRON 4 MG/2 ML VIAL IV STA (12:41)
[2022-03-24] MEDS ORDERED: SODIUM CHLORIDE 0.9% 1,000 ML IV STA ×3 (12:41→14:40)
[2022-03-24 12:59] LABS: Basophils % 0.3 % (0.0-0.8); Hematocrit 37.2 VOL% (42.0-52.0); Hemoglobin 12.3 GM/DL (14.0-18.0); Immature Granulocytes % 0.5 %; Immature Granulocytes Absolute 0.06 #; Lymphocytes # 1.7 10*3/uL (1.4-4.0); Lymphocytes % 13.6 % (21.2-54.2); Mean Corpuscular HGB Conc 33.1 GM/DL (32-36); Mean Corpuscular Volume 79.7 FL (87-102); Mean Platelet Volume 10.1 FL (9.6-12.0); Monocytes # 0.5 10*3/uL (0.11-0.8); Monocytes % 3.6 % (1.7-12.7); Platelet Count 427 T/CUMM (130-400); Red Blood Count 4.67 MC/CUMM (3.8-5.5); Red Cell Distribution Width 15.3 % (9.3-17.3); White Blood Count 12.6 T/CUMM (4-12)
[2022-03-24 13:19] LABS: Albumin 3.3 G/DL (3.4-5.0); Bilirubin,Total 0.6 MG/DL (0.20-1.00); Calcium 10.2 MG/DL (8.5-10.1); Osmolality,Calculated 302.2 MOS/KG (273-304); Potassium 4.1 MMOL/L (3.5-5.1); Total Protein 10.1 G/DL (6.4-8.2)
[2022-03-24] MEDS ORDERED: INSULIN REGULAR 100 UNIT/ML IV STA ×2 (13:34→14:41)
[2022-03-24] MEDS ORDERED: LABETALOL 20 MG/4 ML SYRINGE IV STA (13:54)
[2022-03-24 14:00] LABS: Urine Appearance Clear (Clear); Urine Color Yellow (Yellow)
[2022-03-24 14:01] LABS: Bilirubin,Urine Negative (Negative); Blood, Urine Trace mg/dL (Negative); Glucose,Urine (UA) 500 mg/dL (Negative); Ketones,Urine 15 mg/dL (Negative); Nitrite,Urine Negative (Negative); Protein,Urine 100 mg/dL (Negative); Urine Specific Gravity 1.015 (1.001-1.035); Urine Urobilinogen 0.2 eU/dL (<2.0)
[2022-03-24 14:04] LABS: RBC,Urine <1 /HPF (0-4)
[2022-03-24] MEDS ORDERED: LACTATED RINGERS 1,000 ML IV ONE (14:40)
[2022-03-24] MEDS ORDERED: ACETAMINOPHEN 325 MG TABLET PO PRN (14:42)
[2022-03-24] MEDS ORDERED: GLUCAGON 1 MG VIAL IM PRN (14:42)
[2022-03-24] MEDS ORDERED: DEXTROSE 10% 250 ML BAG IV PRN (14:56)
[2022-03-24] MEDS: ONDANSETRON 4 MG/2 ML VIAL IV PRN ×2 (16:45→20:41)
[2022-03-24] MEDS: ENOXAPARIN 30 MG/0.3 ML SYRINGE SUBCUT SCH (17:04)
[2022-03-24] MEDS: amLODIPine 5 MG TABLET PO SCH (17:04)
[2022-03-24] MEDS: INSULIN LISPRO 100 UNIT/ML SUBCUT SCH ×2 (17:04→20:41)
[2022-03-24] MEDS: SODIUM CHLORIDE 0.9% 1,000 ML IV SCH (17:04)
[2022-03-24] MEDS: INSULIN GLARGINE 100 UNIT/ML SUBCUT SCH (17:51)
[2022-03-24] MEDS ORDERED: INSULIN LISPRO 100 UNIT/ML SUBCUT SCH (18:00)
[2022-03-24] MEDS ORDERED: PROMETHAZINE 25 MG/1 ML VIAL IM ONE (23:10)
[2022-03-25] MEDS: ONDANSETRON 4 MG/2 ML VIAL IV PRN ×4 (03:00→17:02)
[2022-03-25 03:10] LABS: Basophils % 0.3 % (0.0-0.8); Eosinophils % 0.1 % (0.00-10.9); Hematocrit 33.7 VOL% (42.0-52.0); Immature Granulocytes % 0.4 %; Immature Granulocytes Absolute 0.05 #; Lymphocytes # 3.8 10*3/uL (1.4-4.0); Lymphocytes % 27.3 % (21.2-54.2); Mean Corpuscular HGB Conc 32.6 GM/DL (32-36); Mean Corpuscular Volume 81.4 FL (87-102); Mean Platelet Volume 9.5 FL (9.6-12.0); Monocytes # 0.8 10*3/uL (0.11-0.8); Monocytes % 5.5 % (1.7-12.7); Neutrophils % 66.4 % (38.7-73.9); Platelet Count 360 T/CUMM (130-400); Red Blood Count 4.14 MC/CUMM (3.8-5.5); Red Cell Distribution Width 15.5 % (9.3-17.3); White Blood Count 13.8 T/CUMM (4-12)
[2022-03-25] MEDS: SODIUM CHLORIDE 0.9% 1,000 ML IV SCH ×2 (03:14→12:40)
[2022-03-25 03:32] LABS: % Iron Saturation 28.1 % (18-50); Ferritin 300.9 ng/mL (26-388)
[2022-03-25 03:38] LABS: Calcium 9.1 MG/DL (8.5-10.1); Osmolality,Calculated 283.3 MOS/KG (273-304); Potassium 3.3 MMOL/L (3.5-5.1); Risk Ratio 3.85; Thyroid Stimulating Hormone 1.14 uIU/ml (0.358-3.74); VLDL Cholesterol 22.4 MG/DL
[2022-03-25] MEDS: INSULIN GLARGINE 100 UNIT/ML SUBCUT SCH (08:59)
[2022-03-25] MEDS: INSULIN LISPRO 100 UNIT/ML SUBCUT SCH ×4 (08:59→20:35)
[2022-03-25] MEDS: PROMETHAZINE 25 MG/1 ML VIAL IM PRN ×3 (09:36→19:52)
[2022-03-25] MEDS: amLODIPine 5 MG TABLET PO SCH (10:59)
[2022-03-25] MEDS: PANTOPRAZOLE 40 MG TABLET PO SCH (10:59)
[2022-03-25] MEDS ORDERED: SKIN HEALING OINT (AQUAPHOR) 50 GM TUBE TOP PRN (13:46)
[2022-03-25] MEDS: ENOXAPARIN 30 MG/0.3 ML SYRINGE SUBCUT SCH (15:05)
[2022-03-25] MEDS ORDERED: INSULIN GLARGINE 100 UNIT/ML SUBCUT SCH (16:00)
[2022-03-25] MEDS: AZITHROMYCIN INJ 500 MG in SODIUM CHLORIDE 0.9% 250 ML IV SCH (17:02)
[2022-03-26] MEDS: LACTATED RINGERS 1,000 ML IV SCH ×3 (00:37→23:53)
[2022-03-26 05:47] LABS: Basophils % 0.3 % (0.0-0.8); Eosinophils # 0.3 10*3/uL (0.0-0.87); Eosinophils % 2.7 % (0.00-10.9); Hematocrit 31.9 VOL% (42.0-52.0); Hemoglobin 10.6 GM/DL (14.0-18.0); Immature Granulocytes % 0.4 %; Immature Granulocytes Absolute 0.05 #; Lymphocytes # 3.4 10*3/uL (1.4-4.0); Mean Corpuscular HGB Conc 33.2 GM/DL (32-36); Mean Corpuscular Volume 81.6 FL (87-102); Monocytes # 0.8 10*3/uL (0.11-0.8); Neutrophils % 60.6 % (38.7-73.9); Platelet Count 328 T/CUMM (130-400); Red Blood Count 3.91 MC/CUMM (3.8-5.5); White Blood Count 11.6 T/CUMM (4-12)
[2022-03-26 06:11] LABS: Calcium 8.5 MG/DL (8.5-10.1); Osmolality,Calculated 281.4 MOS/KG (273-304); Potassium 3.4 MMOL/L (3.5-5.1)
[2022-03-26] MEDS: PROMETHAZINE 25 MG/1 ML VIAL IM PRN (06:18)
[2022-03-26] MEDS: INSULIN GLARGINE 100 UNIT/ML SUBCUT SCH (09:49)
[2022-03-26] MEDS: INSULIN LISPRO 100 UNIT/ML SUBCUT SCH ×4 (09:49→21:17)
[2022-03-26] MEDS: PANTOPRAZOLE 40 MG TABLET PO SCH (09:49)
[2022-03-26] MEDS: amLODIPine 5 MG TABLET PO SCH (09:49)
[2022-03-26] MEDS: ONDANSETRON 4 MG/2 ML VIAL IV PRN ×2 (12:31→21:17)
[2022-03-26] MEDS: SODIUM CHLORIDE 0.9% 1,000 ML IV SCH (13:31)
[2022-03-26] MEDS: ENOXAPARIN 30 MG/0.3 ML SYRINGE SUBCUT SCH (15:37)
[2022-03-26] MEDS: AZITHROMYCIN INJ 500 MG in SODIUM CHLORIDE 0.9% 250 ML IV SCH (16:46)
[2022-03-27] MEDS: ONDANSETRON 4 MG/2 ML VIAL IV PRN ×3 (04:42→20:56)
[2022-03-27 05:50] LABS: Basophils % 0.4 % (0.0-0.8); Eosinophils # 0.4 10*3/uL (0.0-0.87); Eosinophils % 3.1 % (0.00-10.9); Hematocrit 31.4 VOL% (42.0-52.0); Hemoglobin 10.4 GM/DL (14.0-18.0); Immature Granulocytes % 0.4 %; Immature Granulocytes Absolute 0.05 #; Lymphocytes # 4.6 10*3/uL (1.4-4.0); Lymphocytes % 41.6 % (21.2-54.2); Mean Corpuscular HGB Conc 33.1 GM/DL (32-36); Monocytes # 0.7 10*3/uL (0.11-0.8); Neutrophils % 48.5 % (38.7-73.9); Platelet Count 320 T/CUMM (130-400); Red Blood Count 3.83 MC/CUMM (3.8-5.5); Red Cell Distribution Width 14.8 % (9.3-17.3); White Blood Count 11.1 T/CUMM (4-12)
[2022-03-27 06:15] LABS: Calcium 8.6 MG/DL (8.5-10.1); Potassium 3.2 MMOL/L (3.5-5.1)
[2022-03-27 06:42] LABS: Anisocytosis 1+; Platelet Estimate Normal
[2022-03-27] MEDS: INSULIN LISPRO 100 UNIT/ML SUBCUT SCH ×4 (08:57→20:53)
[2022-03-27] MEDS: PROMETHAZINE 25 MG/1 ML VIAL IM PRN ×2 (08:58→17:30)
[2022-03-27] MEDS: amLODIPine 5 MG TABLET PO SCH (09:44)
[2022-03-27] MEDS: PANTOPRAZOLE 40 MG TABLET PO SCH (09:44)
[2022-03-27] MEDS: ENOXAPARIN 30 MG/0.3 ML SYRINGE SUBCUT SCH (17:05)
[2022-03-27] MEDS: LACTATED RINGERS 1,000 ML IV SCH (17:05)
[2022-03-27] MEDS: AZITHROMYCIN INJ 500 MG in SODIUM CHLORIDE 0.9% 250 ML IV SCH (17:12)
[2022-03-27] MEDS ORDERED: INSULIN GLARGINE 100 UNIT/ML SUBCUT SCH (21:00)
[2022-03-28] MEDS: LACTATED RINGERS 1,000 ML IV SCH ×2 (00:15→13:20)
[2022-03-28] MEDS: ONDANSETRON 4 MG/2 ML VIAL IV PRN (03:39)
[2022-03-28 05:56] LABS: Basophils % 0.3 % (0.0-0.8); Eosinophils # 0.2 10*3/uL (0.0-0.87); Eosinophils % 2.2 % (0.00-10.9); Hematocrit 30.7 VOL% (42.0-52.0); Hemoglobin 10.3 GM/DL (14.0-18.0); Immature Granulocytes % 0.7 %; Immature Granulocytes Absolute 0.07 #; Lymphocytes # 2.6 10*3/uL (1.4-4.0); Lymphocytes % 26.7 % (21.2-54.2); Mean Corpuscular HGB Conc 33.6 GM/DL (32-36); Mean Corpuscular Volume 80.2 FL (87-102); Mean Platelet Volume 10.3 FL (9.6-12.0); Monocytes # 0.7 10*3/uL (0.11-0.8); Monocytes % 7.4 % (1.7-12.7); Neutrophils % 62.7 % (38.7-73.9); Platelet Count 287 T/CUMM (130-400); Red Blood Count 3.83 MC/CUMM (3.8-5.5); Red Cell Distribution Width 14.6 % (9.3-17.3); White Blood Count 9.8 T/CUMM (4-12)
[2022-03-28 06:08] LABS: Calcium 8.2 MG/DL (8.5-10.1); Osmolality,Calculated 283.7 MOS/KG (273-304); Potassium 3.3 MMOL/L (3.5-5.1)
[2022-03-28 06:24] LABS: Platelet Estimate Adequate; Schistocytes Few
[2022-03-28 06:25] LABS: Polychromasia Slight
[2022-03-28] MEDS: PANTOPRAZOLE 40 MG TABLET PO SCH (08:39)
[2022-03-28] MEDS: amLODIPine 5 MG TABLET PO SCH (08:39)
[2022-03-28] MEDS: POTASSIUM CHLORIDE 20 MEQ TABLET PO PRN ×2 (08:39→12:24)
[2022-03-28] MEDS: INSULIN LISPRO 100 UNIT/ML SUBCUT SCH ×2 (08:41→11:33)
[2022-03-28] MEDS ORDERED: DAPAGLIFLOZIN 10 MG TABLET PO SCH (09:00)
[2022-03-28 11:45] VITALS: BP 151/91
[2022-03-28] MEDS: PROMETHAZINE 25 MG/1 ML VIAL IM PRN (12:42)
[2022-03-29] MEDS ORDERED: AZITHROMYCIN 250 MG TABLET PO SCH (09:00)
== END 2022-03-28 14:45 | disposition home or self-care (01) | DRG 48 ==
LOC: N.ED 11:56 → N.3E 15:27 → SUATTDRO 15:27 → N.3E 16:28
PROVIDERS: ADMIT Family Medicine; ATTEND Hospitalist